=== PATIENT | female | born 1940 | race Caucasian/White ===

== ENCOUNTER → 2017-01-03 | Outpatient (CLI) | payer OTHER, MEDICARE | LOC: BHFA 14:45 | PROVIDERS: ATTEND Internal Medicine Cardiovascular Disease | DX: I10 Essential (primary) hypertension (principal); R60.9 Edema, unspecified; R06.02 Shortness of breath; I42.9 Cardiomyopathy, unspecified ==

== ENCOUNTER → 2017-01-20 | Outpatient (CLI) | payer OTHER, MEDICARE | LOC: BHFA 13:30 | PROVIDERS: ATTEND Internal Medicine Cardiovascular Disease | DX: I42.9 Cardiomyopathy, unspecified (principal); R06.02 Shortness of breath; I10 Essential (primary) hypertension; G47.33 Obstructive sleep apnea (adult) (pediatric); E78.5 Hyperlipidemia, unspecified ==

== ENCOUNTER → 2017-02-02 | Outpatient (CLI) | payer OTHER, MEDICARE | LOC: FIMAGING 14:02 | PROVIDERS: ATTEND Internal Medicine | DX: K80.20 Calculus of gallbladder without cholecystitis without obstruction (principal); K76.0 Fatty (change of) liver, not elsewhere classified; R16.0 Hepatomegaly, not elsewhere classified ==

== ENCOUNTER 2017-05-14 07:14 | Observation (INO) | payer OTHER, MEDICARE ==
[2017-05-14] MEDS ORDERED: ONDANSETRON 4 MG/2 ML VIAL IVP ONE (07:22)
[2017-05-14] MEDS ORDERED: HYDROmorphONE/DILAUDID 1 MG/ML INJ IVP ONE (07:22)
[2017-05-14] MEDS ORDERED: NS 500 ML IV ONE (07:23)
--- NOTE | 2017-05-14 07:25 | EDPHY ---
H & P Time Seen by Provider: 05/14/17 07:15 HPI/ROS: CHIEF COMPLAINT: Left-sided abdominal pain HISTORY OF PRESENT ILLNESS: Patient is a 76-year-old female with a history of CHF and Graves disease and obesity who comes to the emergency department complaining of left lower quadrant pain for the last 4 days now radiating up to her left upper quadrant. She still has self-diagnosed with diverticulitis is in the past and states that he usually resolves with a soft diet. She has been on the soft and then liquid diet since Tuesday without resolution. No fevers. Intermittent diarrhea that is been nonbloody. No vomiting. She does suffer from heartburn as well. It has not been worse lately. No urinary symptoms. No abdominal surgeries other than tubal ligation. REVIEW OF SYSTEMS: Constitutional: denies: chills, fever, recent illness, recent injury EENTM: denies: blurred vision, double vision, nose congestion Respiratory: denies: cough, shortness of breath Cardiac: denies: chest pain, irregular heart rate, lightheadedness, palpitations Gastrointestinal/Abdominal: See HPI Genitourinary: denies: dysuria, frequency, hematuria, pain Musculoskeletal: denies: joint pain, muscle pain Skin: denies: lesions, rash, jaundice, bruising Neurological: denies: headache, numbness, paresthesia, tingling, dizziness, weakness Hematologic/Lymphatic: denies: blood clots, easy bleeding, easy bruising Immunologic/allergic: denies: HIV/AIDS, transplant EXAM: GENERAL: Well-appearing, obese and in no acute distress. HEAD: Atraumatic, normocephalic. EYES: Pupils equal round and reactive to light, extraocular movements intact, sclera anicteric, conjunctiva are normal. ENT: TMs normal, nares patent, oropharynx clear without exudates. Moist mucous membranes. NECK: Normal range of motion, supple without lymphadenopathy or JVD. LUNGS: Breath sounds clear to auscultation bilaterally and equal. No wheezes rales or rhonchi. HEART: Regular rate and rhythm without murmurs, rubs or gallops. ABDOMEN: Soft, nontender, normoactive bowel sounds. No guarding, no rebound. No masses appreciated. BACK: No CVA tenderness, no spinal tenderness, step-offs or deformities EXTREMITIES: Normal range of motion, no pitting or edema. No clubbing or cyanosis. NEUROLOGICAL: Cranial nerves II through XII grossly intact. Normal speech, normal gait. 5/5 strength, normal movement in all extremities, normal sensation PSYCH: Normal mood, normal affect. SKIN: Warm, dry, normal turgor, no visible rashes or lesions. Source: Patient Exam Limitations: No limitations - Medical/Surgical History Hx Asthma: No Hx Chronic Respiratory Disease: No Hx Diabetes: No Hx Cardiac Disease: Yes Other PMH: CHF with ejection fraction 30%, home oxygen, Graves disease, obesity - Family History Significant Family History: No pertinent family hx - Social History Alcohol Use: Sober Drug Use: None Constitutional: Initial Vital Signs Temperature (C) 36.9 C 05/14/17 07:18 Heart Rate 86 05/14/17 07:18 Respiratory Rate 18 05/14/17 07:18 Blood Pressure 146/70 H 05/14/17 07:18 O2 Sat (%) 93 05/14/17 07:18 O2 Delivery Mode Room Air Allergies/Adverse Reactions: miconazole [From Neosporin AF] Allergy (Unknown, Verified 05/14/17 11:41) Unknown Home Medications: Medication Instructions Recorded Furosemide [Lasix 40 MG (*)] 40 mg PO BIDDIUR 03/27/10 Gabapentin [Neurontin] 600 mg PO TID 03/27/10 Levothyroxine [Synthroid 137 mcg 137 mcg PO DAILY06 03/27/10 (*)] Aspirin EC [Aspirin EC 325 mg (*)] 325 mg PO DAILY 05/14/17 Bupropion HCl [Wellbutrin Xl] 300 mg PO DAILY 05/14/17 Calcium Carbonate/Vitamin D3 1 tab PO DAILY 05/14/17 [Oyster Shell Calcium-Vit D Tab] Carvedilol [Coreg (*)] 25 mg PO BIDMEAL 05/14/17 Herbals/Supplements -Info Only 1 ea PO DAILY 05/14/17 Multivitamins [Multivitamin (*)] 1 each PO DAILY 05/14/17 Pramipexole Di-HCl [Mirapex 1 mg 1 - 2 mg PO HS PRN 05/14/17 (*)] Sacubitril/Valsartan 24/26Mg 1 tab PO BID 05/14/17 [Entresto 24 mg/26 mg (RX)] Spironolactone [Aldactone 25 MG 25 mg PO DAILY 05/14/17 (*)] Ciprofloxacin [Cipro] 500 mg PO BID #14 tab 05/15/17 metroNIDAZOLE [Flagyl 500 mg (*)] 500 mg PO BID #39 tab 05/15/17 Medical Decision Making - Diagnostics EKG Interpretation: An EKG obtained and was read and documented in trace view. Please see trace view for full reading and report. Left bundle branch block, no acute ischemic changes . ED Course/Re-evaluation: 10:00 a.m. we discussed the CT results. I recommended admission and antibiotics. The patient agrees. I discussed the case with Dr. Mathieu Kong who will admit to the medical service. Patient is currently not having any cardiac issues. Differential Diagnosis: Partial list of the Differential diagnosis considered include but were not limited to; diverticulitis, perforation, kidney stone, urinary tract infection and although unlikely based on the history and physical exam, I also considered obstruction, ischemia, chest pain. - Data Points Laboratory Results: Laboratory Results 05/14/17 08:50 05/14/17 08:50 Medications Given: Discontinued Medications Acetaminophen (Tylenol) 650 mg PO Q6H PRN PRN Reason: Pain, Mild/Fever, Can Take PO Stop: 11/10/17 18:00 Last Admin: 05/15/17 07:56 Dose: 650 mg Aspirin Buffered (Aspirin Ec) 325 mg PO DAILY [facility] Stop: 11/11/17 08:59 Last Admin: 05/15/17 07:57 Dose: 325 mg Bupropion HCl (Wellbutrin Xl) 300 mg PO DAILY VANDA Stop: 11/11/17 08:59 Last Admin: 05/15/17 12:14 Dose: 300 mg Calcium/Vitamin D (Calcium Carb W/Vit D) 500 mg PO DAILY [facility] Stop: 11/11/17 08:59 Last Admin: 05/15/17 08:00 Dose: Not Given Carvedilol (Coreg) 25 mg PO BIDMEAL [facility] Stop: 11/10/17 17:59 Last Admin: 05/15/17 07:58 Dose: 25 mg Enoxaparin Sodium (Lovenox) 40 mg SC DAILY [facility] Stop: 11/11/17 08:59 Last Admin: 05/15/17 07:54 Dose: 40 mg Furosemide (Lasix) 40 mg PO BIDDIUR [facility] Stop: 11/10/17 14:59 Last Admin: 05/15/17 07:58 Dose: 40 mg Gabapentin (Neurontin) 600 mg PO TID VANDA Stop: 11/10/17 15:59 Last Admin: 05/15/17 07:57 Dose: 600 mg Hydromorphone HCl (Dilaudid) 0.5 mg IVP EDNOW ONE Stop: 05/14/17 07:23 Last Admin: 05/14/17 10:50 Dose: Not Given Hyoscyamine Sulfate (Levsin, Hyomax-Sl) 0.125 mg PO Q6HRS PRN PRN Reason: abd pain Stop: 11/10/17 12:36 Last Admin: 05/14/17 14:23 Dose: 0.125 mg Sodium Chloride (Ns) 500 mls @ 0 mls/hr IV EDNOW ONE; Wide Open PRN Reason: Protocol Stop: 05/14/17 07:24 Last Admin: 05/14/17 09:13 Dose: 500 mls Levofloxacin/Dextrose (Levaquin 750 Mg (Premix)) 150 mls @ 100 mls/hr IV EDNOW ONE PRN Reason: Protocol Stop: 05/14/17 11:27 Last Admin: 05/14/17 11:54 Dose: 150 mls Metronidazole/Sodium Chloride (Flagyl 500 Mg (Premix)) 100 mls @ 100 mls/hr IV EDNOW ONE PRN Reason: Protocol Stop: 05/14/17 10:59 Last Admin: 05/14/17 10:31 Dose: 100 mls Levofloxacin/Dextrose (Levaquin 750 Mg (Premix)) 150 mls @ 100 mls/hr IV DAILY VANDA PRN Reason: Protocol Stop: 06/14/17 08:59 Last Admin: 05/15/17 07:54 Dose: 150 mls Metronidazole/Sodium Chloride (Flagyl 500 Mg (Premix)) 100 mls @ 100 mls/hr IV Q8H VANDA PRN Reason: Protocol Stop: 06/13/17 17:59 Last Admin: 05/15/17 10:24 Dose: 100 mls Levothyroxine Sodium (Synthroid) 137 mcg PO DAILY06 VANDA Stop: 11/11/17 05:59 Last Admin: 05/15/17 05:23 Dose: 137 mcg Multivitamins (Tab-A-Sharon) 1 each PO DAILY VANDA Stop: 11/11/17 08:59 Last Admin: 05/15/17 08:00 Dose: 1 each Ondansetron HCl (Zofran) 4 mg IVP EDNOW ONE Stop: 05/14/17 07:23 Last Admin: 05/14/17 10:50 Dose: Not Given Pramipexole Dihydrochloride (Mirapex) 1 - 2 mg PO HS PRN PRN Reason: restless leg Stop: 11/10/17 12:28 Last Admin: 05/14/17 21:22 Dose: 1 mg Sacubitril/Valsartan (Entresto 24 Mg/26 Mg) 1 ea PO BID VANDA Stop: 11/10/17 20:59 Last Admin: 05/15/17 07:59 Dose: 1 ea Spironolactone (Aldactone) 25 mg PO DAILY VANDA Stop: 11/11/17 08:59 Last Admin: 05/15/17 12:15 Dose: 25 mg Departure - Departure Disposition: [facility] Acute Clinical Impression: Diverticulitis large intestine w/o perforation or abscess w/o bleeding Condition: Fair
[2017-05-14 08:10] LABS: COLOR YELLOW; LEUKOCYTE ESTERASE,URINE NEGATIVE (NEGATIVE); NITRITE,URINE NEGATIVE (NEGATIVE)
[2017-05-14 08:14] LABS: BACTERIA TRACE /hpf (NONE SEEN); MUCUS TRACE /lpf (NONE-1+)
--- NOTE | 2017-05-14 08:22 | CPEKG ---
Heart Rate: 78 RR Interval: 769 P-R Interval: 196 QRSD Interval: 156 QT Interval: 432 QTC Interval: 493 P Cotuit: 62 QRS Cotuit: -44 T Wave Cotuit: 120 EKG Severity - ABNORMAL ECG - EKG Impression: SINUS RHYTHM EKG Impression: LEFT BUNDLE BRANCH BLOCK Electronically Signed By: Jonathan Gant 14-May-2017 08:58:38
[2017-05-14] MEDS ORDERED: IOPAMIDOL (ISOVUE-300) 100 ML BTL ONE (08:49)
[2017-05-14 09:02] LABS: % IMMATURE GRANULYOCYTES 0.6 % (0.0-1.1); ABSOLUTE IMMATURE GRANULOCYTES 0.05 10^3/uL (0.00-0.10); ADD DIFF? NO; ADD MORPH? NO; ADD SCAN? NO; ATYPICAL LYMPHOCYTE FLAG 0 (0-99); FRAGMENT RBC FLAG 0 (0-99); HEMATOCRIT 41.7 % (38.0-47.0); HEMOGLOBIN 14.5 g/dL (12.6-16.3); LEFT SHIFT FLG 0 (0-99); LIPEMIA HEMOLYSIS FLAG 90 (0-99); MEAN CELL HEMOGLOBIN 33.3 pg (27.9-34.1); MEAN CELL HEMOGLOBIN CONCENTR. 34.8 g/dL (32.4-36.7); MEAN CELL VOLUME 95.9 fL (81.5-99.8); MEAN PLATELET VOLUME 10.6 fL (8.7-11.7); PLATELET CLUMPS FLAG 0 (0-99); PLATELET COUNT 191 10^3/uL (150-400); RED BLOOD CELL COUNT 4.35 10^6/uL (4.18-5.33); RED CELL DISTRIBUTION WIDTH 13.8 % (11.5-15.2)
[2017-05-14 09:13] LABS: ALANINE AMINOTRANSFERASE 45 IU/L (9-52); ALBUMIN 3.8 g/dL (3.5-5.0); ALKALINE PHOSPHATASE 146 IU/L (38-126); ANION GAP 10 mEq/L (8-16); ASPARTATE AMINOTRANSFERASE 25 IU/L (14-46); BILIRUBIN,TOTAL 0.6 mg/dL (0.1-1.4); BILIRUBIN-CONJUGATED 0.1 mg/dL (0.0-0.5); BILIRUBIN-UNCONJUGATED 0.5 mg/dL (0.0-1.1); CALCIUM 9.1 mg/dL (8.5-10.4); CARBON DIOXIDE 30 mEq/l (22-31); CHLORIDE 100 mEq/L (97-110); CREATININE 0.9 mg/dL (0.6-1.0); GLOMERULAR FILTRATION RATE > 60; GLUCOSE 126 mg/dL (70-100); SODIUM 140 mEq/L (134-144); TOTAL PROTEIN 6.6 g/dL (6.3-8.2)
[2017-05-14] MEDS ORDERED: PRAMIPEXOLE 1 MG TAB PO PRN (12:29)
[2017-05-14] MEDS ORDERED: HYOSCYAMINE SULFATE 0.125 MG TAB PO PRN (12:37)
--- NOTE | 2017-05-14 13:13 | GHP ---
[f rep st] HISTORY AND PHYSICAL DATE OF ADMISSION: 05/14/2017 CHIEF COMPLAINT: Abdominal pain. HISTORY OF PRESENT ILLNESS: This is a 76-year-old female with history of cardiomyopathy, with ejecti on fraction in the mid 30s, as well as diverticulitis, presented to the emergency department today wi th abdominal pain. The patient states that she has had bouts of this type of pain for years. The la st time she was formally diagnosed with diverticulitis was about 7 years ago, when she was treated wi antibiotics. She did have a colonoscopy about 10 years ago, which she tells me was unremarkable. The patient developed some crampy left lower quadrant abdominal pain Tuesday night. She then start ed a clear liquid diet. Either Tuesday or night she noticed low-grade fever. She has bee n on a clear liquid diet since her symptoms on Tuesday, but today, developed which she described as a sharp left-sided pain, rated 7/10, that subsequently brought her in the emergency department for further evaluation. She d enies any nausea or vomiting. Her last bowel movement was on , and was described as diarrhea . PAST MEDICAL HISTORY: 1. Systolic congestive heart failure/cardiomyopathy with ejection fraction in the mid 30s. Followed by Dr. Okeefe in Cardiology. 2. Graves disease, status post radioactive iodine ablation. Now on replacement. 3. Breast cancer, status post mastectomy. 4. Obstructive sleep apnea. 5. Chronic hypoxemic respiratory failure due to congestive heart failure. HOME MEDICATIONS: Reviewed, refer to [facility] [employer] for details. ALLERGIES: Miconazole. SOCIAL HISTORY: She denies any tobacco or illicit drug use. She is a former smoker. She drinks vanda roximately an ounce of bourbon per night. FAMILY HISTORY: Reviewed and noncontributory. REVIEW OF SYSTEMS: Comprehensive 10-point review of systems was done and is negative, except for as mentioned in HPI and below. CARDIOVASCULAR: The patient denies any chest pain. She is chronically short of breath and is on home oxygen. PHYSICAL EXAM: VITAL SIGNS: Blood pressure 129/86, pulse 75, respiratory rate 18, O2 saturation 94% on room air. Temperature afebrile. GENERAL: In no acute distress. HEART: S1, S2. LUNGS: Clear . No wheezes, rales, or rhonchi. ABDOMEN: Soft, with mild distention. There is some tenderness to deep palpation in the left lower quadrant. There is no guarding or rebound tenderness. Bowel sound s are normoactive. EXTREMITIES: No clubbing or cyanosis. NEURO: Cranial nerves 2-12 grossly intac t. No focal motor or sensory deficits. SKIN: Clear, no rashes. DIAGNOSTICS: CT of the abdomen was reviewed, showing acute diverticulitis at the junction of the misa cending and sigmoid colon without abscess or perforation. There is also a small right adrenal gland nodule, it is mildly increased 2011, and most likely compatible with adenoma. WBC is 8.6, hemoglobin 14.5, hematocrit 41.7, platelets 191. Sodium 140, potassium 4, chloride 100, CO2 30, BUN 12, creatinine 0.9, glucose 126. LFTs unremarkable, with the exception of alk phosphatas e of 146. EKG, which I visualized and personally interpreted, shows sinus rhythm, rate 78 beats per minute, wit h left bundle branch block. ASSESSMENT AND PLAN: This is a 76-year-old female with history of cardiomyopathy, ejection fraction in the mid 30s, presenting with: 1. Abdominal pain, most likely due to diverticulitis. Plan: The patient will be placed on observat ion, where we will continue IV levofloxacin and Flagyl. We will start a soft diet. If she continues to be able to tolerate diet with adequate pain control, she may be eligible for discharge in the [facility]. However, if her pain persists, and she is unable to tolerate p.o., she may require inpatient h ospitalization. 2. History of cardiomyopathy with chronic respiratory failure, that appears to be compensated. Plan : We will monitor for signs and symptoms of congestive heart failure. 3. Adrenal nodule seen on CT. Most likely representing adenoma per Dr. Huitron in radiology. Plan: The patient should discuss this with her primary care provider, and monitor as indicated. /[id number]/MODL
[2017-05-14] MEDS: FUROSEMIDE 40 MG TAB PO SCH (14:20)
[2017-05-14] MEDS ORDERED: NON-FORMULARY NEW DRUG (Gabapentin [Neurontin] 600 MG) PO SCH (16:00)
[2017-05-14] MEDS: GABAPENTIN 300 MG CAP PO SCH ×2 (16:49→20:46)
[2017-05-14] MEDS: CARVEDILOL 25 MG TAB PO SCH (16:50)
[2017-05-14] MEDS ORDERED: ACETAMINOPHEN 325 MG TAB PO PRN (18:01)
[2017-05-14] MEDS: SACUBITRIL/VALSARTAN 24/26MG 1 EA TAB PO SCH (20:46)
[2017-05-14 23:19] VITALS: RESP 18
[2017-05-15] MEDS ORDERED: LEVOTHYROXINE 137 MCG TAB PO SCH (06:00)
[2017-05-15] MEDS: GABAPENTIN 300 MG CAP PO SCH (07:57)
[2017-05-15] MEDS: FUROSEMIDE 40 MG TAB PO SCH (07:58)
[2017-05-15] MEDS: CARVEDILOL 25 MG TAB PO SCH (07:58)
[2017-05-15] MEDS: SPIRONOLACTONE 25 MG TAB PO SCH ×2 (07:58→12:15)
[2017-05-15] MEDS: buPROPion XL 150 MG TAB PO SCH ×3 (07:59→12:14)
[2017-05-15] MEDS: SACUBITRIL/VALSARTAN 24/26MG 1 EA TAB PO SCH (07:59)
[2017-05-15] MEDS ORDERED: CALCIUM CARB W/VIT D 500 MG TAB PO SCH ×2 (09:00)
[2017-05-15] MEDS ORDERED: ASPIRIN EC 325 MG TAB PO SCH (09:00)
[2017-05-15] MEDS ORDERED: Herbals/Supplements -Info Only PO SCH (09:00)
[2017-05-15] MEDS ORDERED: ENOXAPARIN 40 MG/0.4 ML SYR SC SCH (09:00)
[2017-05-15] MEDS ORDERED: NON-FORMULARY NEW DRUG (Bupropion Hcl [Wellbutrin Xl] 300 MG) PO SCH (09:00)
[2017-05-15] MEDS ORDERED: MULTIVITAMINS 1 EACH TAB PO SCH (09:00)
[2017-05-15 11:15] VITALS: BP 129/61; PULSE 80; TEMP 97.5; O2SAT 94
--- NOTE | 2017-05-15 12:18 | PDIAF ---
- Diagnosis Diagnosis: diverticulitis Code Status: Full Code - Medication Management Discharge Medications: Medications to Continue on Transfer Furosemide [Lasix 40 MG (*)] 40 mg PO BIDDIUR 03/27/10 [Last Taken 05/13/17 15: 00] Gabapentin [Neurontin] 600 mg PO TID 03/27/10 [Last Taken 05/14/17 06:00] Levothyroxine [Synthroid 137 mcg (*)] 137 mcg PO DAILY06 03/27/10 [Last Taken ] Aspirin EC [Aspirin EC 325 mg (*)] 325 mg PO DAILY 05/14/17 [Last Taken 05/13/17 ] Bupropion HCl [Wellbutrin Xl] 300 mg PO DAILY 05/14/17 [Last Taken 05/13/17] Calcium Carbonate/Vitamin D3 [Oyster Shell Calcium-Vit D Tab] 1 tab PO DAILY 05/20 [Last Taken 05/13/17] Carvedilol [Coreg (*)] 25 mg PO BIDMEAL 05/14/17 [Last Taken 05/13/17 18:00] Herbals/Supplements -Info Only 1 ea PO DAILY 05/14/17 [Last Taken Unknown] Multivitamins [Multivitamin (*)] 1 each PO DAILY 05/14/17 [Last Taken 05/13/17] Pramipexole Di-HCl [Mirapex 1 mg (*)] 1 - 2 mg PO HS PRN 05/14/17 [Last Taken ] Sacubitril/Valsartan 24/26Mg [Entresto 24 mg/26 mg (RX)] 1 tab PO BID 05/14/17 [ Last Taken Unknown] Spironolactone [Aldactone 25 MG (*)] 25 mg PO DAILY 05/14/17 [Last Taken ] Ciprofloxacin [Cipro] 500 mg PO BID #14 tab 05/15/17 [Last Taken Unknown] metroNIDAZOLE [Flagyl 500 mg (*)] 500 mg PO BID #39 tab 05/15/17 [Last Taken Unknown] Discharge Medications: Refer to the Discharge Home Medication list for PRN reason. - Orders Services needed: Home Care, Physical Therapy Home Care Face to Face: I certify that this patient was under my care and that I had the required [id number] encounter meeting the encounter requirements on the discharge day. My findings support the fact that the patient is homebound as defined in Home Care Face to Face Continued: CMS Chapter 7 Medicare Benefits Manual 30.1.1 , The condition of the patient is such that there exists a normal inability to leave home and consequently, leaving home would require a considerable and taxing effort. - Follow Up Care Current Providers and Referrals: Carolina Pineda MD [Primary Care Provider] - As per Instructions
--- NOTE | 2017-05-15 12:37 | GDS ---
[f rep st] DISCHARGE SUMMARY DISCHARGE DIAGNOSES: 1. Acute diverticulitis. 2. History of cardiomyopathy with chronic respiratory failure and compensated congestive heart failu re. 3. Adrenal nodule, most likely due to adenoma per radiology report. HOSPITAL COURSE: Acute diverticulitis: The patient presented to the hospital with abdominal pain. She was started on IV Levaquin and Flagyl. On hospital day #1, her abdominal pain is improving. She has been afebrile. She is tolerating a regular diet. On day of discharge, she states she is feelin g better and is agreeable to leave the hospital. PHYSICAL EXAM: VITAL SIGNS: On day of discharge, blood pressure 129/61, pulse of 80, respiratory ra te 18, O2 saturation 94% on 2 L. Temperature afebrile. GENERAL: No acute distress. HEART: S1, S2 . LUNGS: Clear. No wheezes, rales or rhonchi. ABDOMEN: Soft, nontender, nondistended. No guardi ng or rebound tenderness. Normoactive bowel sounds. DIAGNOSTICS DONE THIS HOSPITAL STAY: A CT of the abdomen done 05/14/2017, refer to report. DISCHARGE MEDICATIONS: Please refer to discharge medication reconciliation in [facility] for full deta ils. Below is a preliminary list. New medications on hospital discharge: Cipro 500 mg p.o. b.i.d. to complete 2-week course. Flagyl 5 00 mg p.o. t.i.d. to complete a 2-week course. DISCHARGE INSTRUCTIONS: The patient will be discharged from the hospital, where she should follow up with her primary care provider as scheduled. She was urged to seek medical attention if her pain wo rsens, she becomes febrile, or has any worsening of her symptoms. /[id number]/MODL
--- NOTE | 2017-05-15 17:18 | ASDISCHSUM ---
Discharge Information Plan Status:Home with Home Health Medically Cleared to Leave: Discharge Date:05/15/2017 12:59 PM D/C Disposition:Home Health Service ADT D/C Disposition:Home, Routine, Self-Care Projected Discharge Date:05/15/2017 12:59 PM Transportation at D/C: Discharge Delay Reason: Follow-Up Date:05/15/2017 12:59 PM Discharge Slot: Final Diagnosis: Placement Information Patient Contact Information Contact Name:ALINA Relationship:Daughter Address:[address] City:[place] Alternate Phone: State/Zip Code:[place] [address] Email: Financial Information Financial Class: Primary Plan Desc:MEDICARE OUTPATIENT Primary Plan Number:[id number] Secondary Plan Desc:[employer]/MDR SUPPLEMENT Secondary Plan Number:[id number] Assessment Information BC CM Progress Note CM Note CM Note Notes: PT recommending HHC and use of walker which is new to pt. List given to daughter for med supply/loan closets. CM met w/pt and daughter and discussed HHC; pt agreeable to home PT, would like to use [facility]. Referral sent to [facility] and spoke w/[facility] who said they could accept. Orders/info sent, conf rec'd. Notified pt at home that [facility] could accept and that they would call her tomorrow. Date Signed: 05/15/2017 05:17 PM Electronically Signed By:Michelle Colmenares RN Intervention Information
== END 2017-05-15 12:59 | disposition home or self-care (01) ==
LOC: EDUNIT# → F3E 10:55
PROVIDERS: ADMIT Family Medicine; ATTEND Family Medicine
DX: K57.92 Diverticulitis of intestine, part unspecified, without perforation or abscess without bleeding (principal); I50.9 Heart failure, unspecified; J96.10 Chronic respiratory failure, unspecified whether with hypoxia or hypercapnia; E27.9 Disorder of adrenal gland, unspecified; E05.00 Thyrotoxicosis with diffuse goiter without thyrotoxic crisis or storm; E66.9 Obesity, unspecified; Z86.79 Personal history of other diseases of the circulatory system
CPT/HCPCS: 74177; 93005; 97162; 97165; G0378; G8978; G8979; G8987; G8988; G8989; J1650; J1956; Q9967; 96365

== ENCOUNTER → 2017-08-26 | Outpatient (CLI) | payer OTHER, MEDICARE | LOC: CIMAGING 14:42 | PROVIDERS: ATTEND Podiatrist | DX: M85.872 Other specified disorders of bone density and structure, left ankle and foot (principal); L97.521 Non-pressure chronic ulcer of other part of left foot limited to breakdown of skin | CPT/HCPCS: 73630-PO ==

== ENCOUNTER → 2017-11-21 | Outpatient (CLI) | payer OTHER, MEDICARE | LOC: BHFA 10:30 | PROVIDERS: ATTEND Internal Medicine Cardiovascular Disease | DX: Z01.810 Encounter for preprocedural cardiovascular examination (principal); I50.23 Acute on chronic systolic (congestive) heart failure; I11.0 Hypertensive heart disease with heart failure; I44.7 Left bundle-branch block, unspecified ==

== ENCOUNTER 2018-06-05 16:00 | Inpatient (IN) | payer OTHER, MEDICARE ==
--- NOTE | 2018-06-05 16:24 | EDPHY ---
H & P Time Seen by Provider: 06/05/18 16:11 HPI/ROS: CHIEF COMPLAINT: Shortness of breath, leg edema HISTORY OF PRESENT ILLNESS: The patient is a 69-year-old female with a history of systolic congestive heart failure and cardiomyopathy who presents emergency department with increasing shortness of breath and pedal edema. She was seen by [facility]. She had increased weight of 25 lb from 1 year ago. The she is noted to have an EF of 33%. She was sent to the emergency department for admission and further evaluation. REVIEW OF SYSTEMS: 10 systems were reveiwed and are negative with the exception of the elements mentioned in the history of present illness. Past Medical/Surgical History: Includes CHF, Graves disease, obesity hypertension, obstructive sleep apnea Smoking Status: Former smoker Physical Exam: 36.4, 152/90, 81, 20, 90% on room air GENERAL: No acute distress, alert. Obese HEENT: Eyes normal to inspection, normal pharynx, no signs of dehydration. NECK: Normal, supple. RESPIRATORY: Clear to auscultation bilaterally, no rales, rhonchi or wheezing. CVS: Regular rate and rhythm, no rubs, murmurs, or gallops. ABDOMEN: Soft, nontender, nondistended, no organomegaly. BACK: Normal to inspection, no CVA tenderness. SKIN: Normal color, no rash, warm, dry. No pallor. EXTREMITIES: No pedal edema, no calf tenderness, no Homans sign or cords, no joint swelling. NEURO/PSYCH: Alert and oriented, normal mood and affect, normal motor sensory exam. Constitutional: Initial Vital Signs Temperature (C) 36.4 C 06/05/18 16:05 Heart Rate 81 06/05/18 16:05 Respiratory Rate 20 06/05/18 16:05 Blood Pressure 152/90 H 06/05/18 16:05 O2 Sat (%) 90 L 06/05/18 16:05 O2 Delivery Mode Nasal Cannula O2 (L/minute) 3 Allergies/Adverse Reactions: miconazole [From Neosporin AF] Allergy (Unknown, Verified 05/14/17 11:41) Unknown amoxicillin [From Augmentin] Allergy (Verified 06/05/18 16:10) clavulanic acid [From Augmentin] Allergy (Verified 06/05/18 16:10) Home Medications: Medication Instructions Recorded Furosemide [Lasix 40 MG (*)] 40 mg PO BIDDIUR 03/27/10 Gabapentin [Neurontin] 600 mg PO TID 03/27/10 Levothyroxine [Synthroid 137 mcg 137 mcg PO DAILY06 03/27/10 (*)] Aspirin EC [Aspirin EC 325 mg (*)] 325 mg PO DAILY 05/14/17 Bupropion HCl [Wellbutrin Xl] 300 mg PO DAILY 05/14/17 Calcium Carbonate/Vitamin D3 1 tab PO DAILY 05/14/17 [Oyster Shell Calcium-Vit D Tab] Carvedilol [Coreg (*)] 25 mg PO BIDMEAL 05/14/17 Herbals/Supplements -Info Only 1 ea PO DAILY 05/14/17 Multivitamins [Multivitamin (*)] 1 each PO DAILY 05/14/17 Pramipexole Di-HCl [Mirapex 1 mg 1 - 2 mg PO HS PRN 05/14/17 (*)] Sacubitril/Valsartan 24/26Mg 1 tab PO BID 05/14/17 [Entresto 24 mg/26 mg (RX)] Spironolactone [Aldactone 25 MG 25 mg PO DAILY 05/14/17 (*)] Ciprofloxacin [Cipro] 500 mg PO BID #14 tab 05/15/17 metroNIDAZOLE [Flagyl 500 mg (*)] 500 mg PO BID #39 tab 05/15/17 Medical Decision Making - Diagnostics Imaging Results: Imaging Impressions Chest X-Ray 06/05/18 16:25 Impression: Moderate cardiac enlargement with pulmonary vascular congestion in the lower lungs bilaterally suggestive of congestive failure.. ED Course/Re-evaluation: In the emergency department I discussed possible etiologies with the patient. I answered all her questions. IV was placed. Laboratory studies, chest x-ray and EKG were obtained. EKG: Left bundle branch block at 75. Troponin is 0.02 White count is 10.82. Hematocrit is normal. Chemistry panel is pending. BNP is 402. Chemistry panel is unremarkable. I discussed the case with Dr. Wyatt. The patient was given Lasix 40 mg IV. Differential Diagnosis: My differential includes but is not limited to ACS, acute AR, CHF, PE, pneumonia , bronchitis, respiratory failure - Data Points Laboratory Results: Laboratory Results 06/05/18 16:32 06/05/18 16:32 06/05/18 06/05/18 06/05/18 16:40 16:32 16:32 WBC RBC Hgb Hct MCV MCH MCHC RDW Plt Count MPV Neut % (Auto) Lymph % (Auto) [place] % (Auto) Eos % (Auto) Baso % (Auto) Nucleat RBC Rel Count Absolute Neuts (auto) Absolute Lymphs (auto) Absolute Monos (auto) Absolute Eos (auto) Absolute Basos (auto) Absolute Nucleated RBC Immature Gran % Immature Gran # PT 12.7 SEC SEC (12.0-15.0) INR 0.93 (0.83-1.16) APTT 24.5 SEC SEC (23.0-38.0) Sodium 136 mEq/L mEq/L (135-145) Potassium 4.3 mEq/L mEq/L (3.3-5.0) Chloride 97 mEq/L mEq/L (97-110) Carbon Dioxide 32 mEq/l H mEq/l (22-31) Anion Gap 7 mEq/L mEq/L (6-14) BUN 21 mg/dL mg/dL (7-23) Creatinine 0.8 mg/dL mg/dL (0.6-1.0) Estimated GFR > 60 Glucose 141 mg/dL H mg/dL (70-100) Calcium 9.1 mg/dL mg/dL (8.5-10.4) POC Troponin I 0.02 ng/mL ng/mL (0.00-0.08) NT-Pro-B Natriuret Pep 402 pg/mL pg/mL (0-450) 06/05/18 16:32 WBC 10.82 10^3/uL H 10^3/uL (3.80-9.50) RBC 4.42 10^6/uL 10^6/uL (4.18-5.33) Hgb 14.3 g/dL g/dL (12.6-16.3) Hct 43.6 % % (38.0-47.0) MCV 98.6 fL fL (81.5-99.8) MCH 32.4 pg pg (27.9-34.1) MCHC 32.8 g/dL g/dL (32.4-36.7) RDW 15.0 % % (11.5-15.2) Plt Count 211 10^3/uL 10^3/uL (150-400) MPV 10.3 fL fL (8.7-11.7) Neut % (Auto) 79.3 % H % (39.3-74.2) Lymph % (Auto) 7.7 % L % (15.0-45.0) [place] % (Auto) 6.7 % % (4.5-13.0) Eos % (Auto) 5.0 % % (0.6-7.6) Baso % (Auto) 0.6 % % (0.3-1.7) Nucleat RBC Rel Count 0.0 % % (0.0-0.2) Absolute Neuts (auto) 8.58 10^3/uL H 10^3/uL (1.70-6.50) Absolute Lymphs (auto) 0.83 10^3/uL L 10^3/uL (1.00-3.00) Absolute Monos (auto) 0.72 10^3/uL 10^3/uL (0.30-0.80) Absolute Eos (auto) 0.54 10^3/uL H 10^3/uL (0.03-0.40) Absolute Basos (auto) 0.07 10^3/uL 10^3/uL (0.02-0.10) Absolute Nucleated RBC 0.00 10^3/uL 10^3/uL (0-0.01) Immature Gran % 0.7 % % (0.0-1.1) Immature Gran # 0.08 10^3/uL 10^3/uL (0.00-0.10) PT INR APTT Sodium Potassium Chloride Carbon Dioxide Anion Gap BUN Creatinine Estimated GFR Glucose Calcium POC Troponin I NT-Pro-B Natriuret Pep Point of Care Test Results: Chemistry 06/05/18 16:40 POC Troponin I 0.02 ng/mL ng/mL (0.00-0.08) Departure - Departure Disposition: [facility] Acute Clinical Impression: Shortness of breath CHF (congestive heart failure) Qualifiers: Heart failure type: systolic Heart failure chronicity: acute Qualified Code(s) : I50.21 - Acute systolic (congestive) heart failure Condition: Good Referrals: Carolina Pineda MD [Primary Care Provider] - As per Instructions
[2018-06-05 16:47] LABS: PLATELET COUNT 211 10^3/uL (150-400)
[2018-06-05 16:55] LABS: INR 0.93 (0.83-1.16); PROTIME(PATIENT) 12.7 SEC (12.0-15.0)
--- NOTE | 2018-06-05 17:40 | GCON ---
CONGESTIVE HEART FAILURE CONSULT DATE OF CONSULTATION: 06/05/2018 CHIEF COMPLAINT: 20-pounds weight gain with weeping lower extremity edema and dyspnea on exertion at 60-70 feet. HISTORY OF PRESENT ILLNESS: The patient is a 77-year-old woman with a past medical history of conges tive heart failure with an LVEF of 33%. She says she had a heart catheterization in the , which showed no coronary artery disease. Her last known echo in January of 2017, demonstrated an LVEF of 33% with mild mitral and tricuspid insufficiency with an estimated PA systolic pressure of 47 mmHg. She is about 14 months overdue to see us. She has been seen in a wound clinic for chronic leg ulcers. She has gained about 20 pounds over the last 6 months and has weeping edema up to her groin and bilat eral legs. She is mostly wheelchair dependent but can walk about 60-70 feet before becoming markedly short of breath. She denies chest pain or syncope or PND. She admits she does not take her Lasix o n a regular basis and has run out of her Entresto for 2-3 weeks at a time. PAST MEDICAL HISTORY: Congestive heart failure with an LVEF of 33%, chronic left bundle branch block on EKG, sleep apnea, previous breast cancer in 1998 treated with bilateral mastectomy but no chemoth erapy or radiation to the chest, moderate obesity, hypothyroidism, diabetes mellitus, and noncomplian ce. PAST SURGICAL HISTORY: Bilateral mastectomies. CURRENT MEDICATIONS: Aldactone 25 mg per day, BuSpar 300 mg per day, carvedilol 25 mg per day, aspir in 325 mg per day, Entresto 24/26 mg b.i.d., Neurontin 600 mg t.i.d., Lasix 40 mg b.i.d., Synthroid 1 37 mcg per day. ALLERGIES: Adhesive tape, Augmentin, and neomycin. SOCIAL HISTORY: The patient denies tobacco or excessive alcohol intake. FAMILY HISTORY: Unremarkable for premature coronary artery disease. REVIEW OF SYSTEMS: The patient reports no TIA or CVA symptoms. She has no fevers or chills or GI bl eed symptoms such as hematemesis, melena, or bright red blood per rectum. PHYSICAL EXAM: VITAL SIGNS: Weight 268 pounds. Pulse 68, blood pressure 130/70, respirations 22. GENERAL: A morbidly obese woman, sitting in a wheelchair without chest pain or using accessory respi ratory muscles. EYES: Pupils equal and reactive to light. ENT: Oral mucosa with no cyanosis. NEC K: Jugular venous pressure to 9-10 cm. Carotid pulses 2+ bilaterally with no obvious bruits. No nu chal rigidity. LUNGS: Clear to auscultation bilaterally without rales, rhonchi, or wheezing. HEART: Enlarged PMI. Regular rate and rhythm with 2/6 holosystolic murmur and positive S3 gallop. ABDOME N: Soft and nontender. No guarding or rebound. EXTREMITIES: 3 to 4+ weeping edema to her groin bi laterally. MUSCULOSKELETAL: No scoliosis. NEURO: Normal affect and mood. SKIN: No bleeding or c yanosis. LABORATORY DATA: Last known labs November of 2017: White count 8.1, hematocrit 43, platelets 2000, MCV 9 6. Sodium 139, potassium 4.6, chloride 100, bicarb 28, BUN 21, creatinine 0.9, glucose 101. LFTs wi thin normal limits. IMPRESSION/RECOMMENDATIONS: A 77-year-old woman with acute on chronic systolic heart failure with la st measured left ventricular ejection fraction of 33% and marked volume overload. I think some of th is is from medical noncompliance, but she could have worsening left ventricular dysfunction. She is at the point now where she needs to be hospitalized with intravenous Lasix and a urinary Henson. PLAN: 1. Will transfer to the ER for admission via the hospitalist staff. 2. Would start her on Lasix drip. 3. Would continue rest of medications as per home dosing. 4. Would probably place a urinary Henson for the next 5-7 days. I think there is going to be a lot o f diuresis. 5. Once she is more euvolemic in 4-5 days, would do an echocardiogram to reassess LV function. 6. Eventually could be transitioned from IV Lasix to p.o. Demadex. 7. Cardiology service will follow with you during the hospitalization. /[id number]/MODL
[2018-06-05] MEDS ORDERED: ONDANSETRON DISINTEGRATING 4 MG TAB PO PRN (18:21)
[2018-06-05] MEDS ORDERED: PROMETHAZINE HCL 25 MG/ML INJ IVP PRN (18:21)
[2018-06-05] MEDS ORDERED: HYDROmorphONE/DILAUDID 1 MG/ML INJ IVP PRN (18:21)
[2018-06-05] MEDS ORDERED: ONDANSETRON 4 MG/2 ML VIAL IVP PRN (18:21)
[2018-06-05] MEDS ORDERED: HYDROCODONE/APAP 5/325 TAB PO PRN (18:21)
[2018-06-05] MEDS ORDERED: FUROSEMIDE 40 MG/4 ML VIAL IVP ONE (18:24)
--- NOTE | 2018-06-05 19:55 | CPEKG ---
Test Reason : OPEN Blood Pressure : / mmHG Vent. Rate : 075 BPM Atrial Rate : 075 BPM P-R Int : 172 ms QRS Dur : 153 ms QT Int : 442 ms P-R-T Axes : 047 -48 068 degrees QTc Int : 494 ms Sinus rhythm Left bundle branch block Confirmed by Harriet Sun ([id number]) on 06/05/2018 7:54:48 PM Referred By: Confirmed By:Harriet Sun
--- NOTE | 2018-06-05 21:08 | PDGENHP ---
History and Physical - Chief Complaint weeping edema - History of Present Illness 77 yo F with PMH that includes chronic systolic heart failure with prior EF of 30% as well as obesity and JENNA presenting from cardiology clinic with concerns of increased lower extremity swelling with now weeping edema to the groin bilaterally. She notes she has had some issues with increased shortness of breath as well, but that seemed to be intermittent and present only with exertion. She has gained around 25 pound in the last month or so but notes that swelling in the legs only got very severe in the last 2 weeks. She notes she has failed to follow up with cardiology as she was scheduled to and given that her PCP was on vacation did not follow up with her PCP either. She denies chest pain, she denies fevers or chills, she has never had such significant swelling in the past. She has not had any change in her bowel habits but notes she has chronic diarrhea. She lives independently with her son who notes he was concerned about her legs but the swelling seemed to more or less come and go and so he did not realize how bad it had gotten. History Information - Allergies/Home Medication List Allergies/Adverse Reactions: miconazole [From Neosporin AF] Allergy (Unknown, Verified 05/14/17 11:41) Unknown amoxicillin [From Augmentin] Allergy (Verified 06/05/18 16:10) clavulanic acid [From Augmentin] Allergy (Verified 06/05/18 16:10) Home Medications: Furosemide [Lasix 40 MG (*)] 40 mg PO BIDDIUR 03/27/10 [Last Taken 06/05/18 08: 00] Gabapentin [Neurontin] 600 mg PO TID 03/27/10 [Last Taken 06/05/18 08:00] Levothyroxine [Synthroid 137 mcg (*)] 137 mcg PO DAILY06 03/27/10 [Last Taken ] Aspirin EC [Aspirin EC 325 mg (*)] 325 mg PO DAILY 05/14/17 [Last Taken 06/05/18 ] Bupropion HCl [Wellbutrin Xl] 300 mg PO DAILY 05/14/17 [Last Taken 06/05/18] Calcium Carbonate/Vitamin D3 [Oyster Shell Calcium-Vit D Tab] 1 tab PO DAILY 05/20 [Last Taken 05/13/17] Carvedilol [Coreg (*)] 25 mg PO BIDMEAL 05/14/17 [Last Taken 06/05/18 08:00] Herbals/Supplements -Info Only 1 ea PO DAILY 05/14/17 [Last Taken Unknown] Multivitamins [Multivitamin (*)] 1 each PO DAILY 05/14/17 [Last Taken 05/13/17] Pramipexole Di-HCl [Mirapex 1 mg (*)] 1 mg PO HS PRN 05/14/17 [Last Taken ] Sacubitril/Valsartan 24/26Mg [Entresto 24 mg/26 mg (RX)] 1 tab PO BID 05/14/17 [ Last Taken 06/05/18 08:00] Spironolactone [Aldactone 25 MG (*)] 25 mg PO DAILY 05/14/17 [Last Taken ] I have personally reviewed and updated: family history, medical history, social history, surgical history - Past Medical History cancer (breast cancer), CHF (systolic with EF of 30%), hypertension Additional medical history: diverticulitis. Graves disease and now hypothyroid. chronic venous stasis with chronic lower extremity wounds. obesity - Surgical History Reports: cancer surgery (bilateral mastectomy) - Family History Positive for: non-pertinent - Social History Smoking Status: Former smoker Alcohol Use: Occasionally Drug Use: None Additional social history: has 2 children, lives with her son Review of Systems Review of Systems: ROS: 10pt was reviewed & negative except for what was stated in HPI & below Physical Exam Physical Exam: Temp Pulse Resp BP Pulse Ox 36.6 C 86 14 142/78 H 97 06/05/18 20:09 06/05/18 20:09 06/05/18 20:09 06/05/18 20:09 06/05/18 20:09 O2 (L/minute) 3 Constitutional: not in pain, chronically ill appearing, obese Eyes: PERRL, anicteric sclera Ears, Nose, Mouth, Throat: moist mucous membranes, poor dentition Cardiovascular: regular rate and rhythym, systolic murmur, edema (weeping edema to mid thighs) Respiratory: reduced air movement, inspiratory crackles Gastrointestinal: normoactive bowel sounds, soft, non-tender abdomen Genitourinary: no bladder tenderness Skin: warm, other (bilateral lower extremities with erythema/edema weeping to thighs with associated skin breakdown) Musculoskeletal: no muscle tenderness Neurologic: AAOx3 Psychiatric: interacting appropriately, not anxious, not encephalopathic Lab Data & Imaging Review 06/05/18 16:32 06/05/18 16:32 WBC 10.82 10^3/uL (3.80-9.50) H 06/05/18 16:32 RBC 4.42 10^6/uL (4.18-5.33) 06/05/18 16:32 Hgb 14.3 g/dL (12.6-16.3) 06/05/18 16:32 Hct 43.6 % (38.0-47.0) 06/05/18 16:32 MCV 98.6 fL (81.5-99.8) 06/05/18 16:32 MCH 32.4 pg (27.9-34.1) 06/05/18 16:32 MCHC 32.8 g/dL (32.4-36.7) 06/05/18 16:32 RDW 15.0 % (11.5-15.2) 06/05/18 16:32 Plt Count 211 10^3/uL (150-400) 06/05/18 16:32 MPV 10.3 fL (8.7-11.7) 06/05/18 16:32 Neut % (Auto) 79.3 % (39.3-74.2) H 06/05/18 16:32 Lymph % (Auto) 7.7 % (15.0-45.0) L 06/05/18 16:32 [place] % (Auto) 6.7 % (4.5-13.0) 06/05/18 16:32 Eos % (Auto) 5.0 % (0.6-7.6) 06/05/18 16:32 Baso % (Auto) 0.6 % (0.3-1.7) 06/05/18 16:32 Nucleat RBC Rel Count 0.0 % (0.0-0.2) 06/05/18 16:32 Absolute Neuts (auto) 8.58 10^3/uL (1.70-6.50) H 06/05/18 16:32 Absolute Lymphs (auto) 0.83 10^3/uL (1.00-3.00) L 06/05/18 16:32 Absolute Monos (auto) 0.72 10^3/uL (0.30-0.80) 06/05/18 16:32 Absolute Eos (auto) 0.54 10^3/uL (0.03-0.40) H 06/05/18 16:32 Absolute Basos (auto) 0.07 10^3/uL (0.02-0.10) 06/05/18 16:32 Absolute Nucleated RBC 0.00 10^3/uL (0-0.01) 06/05/18 16:32 Immature Gran % 0.7 % (0.0-1.1) 06/05/18 16:32 Immature Gran # 0.08 10^3/uL (0.00-0.10) 06/05/18 16:32 PT 12.7 SEC (12.0-15.0) 06/05/18 16:32 INR 0.93 (0.83-1.16) 06/05/18 16:32 APTT 24.5 SEC (23.0-38.0) 06/05/18 16:32 Sodium 136 mEq/L (135-145) 06/05/18 16:32 Potassium 4.3 mEq/L (3.3-5.0) 06/05/18 16:32 Chloride 97 mEq/L (97-110) 06/05/18 16:32 Carbon Dioxide 32 mEq/l (22-31) H 06/05/18 16:32 Anion Gap 7 mEq/L (6-14) 06/05/18 16:32 BUN 21 mg/dL (7-23) 06/05/18 16:32 Creatinine 0.8 mg/dL (0.6-1.0) 06/05/18 16:32 Estimated GFR > 60 06/05/18 16:32 Glucose 141 mg/dL (70-100) H 06/05/18 16:32 Calcium 9.1 mg/dL (8.5-10.4) 06/05/18 16:32 POC Troponin I 0.02 ng/mL (0.00-0.08) 06/05/18 16:40 NT-Pro-B Natriuret Pep 402 pg/mL (0-450) 06/05/18 16:32 Visualized and Interpreted Chest x-ray results: Yes Chest X-Ray results: other (mild cardiomegaly and pulm vasc congestoin) Visualized and Interpreted EKG results: Yes EKG Interpretation: Positive for: left bundle branch block Assessment & Plan Assessment: CHF (congestive heart failure) (Acute) Shortness of breath (Acute) 77 yo F with hx of chronic systolic heart failure, jenna and med non compliance presenting with increased lower extremity edema c/w acute chf exacerbation # acute on chronic chf exacerbation: with most recent EF of 30% and presenting with severe bilateral lower extremity weeping edema and 25 pound weight gain as well as pulm vasc congestion. Cardiology has been consulted and recommends lasix gtt which will be initiated. Will place hair. Will wait several days and get echocardiogram at that time. Will trend trops and ecg overnight and get tsh. # weeping edema: in setting of above, does have erythema and open wounds, will ask wound care to consult # jenna/ohs: likely a contribution of worsening right heart failure contributing to above, echo, cpap at night # chronic hypoxic respiratory failure: appears to be at baseline currently, o2 requirement of 3L # hypothyroid: with prior hx of Graves and hypothyroid now s/p treatment, will get tsh, continue lt4 # IP status, will require > 48 hours stay for eval/mgmt of above FC--reviewed with patient and her son, daughter Aida would be MDPOA Patient new to my care. Old records reviewed and summarized as above. Care plan reviewed with ER doctor including plans for cardiology consult. Further hx obtained from patients son present at bedside.
[2018-06-05] MEDS: FUROSEMIDE 100 MG in D5W 100 ML IV SCH (21:38)
[2018-06-05] MEDS: PRAMIPEXOLE 1 MG TAB PO PRN (21:56)
[2018-06-05] MEDS: GABAPENTIN 300 MG CAP PO SCH (21:57)
[2018-06-05] MEDS: SACUBITRIL/VALSARTAN 24/26MG 1 EA TAB PO SCH (21:58)
[2018-06-05] MEDS: CARVEDILOL 25 MG TAB PO SCH (21:58)
[2018-06-06] MEDS: oxyCODONE IR 5 MG TAB PO PRN ×3 (00:45→23:45)
[2018-06-06 04:34] LABS: PLATELET COUNT 210 10^3/uL (150-400)
[2018-06-06] MEDS: LEVOTHYROXINE 137 MCG TAB PO SCH (07:08)
[2018-06-06] MEDS ORDERED: ALTEPLASE 2 MG VIAL IVP PRN (08:58)
[2018-06-06] MEDS ORDERED: FUROSEMIDE 40 MG/4 ML VIAL IVP SCH (09:00)
--- NOTE | 2018-06-06 09:51 | PDMN ---
Medical Necessity Medical necessity: MCG M190 Heart Failure, A-2 days: 77 yo presents w/ acute on chronic CHF exacerbation, recent EF 30%, severe BLE weeping korey, 25 lb weight gain, and pulm vasc congestion. IV Lasix started. Cont tele monitoring. Wound and cardiology consults ordered pending.IP status, will require > 48 hours stay for eval/mgmt of above. Hx breast ca, CHF, JENNA, HTN, diverticulitis, graves disease, obesity, chronic venous stasis w/ chronic LE wounds.
[2018-06-06] MEDS: GABAPENTIN 300 MG CAP PO SCH ×3 (10:13→20:18)
[2018-06-06] MEDS: SPIRONOLACTONE 25 MG TAB PO SCH (10:13)
[2018-06-06] MEDS: MULTIVITAMINS 1 EACH TAB PO SCH (10:14)
[2018-06-06] MEDS: CALCIUM CARB W/VIT D 500 MG TAB PO SCH (10:15)
[2018-06-06] MEDS: CARVEDILOL 25 MG TAB PO SCH ×2 (10:20→18:28)
[2018-06-06] MEDS: SACUBITRIL/VALSARTAN 24/26MG 1 EA TAB PO SCH ×2 (10:20→20:18)
[2018-06-06] MEDS: ENOXAPARIN 60 MG/0.6 ML SYR SC SCH ×2 (10:20→20:19)
[2018-06-06] MEDS: FUROSEMIDE 100 MG in D5W 100 ML IV SCH ×2 (11:58→23:01)
--- NOTE | 2018-06-06 12:11 | CPEKG ---
Test Reason : OPEN Blood Pressure : / mmHG Vent. Rate : 075 BPM Atrial Rate : 075 BPM P-R Int : 165 ms QRS Dur : 143 ms QT Int : 415 ms P-R-T Axes : 047 -35 105 degrees QTc Int : 464 ms Sinus rhythm Left bundle branch block Confirmed by Maulik Keen ([id number]) on 06/06/2018 12:11:09 PM Referred By: Confirmed By:Maulik Keen
--- NOTE | 2018-06-06 13:06 | PDCARPN ---
Cardiology Progress Note Chief Complaint: Swelling Assessment/Plan: Assessment: Christel is a 77 y/o F with a history of obesity, DM, and CMP with EF of 33% by echo in 01/2017 who presented to our office with REESE, edema, and greater then 20 pound weight gain. She also has weeping wounds on her lower extremities. She admits to being off of Entresto for 5 days and frequently missing her evening dose of Lasix. She was admitted yesterday and started on a Lasix drip. She is down 2KG in 12 hours. She has noted a small improvement in her SOB and edema in her hands. She is having asymptomatic NSVT on tele. This likely occurred in the setting of a PICC line. Plan: 1. acute on chronic systolic CHF- Continue Lasix drip, entresto, and Spironolactone. She is down 2 KG in 12 hours. She still has at least 20 pounds to go. 2. CMP- with EF of 33%- Cath 20 years ago was negative for CAD per patient. She has not had any recent ischemic work-up. She does not want a angiogram but I think this could be revisited in the future. Repeat echo in 3-4 days when she is closer to being euvolemic. 3. nonhealing ulcers- wound care consult 4. hyperkalemia- Monitor closely 5. LBBB- old. 6. NSVT- likely related to PICC placement. She did have some additional NSVT. Continue BB. d/c QTc prolonging agents. BMP with mag and echo ordered. 06/06/18 14:41 Subjective: SOB and edema in her hands has improved. She denies any CP or palpitations. Objective: Vital Signs (8 Hrs) Temp Pulse Resp BP Pulse Ox 06/06/18 12:00 37.3 C 78 22 H 104/75 97 06/06/18 07:35 37.0 C 82 22 H 131/65 H 96 Intake/Output (24 Hrs) 06/05/18 06/06/18 06/07/18 05:59 05:59 05:59 Intake Total 684 350 Output Total 1700 175 Balance -1016 175 Intake: Oral (ml) 600 350 IV Infused (ml) 84 Furosemide 100 mg In D5w 84 100 ml @ As Directed IV CONT VANDA Rx#:[id number] Output: Urine (ml) 1700 175 Bedside Commode 500 175 Incontinence 400 Toilet 800 Other: Weight 121.4 kg 119.2 kg Output Comment Incontinence female catheter Number of Voids Incontinence 1 1 Result Diagrams: 06/06/18 04:00 06/06/18 04:00 Cardiac Labs: Cardiac Lab Results (72 Hrs) 06/06/18 06/05/18 04:00 21:56 Troponin I 0.017 0.017 Telemetry: NSVT - Physical Exam Constitutional: obese Cardiovascular: regular rate and rhythm, no murmurs, no rubs Respiratory: other (decreased BS at the bases) Skin: other (severe edema bilaterally) Neurologic: AAOx3 ICD10 Worksheet Patient Problems: Problems Problem Status Onset CHF (congestive heart failure) Acute Shortness of breath Acute Diverticulitis large intestine w/o perforation or abscess w/o bleeding Acute
--- NOTE | 2018-06-06 14:29 | ASMTCMCOM ---
CM Note CM Note Notes: Spoke with pt and daughter in the room. Also discussed in rounds. Pt lives with son, and is planning to move in with daughter later in the month. Pt admitted for SOB, CHF exacerbation, edema and weepy legs. PT recommending HHC or SNF. Pt has used [facility] in the past and would like to work with them again. Pt informed that if she later decides to go to SNF to contact CM. Pt comfortable with HHC. Referral sent to [facility]. CM to follow. D/C Plan: [facility] Home PT/OT/RN Date Signed: 06/06/2018 02:28 PM Electronically Signed By:Rae Choudhary
[2018-06-06] MEDS ORDERED: PERFLUTREN LIPID MICROSPHERES 1.1 MG/ML VIAL IV ONE (15:15)
[2018-06-06] MEDS: ASPIRIN EC 325 MG TAB PO SCH (15:49)
[2018-06-06] MEDS: buPROPion XL 150 MG TAB PO SCH (15:49)
--- NOTE | 2018-06-06 16:26 | ASMTCMCOM ---
CM Note CM Note Notes: ADDENDUM: [facility] unable to accept pt as their WC RN will be out of town. [facility] has accepted. Pt informed. D/C Plan: Home with [facility] WC RN and PT Date Signed: 06/06/2018 04:26 PM Electronically Signed By:Rae Choudhary
--- NOTE | 2018-06-06 16:47 | ECHO ---
[email or web address] [address] [address] Main: [phone] Fax: Transthoracic Echocardiogram Name: KI ARIZA MR#: [id number] Study Date: 06/06/2018 Study Time: 02:30 PM Date of : 1940 Age: 77 year(s) Height: 154.9 cm (61 in.) Weight: 118.84 kg (262 lb.) BSA: 2.12 m2 Gender: Female Examination: Echo with Definity Indication: VT/CMP/CHF Image Quality: Technically Difficult Contrast: 0.250 mg I.V. dose of Definity was administered to improve endocardial border definition. Requested by: Ness Aponte BP: 107 mmHg/45 mmHg Heart Rate: Rhythm: Indication: VT/CMP/CHF Procedure Staff Cleaning Specialist: Sherine Tucker [facility] Reading Physician: Ronnie Hoyt MD Requesting Provider: Conclusions: Moderately dilated left ventricle. No LV hypertrophy. Moderately to severely reduced systolic function. EF is 33 %. Global hypokinesis with septal and apical dyskinesis Unable to assess diastolic dysfunction. No thrombus in left ventricle. Normal size right ventricle. Normal RV function. The left atrium is normal in size. The right atrium is normal in size. There is mild thickening of the mitral valve leaflets. No mitral stenosis is present. Moderate mitral valve regurgitation is present. Aortic valve is not well visualized. There is no aortic valve regurgitation. No aortic valve stenosis is present. The tricuspid valve is normal in appearance and function. Mild to moderate tricuspid valve regurgitation. The pulmonary artery pressure is mild to moderately increased. Pulmonary valve not well visualized. Normal size aortic root measuring 2.6 cm. The IVC is not well visualized. No pericardial effusion. Compared to a prior study dated 01/03/2017 there is no significant change. Measurements: Patient: KI ARIZA Study Date: 06/06/2018 Page 1 of 2 02:30 PM Chambers Valvular Assessment AV/MV Valvular Assessment TV/PV Normal Normal Normal Name Value Range Name Value Range Name Value Range Ao Mary Jane (MM): 2.6 cm (2.2 cm-3.7 AV Vmax: 1.81 m/s (1 m/s-1.7 TR Vmax: 3.12 mm/s ( - ) cm) m/s) TR PGmax: 39 mmHg ( - ) IVSd (2D): 0.7 cm (0.6 cm-1.1 AV maxP mmHg ( - ) syst. PAP: 44 mmHg ( - ) cm) LVOT Vmax: 1.08 m/s (0.7 m/s-1.1 PV Vmax: 1.68 m/s (0.6 m/s-0.9 LVDd (2D): 5.9 cm (3.9 cm-5.3 m/s) m/s) cm) [place] (Vmax): 1.7 cm2 ( - ) PV PGmax: 11 mmHg ( - ) LVDs (2D): 5.3 cm (2.1 cm-4 MV E Vmax: 0.91 m/s ( - ) cm) MV A Vmax: 1.18 m/s ( - ) LVPWd (2D): 1.0 cm ( - ) MV E/A: 0.77 ( - ) LVOTd 1.9 cm 1.9 cm mm LVEF (BP): 33 % (>=55 %) RVDd(2D): 3.0 cm (1.9 cm-3.8 cmmm) Continued Measurements: Chambers Valvular Assessment AV/MV Valvular Assessment TV/PV Name Value Name Value Name Value LADs Lon.4 cm MV DecTime: 148 m/s CVP (est.): 5 mmHg LA Area: 20.8 cm2 Findings: Left Ventricle: Moderately dilated left ventricle. No LV hypertrophy. Moderately to severely reduced systolic function. EF is 33 %. Global hypokinesis with septal and apical dyskinesis Unable to assess diastolic dysfunction. No thrombus in left ventricle. Right Ventricle: Normal size right ventricle. Normal RV function. Left Atrium: The left atrium is normal in size. Right Atrium: The right atrium is normal in size. Mitral Valve: There is mild thickening of the mitral valve leaflets. No mitral stenosis is present. Moderate mitral valve regurgitation is present. Aortic Valve: Aortic valve is not well visualized. There is no aortic valve regurgitation. No aortic valve stenosis is present. Tricuspid Valve: The tricuspid valve is normal in appearance and function. Mild to moderate tricuspid valve regurgitation. Right ventricular systolic pressure measures 44mmHg. The pulmonary artery pressure is mild to moderately increased. Pulmonic Valve: Pulmonary valve not well visualized. Aorta: Normal size aortic root measuring 2.6 cm. IVC: The IVC is not well visualized. Pericardium: No pericardial effusion. (No Signature Object) Patient: KI ARIZA Study Date: 06/06/2018 Page 2 of 2 02:30 PM [id number]
--- NOTE | 2018-06-06 18:02 | HOSPPROG ---
Hospitalist Progress Note Assessment/Plan: 77yo F with hx of chronic systolic heart failure, jenna and med non compliance presenting with increased lower extremity edema c/w acute chf exacerbation. This is my first encounter with the patient, chart reviewed. 1. Acute on chronic systolic CHF: Still largely volume overloaded - Continue lasix gtt, goal net neg 1-2L/day, monitor I/Os and weight - Continue coreg, entresto, dorothy - Hold on hair placement. If unable to get accurate I/Os tomorrow, will place - TTE done today, pending read - Cardiology following, case discussed w/Ness Aponte 2. KANDACE: Cr up a touch this PM - Likely r/t meds (entresto, dorothy) as she had been out of these and were restarted - If worse in AM, will hold above and renally dose meds (gabapentin) 3. BLE weeping wounds: C/w massive fluid overload, low concern for cellulitis - Wound care, diuresis 4. JENNA/OHS: Compliant with CPAP 5. Chronic hypoxemic resp insufficiency: Requires 2L 6. Hypothyroidism: TSH ok, continue home LT4 VTE ppx: LMWH Code: full Dispo: Remain inpatient for IV diuresis Subjective: Legs continue to weep fluid. No change in breathing. Overall feels ok. Per RN, IV fell out this AM. Unable to place peripheral so PICC placed. Had some NSVT during placement that resolved. Objective: Vital Signs Temp Pulse Resp BP Pulse Ox 36.8 C 81 14 124/67 H 96 06/06/18 16:00 06/06/18 16:00 06/06/18 16:00 06/06/18 16:00 06/06/18 16:00 Laboratory Results 06/06/18 04:00 06/06/18 14:30 06/05/18 06/06/18 06/07/18 05:59 05:59 05:59 Intake Total 684 700 Output Total 1700 1125 Balance -1016 -425 PT 12.7 SEC (12.0-15.0) 06/05/18 16:32 INR 0.93 (0.83-1.16) 06/05/18 16:32 - Physical Exam Constitutional: no apparent distress, obese Eyes: PERRL, anicteric sclera, EOMI Ears, Nose, Mouth, Throat: moist mucous membranes, hearing normal, ears appear normal, no oral mucosal ulcers Cardiovascular: regular rate and rhythym, systolic murmur, edema Respiratory: no respiratory distress, reduced air movement Gastrointestinal: normoactive bowel sounds, soft, non-tender abdomen, no palpable masses Genitourinary: no bladder fullness, no bladder tenderness, no renal bruits Skin: other (chronic venous stasis changes in BLE with evidence of acutely worsened edema and weeping wounds) Musculoskeletal: full muscle strength, no muscle tenderness, normal joint ROM Neurologic: AAOx3, sensation intact bilaterally Psychiatric: interacting appropriately ICD10 Worksheet Patient Problems: Problems Problem Status Onset CHF (congestive heart failure) Acute Shortness of breath Acute Diverticulitis large intestine w/o perforation or abscess w/o bleeding Acute
[2018-06-06] MEDS: PRAMIPEXOLE 1 MG TAB PO PRN (20:25)
[2018-06-07] MEDS: LEVOTHYROXINE 137 MCG TAB PO SCH (05:20)
[2018-06-07] MEDS: CARVEDILOL 25 MG TAB PO SCH ×2 (09:42→19:12)
[2018-06-07] MEDS: GABAPENTIN 300 MG CAP PO SCH ×3 (09:46→22:04)
[2018-06-07] MEDS: CALCIUM CARB W/VIT D 500 MG TAB PO SCH (09:47)
[2018-06-07] MEDS: buPROPion XL 150 MG TAB PO SCH (09:47)
[2018-06-07] MEDS: ASPIRIN EC 325 MG TAB PO SCH (09:48)
[2018-06-07] MEDS: MULTIVITAMINS 1 EACH TAB PO SCH (09:48)
[2018-06-07] MEDS: ENOXAPARIN 40 MG/0.4 ML SYR SC SCH ×2 (09:52→22:04)
[2018-06-07] MEDS: acetaZOLAMIDE 250 MG TAB PO SCH ×2 (10:39→22:05)
--- NOTE | 2018-06-07 11:01 | SOAPPROG ---
SOAP Progress Note Assessment/Plan: Assessment: 77 y/o woman with acute on chronic systolic CHF with LVEF 33%, chronic LBBB, moderate MR and DM. She is slowly diuresis. Clinically with some more volume to take off. Had asymptomatic NSVT on tele. PLAN: 1)add Diamox 500mg PO BID 2)rest of meds without changes. 3)daily BMP to follow renal function closely 4)L/R cardiac cath preferably thru upper extremity either Tuesday or Tuesday 5)EP-Nancy consult to consider placement of BIVAICD this hospitalization. 06/07/18 10:58 Subjective: feels less bloated and short of breath. Denies CP, palpitations, cough or near syncope or PND. Objective: Vital Signs Temp Pulse Resp BP Pulse Ox 36.9 C 81 15 120/59 L 93 06/07/18 07:26 06/07/18 09:42 06/07/18 07:26 06/07/18 09:42 06/07/18 07:26 Laboratory Results 06/07/18 03:13 06/07/18 03:13 06/06/18 06/07/18 06/08/18 05:59 05:59 05:59 Intake Total 684 1100 130 Output Total 1700 2025 Balance -1016 -925 130 PT 12.7 SEC (12.0-15.0) 06/05/18 16:32 INR 0.93 (0.83-1.16) 06/05/18 16:32 Physical Exam - Physical Exam General Appearance: alert, obese EENT: PERRL/EOMI Neck: non-tender Respiratory: lungs clear Cardiac/Chest: regular rate, rhythm, edema (2/6 LUCERO heard), JVD, systolic murmur , No gallop Peripheral Pulses: 1+: femoral (R), femoral (L), dorsalis-pedis (R), dorsalis- pedis (L), 2+: carotid (R), carotid (L) Abdomen: non-tender, soft, No guarding, No ascites Skin: warm/dry Extremities: pedal edema Neuro/Psych: alert ICD10 Worksheet Patient Problems: Problems Problem Status Onset CHF (congestive heart failure) Acute Shortness of breath Acute Diverticulitis large intestine w/o perforation or abscess w/o bleeding Acute
[2018-06-07] MEDS: FUROSEMIDE 100 MG in D5W 100 ML IV SCH ×2 (12:58→23:21)
--- NOTE | 2018-06-07 13:05 | PDCARPN ---
Cardiology Progress Note Chief Complaint: Acute on chronic CHF Chronic LBBB NSVT Assessment/Plan: Assessment: 1. Acute on chronic systolic heart failure: LVEF 33% with moderate MR and mild to moderate TR (stable compared to prior echo in 2017). She has been diuresing well, followed by Dr. Okeefe 2. NSVT: several brief episodes of NSVT noted on telemetry, differing morphologies between episodes, longest roughly 17 beats. These have been asymptomatic. No history of syncope, pre-syncope, or palpitations 3. BLE skin breakdown: Progressive x10 days. Seen by wound care this morning. Plan: 1. Encouraged patient and daughter to consider coronary angiography to be performed this hospitalization. 2. Infectious disease consult to evaluate BLE skin breakdown and risk for infection with pending BiV PPM/AICD implant 3. Alternatives for management of NSVT discussed in detail with patient and her daughter, including watchful waiting, and risks/benefits of biventricular pacing +/- AICD. They will discuss these options as a family and will likely decide to proceed with implant of BiV AICD. Tentative date planned for next Thursday 06/[address] Cruz, but timing will be dependent upon patient preference and ID consult 06/07/18 12:54 Subjective: Ms. Walker is feeling much better compared to Tuesday, when she was admitted. Reviewed/Discussed With: multidisciplinary team Time Spent with Patient: greater than 25 minutes Time Spent with Patient: Greater than 25 minutes spent on this patients care, greater than 50% of time spent counseling, educating, and coordinating care regarding the above mentioned plan. Objective: Vital Signs (8 Hrs) Temp Pulse Resp BP Pulse Ox 06/07/18 09:42 81 120/59 L 06/07/18 07:26 36.9 C 76 15 94/49 L 93 Intake/Output (24 Hrs) 06/06/18 06/07/18 06/08/18 05:59 05:59 05:59 Intake Total 684 1100 130 Output Total 1699 2024 Balance -1016 -925 130 Intake: Oral (ml) 600 1100 IV Infused (ml) 84 130 Furosemide 100 mg In D5w 84 130 100 ml @ As Directed IV CONT VANDA Rx#:[id number] Output: Urine (ml) 1699 2024 Bedside Commode 500 325 Catheter 1550 Incontinence 400 Toilet 800 150 Other: Weight 121.4 kg 118.9 kg Output Comment Incontinence female catheter Number of Voids Incontinence 1 1 Result Diagrams: 06/07/18 03:13 06/07/18 03:13 Cardiac Labs: Cardiac Lab Results (72 Hrs) 06/06/18 06/05/18 04:00 21:56 Troponin I 0.017 0.017 - Physical Exam Constitutional: no apparent distress, obese Ears, Nose, Mouth, Throat: moist mucous membranes, no oral ulcers, no thrush Cardiovascular: regular rate and rhythm, systolic murmur, other (edema) Respiratory: clear to auscultate bilat, no crackles, no wheezes Gastrointestinal: normoactive bowel sounds, no tenderness, no masses Genitourinary: no suprapubic tenderness, no CVAT Neurologic: AAOx3, CN II-XII grossly intact Psychiatric: cooperative, interactive, following commands, not anxious ICD10 Worksheet Patient Problems: Problems Problem Status Onset CHF (congestive heart failure) Acute Shortness of breath Acute Diverticulitis large intestine w/o perforation or abscess w/o bleeding Acute
--- NOTE | 2018-06-07 15:08 | WOCRNPDOC ---
WOCRN Advanced Assessment Note - Skin Integrity Problem, Advanced Assess Right Lower Leg Unknown Dressing Type: Adaptic Touch, Kerlix Dressing Description: Shadowed Exudate Amount: Excessive Exudate Color: Yellow Exudate Characteristic(s): Serous Integumentary Issue Intervention: Dressing Changed Devorah Wound Tissue: Erythema, Swollen, Weeping, Painful/Tender Devorah Wound Swelling: Moderate Wound Bed Color: Amberley, Red Wound Bed Constitution: Red/Amberley - Non Granular Tissue Skin Integrity Problem Comment: Discussed patient plan of care with RN Dickson. Patient has open weeping wounds to bilateral lower extremities. Wound bed cleaned with normal saline. Patient's daughter in room for care. Patient reports neuropathic pain, especially to right leg. Wound care will round again next week. Left Lower Leg Unknown Dressing Type: Adaptic Touch, Kerlix Dressing Description: Shadowed Exudate Amount: Excessive Exudate Color: Yellow Exudate Characteristic(s): Serous Integumentary Issue Intervention: Dressing Changed Devorah Wound Tissue: Erythema, Swollen, Weeping, Painful/Tender Devorah Wound Swelling: Moderate Wound Bed Color: Amberley, Red Wound Bed Constitution: Red/Amberley - Non Granular Tissue Site Measurement - Head-to-Toe Length X Width X Depth (cm): Overall area approximately 15x9, with several small openings Skin Integrity Problem Comment: Wound beds cleaned with normal saline and gauze. Discussed patient plan of care with patient and daughter. Wound care will round again next week.
--- NOTE | 2018-06-07 15:35 | HOSPPROG ---
Hospitalist Progress Note Assessment/Plan: 77yo F with hx of chronic systolic heart failure, sera and med non compliance presenting with increased lower extremity edema c/w acute chf exacerbation. 1. Acute on chronic systolic CHF: Still largely volume overloaded - Continue lasix gtt, goal net neg 1-2L/day, monitor I/Os and weight - Continue coreg, entresto, dorothy - Cardiology adding acetazolamide today - TTE with stable LV function from prior, repeat once more euvolemic - Cardiology following, case discussed w/Dr Okeefe - Plan for RHC/LHC once more euvolemic and able to lie flat - Candidate for BiV pacing (see below) - Consider palliative consultation this admission 2. KANDACE: Cr rising, likely hemodynamic from diuresis - Check urine studies - Decrease gabapentin from TID to BID 3. NSVT: 17 beat run on tele overnight, asymptomatic - EP (Dr Cruz) consulted, recommending BiV pacer/AICD placement 4. BLE weeping wounds: C/w massive fluid overload. Still low concern for cellulitis - Wound care, diuresis, hold on antibiotics - EP recommending ID consultation, order placed 5. SERA/OHS: Compliant with CPAP 6. Chronic hypoxemic resp insufficiency: Requires 2L 7. Hypothyroidism: TSH ok, continue home LT4 VTE ppx: LMWH Code: full Dispo: Remain inpatient for IV diuresis Subjective: Feeling a bit better. Noticed slight improvement in leg edema. No fevers. Legs still weeping quite a bit. No chest pain. Not able to lie flat. Objective: Vital Signs Temp Pulse Resp BP Pulse Ox 36.6 C 80 16 101/61 97 06/07/18 13:03 06/07/18 13:03 06/07/18 13:03 06/07/18 13:03 06/07/18 13:03 Laboratory Results 06/07/18 03:13 06/07/18 03:13 06/06/18 06/07/18 06/08/18 05:59 05:59 05:59 Intake Total 684 1100 130 Output Total 1700 2024 Balance -1016 -925 130 PT 12.7 SEC (12.0-15.0) 06/05/18 16:32 INR 0.93 (0.83-1.16) 06/05/18 16:32 - Physical Exam Constitutional: no apparent distress, appears nourished, not in pain, obese Eyes: PERRL, anicteric sclera, EOMI Ears, Nose, Mouth, Throat: moist mucous membranes, hearing normal, ears appear normal, no oral mucosal ulcers Cardiovascular: regular rate and rhythym, no murmur, rub, or gallop, edema (3+ BLE with weeping edema) Respiratory: no respiratory distress, reduced air movement (bilateral bases) Gastrointestinal: normoactive bowel sounds, soft, non-tender abdomen, no palpable masses Genitourinary: no bladder fullness, no bladder tenderness, no renal bruits Skin: other (stable appearance of legs, chronic venous stasis wiht some increased redness due to skin breakdown and weeping but no warmth or spreading or redness) Musculoskeletal: full muscle strength, no muscle tenderness, normal joint ROM Neurologic: AAOx3, sensation intact bilaterally Psychiatric: interacting appropriately, not anxious, not encephalopathic, thought process linear ICD10 Worksheet Patient Problems: Problems Problem Status Onset CHF (congestive heart failure) Acute Shortness of breath Acute Diverticulitis large intestine w/o perforation or abscess w/o bleeding Acute
[2018-06-07] MEDS: SACUBITRIL/VALSARTAN 24/26MG 1 EA TAB PO SCH (22:04)
[2018-06-08] MEDS: LEVOTHYROXINE 137 MCG TAB PO SCH (04:51)
[2018-06-08] MEDS: buPROPion XL 150 MG TAB PO SCH (08:28)
[2018-06-08] MEDS: MULTIVITAMINS 1 EACH TAB PO SCH (08:29)
[2018-06-08] MEDS: ASPIRIN EC 325 MG TAB PO SCH (08:30)
[2018-06-08] MEDS: acetaZOLAMIDE 250 MG TAB PO SCH ×2 (08:30→22:49)
[2018-06-08] MEDS: CALCIUM CARB W/VIT D 500 MG TAB PO SCH (08:31)
[2018-06-08] MEDS: SACUBITRIL/VALSARTAN 24/26MG 1 EA TAB PO SCH ×2 (08:32→22:49)
[2018-06-08] MEDS: SPIRONOLACTONE 25 MG TAB PO SCH (08:38)
[2018-06-08] MEDS: CARVEDILOL 25 MG TAB PO SCH ×2 (08:38→17:17)
[2018-06-08] MEDS: GABAPENTIN 300 MG CAP PO SCH ×2 (08:39→22:49)
[2018-06-08] MEDS: ENOXAPARIN 40 MG/0.4 ML SYR SC SCH ×2 (08:42→22:49)
--- NOTE | 2018-06-08 11:41 | SOAPPROG ---
SOAP Progress Note Assessment/Plan: Assessment: 77 y/o woman with acute on chronic systolic CHF with LVEF 33%, chronic LBBB, moderate MR and DM. She has diuresed 12lbs from admission and appears near euvolemic. PLAN: 1)stop Lasix gtt tonight 2)hold Lovenox Tuesday AM 3)L/R cardiac cath tomorrow with possible PCI. R/B/A discussed with patient and she agrees. 4)probable BIVAICD next week. 06/08/18 11:38 Subjective: feels less bloated and edematous. Denies CP, palpitations or near syncope. She is tired. REESE at 50ft. Objective: Vital Signs Temp Pulse Resp BP Pulse Ox 36.7 C 74 19 105/60 94 06/08/18 07:26 06/08/18 07:26 06/08/18 07:26 06/08/18 07:26 06/08/18 07:26 Laboratory Results 06/07/18 03:13 06/08/18 04:51 06/07/18 06/08/18 06/09/18 05:59 05:59 05:59 Intake Total 1100 1798 318 Output Total 2024 4110 175 Balance -925 -2312 143 PT 12.7 SEC (12.0-15.0) 06/05/18 16:32 INR 0.93 (0.83-1.16) 06/05/18 16:32 Physical Exam - Physical Exam General Appearance: alert, obese EENT: normal ENT inspection Neck: non-tender Respiratory: lungs clear Cardiac/Chest: regular rate, rhythm, systolic murmur, No gallop, No JVD Peripheral Pulses: 1+: femoral (R), femoral (L), dorsalis-pedis (R), dorsalis- pedis (L), 2+: carotid (R), carotid (L) Abdomen: non-tender, No guarding, No rebound, No ascites Rectal: No deferred Extremities: pedal edema (1+ bilateral edema to knees.) ICD10 Worksheet Patient Problems: Problems Problem Status Onset CHF (congestive heart failure) Acute Shortness of breath Acute Diverticulitis large intestine w/o perforation or abscess w/o bleeding Acute
[2018-06-08] MEDS ORDERED: TEMAZEPAM 15 MG CAP PO PRN (11:42)
[2018-06-08] MEDS ORDERED: ACETAMINOPHEN 325 MG TAB PO PRN (11:42)
[2018-06-08] MEDS ORDERED: NITROGLYCERIN 0.4 MG BTL SL PRN (11:42)
[2018-06-08] MEDS: FUROSEMIDE 100 MG in D5W 100 ML IV SCH (12:00)
--- NOTE | 2018-06-08 12:17 | ASMTCMCOM ---
CM Note CM Note Notes: 06/08/2018 Case Management Note Discussed pt during rounds this morning. Pt to have heart cath on Tuesday with probable BIVAICD placement next week or Tuesday. Anticipating d/c towards later part of next week. Case Management d/c poc: [facility] RN PT Case Management to follow. Date Signed: 06/08/2018 12:16 PM Electronically Signed By:Gosia Xiong RN
--- NOTE | 2018-06-08 14:02 | HOSPPROG ---
Hospitalist Progress Note Assessment/Plan: 77yo F with hx of chronic systolic heart failure, sera and med non compliance presenting with increased lower extremity edema c/w acute chf exacerbation. 1. Acute on chronic systolic CHF: Volume status improving - Weight down 5kg in 2 days - Continue lasix gtt with plan to stop this evening, continue diamox - Continue coreg, entresto, dorothy - TTE with stable LV function from prior, repeat once more euvolemic - Plan for RHC/LHC tomorrow - Candidate for BiV pacing (see below) - Consider palliative consultation this admission 2. KANDACE: Cr stable, likely hemodynamic from diuresis - Monitor daily - Decrease gabapentin from TID to BID 3. NSVT: 17 beat run on tele 06/07, asymptomatic - EP (Dr Cruz) consulted, recommending BiV pacer/AICD placement. Possibly mid next week 4. BLE weeping edema: C/w massive fluid overload. Still low concern for cellulitis - Wound care, diuresis, hold on antibiotics - EP recommending ID consultation, order placed 5. SERA/OHS: Compliant with CPAP 6. Chronic hypoxemic resp insufficiency: Requires 2L 7. Hypothyroidism: TSH ok, continue home LT4 VTE ppx: LMWH, hold in AM in anticipation of cath Code: full Dispo: Remain inpatient for IV diuresis, procedures. Anticipated date of discharge unclear at this time Subjective: In good spirits. Slept ok. Able to lie flat last night. No chest pain. Thinks leg swelling is getting better. Peeing a lot. Case discussed with cardiology Objective: Vital Signs Temp Pulse Resp BP Pulse Ox 36.8 C 72 18 85/48 L 93 06/08/18 12:00 06/08/18 12:00 06/08/18 12:00 06/08/18 12:00 06/08/18 12:00 Laboratory Results 06/07/18 03:13 06/08/18 04:51 06/07/18 06/08/18 06/09/18 05:59 05:59 05:59 Intake Total 1100 1798 318 Output Total 2024 4110 175 Balance -925 -2312 143 PT 12.7 SEC (12.0-15.0) 06/05/18 16:32 INR 0.93 (0.83-1.16) 06/05/18 16:32 - Physical Exam Constitutional: no apparent distress, appears nourished, not in pain, obese Eyes: PERRL, anicteric sclera, EOMI Ears, Nose, Mouth, Throat: moist mucous membranes, hearing normal, ears appear normal, no oral mucosal ulcers Cardiovascular: regular rate and rhythym, no murmur, rub, or gallop, edema (3+ but improving) Respiratory: no respiratory distress, reduced air movement, No expiratory wheeze Gastrointestinal: normoactive bowel sounds, soft, non-tender abdomen, no palpable masses Genitourinary: no bladder fullness, no bladder tenderness, no renal bruits Skin: other (chronic venous stasis changes in BLE with weeping edema) Musculoskeletal: full muscle strength, no muscle tenderness, normal joint ROM Neurologic: AAOx3, sensation intact bilaterally Psychiatric: interacting appropriately, not anxious, not encephalopathic, thought process linear ICD10 Worksheet Patient Problems: Problems Problem Status Onset CHF (congestive heart failure) Acute Shortness of breath Acute Diverticulitis large intestine w/o perforation or abscess w/o bleeding Acute
[2018-06-08] MEDS: PRAMIPEXOLE 1 MG TAB PO PRN (17:13)
[2018-06-09] MEDS: oxyCODONE IR 5 MG TAB PO PRN (00:48)
[2018-06-09] MEDS: NYSTATIN POWDER 15 GM BTL TP SCH ×3 (00:48→23:32)
[2018-06-09] MEDS ORDERED: FAMOTIDINE 20 MG TAB PO ONE (06:00)
[2018-06-09] MEDS ORDERED: NS 1,000 ML IV ONE ×2 (06:00→10:43)
[2018-06-09] MEDS ORDERED: diphenhydrAMINE 25 MG CAP PO ONE (06:00)
[2018-06-09] MEDS ORDERED: ASPIRIN EC 325 MG TAB PO ONE (06:00)
[2018-06-09] MEDS ORDERED: DIAZEPAM 5 MG TAB PO ONE (06:00)
--- NOTE | 2018-06-09 06:14 | GCON ---
INFECTIOUS DISEASES CONSULTATION DATE OF CONSULTATION: 06/08/2018 REFERRING PHYSICIAN: Marco A Wright NP REASON FOR CONSULTATION: Bilateral lower extremity skin breakdown with need for pacemaker placement. HISTORY OF PRESENT ILLNESS: The patient is a 77-year-old obese female with a past medical history of lower extremity edema, who I am asked to see in consultation for bilateral lower extremity erythema and skin breakdown with need for pacemaker placement. The patient describes developing increasing sw elling over both lower extremities over the last 2 weeks. This was associated with an approximate 30 pound weight gain over the last month. She notes that her leg subsequently developed redness and be cari weeping clear fluid. She has not had similar symptoms in the past, although did have recommendat ions for compression socks in the past. The patient does not note any fever or shaking chills. The patient has needs for pacemaker placement based on presence of asymptomatic episodes of nonsustained ventricular tachycardia. Given the presence of lower extremity erythema with skin breakdown, concern s were raised about infectious risk posed by her legs at the time of pacemaker implantation. The pat ient also notes that she has had erythema and tenderness underneath her inguinal folds underneath her abdominal pannus. She also notes a small area of similar irritation in the right axillary region. The patient has not had fever during her hospital stay. She has had mild leukocytosis with a white c ount in the 10,000 range. She notes that she does elevate her lower extremities intermittently. 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 No history of MRSA that she is a stover of. Given the above findings, I am now asked to assist in her ongoing management. PAST MEDICAL HISTORY: Hypothyroidism, post Graves disease, breast cancer, congestive heart failure, hypertension, chronic venous insufficiency, obesity, obstructive sleep apnea. PAST SURGICAL HISTORY: Bilateral mastectomy. CURRENT MEDICATIONS: Diamox 500 mg p.o. b.i.d., aspirin 325 mg p.o. daily, Wellbutrin 300 mg p.o. da rudy, calcium with vitamin D 500 mg p.o. daily, Coreg 25 mg p.o. b.i.d., Lovenox 40 mg subcutaneous b. i.d., Pepcid 20 mg p.o. x1, Neurontin 600 mg p.o. b.i.d., Synthroid 137 mcg p.o. daily, multivitamin p.o. daily, Entresto 1 orally twice daily, Aldactone 25 mg p.o. daily (Lasix drip discontinued earlie r today). ALLERGIES: No known drug allergies. The patient notes diarrhea with clavulanic acid which is an int olerance. SOCIAL HISTORY: Patient is a former smoker. Uses alcohol occasionally. No drug use. FAMILY HISTORY: Coronary artery disease. REVIEW OF SYSTEMS: Outside that noted in the HPI, remainder of 10-system review is unremarkable. PHYSICAL EXAMINATION: VITAL SIGNS: Temperature 36.4, heart rate 77, respiratory rate 18, blood pres sure 100/63, oxygen saturation 97% on 2 L. GENERAL: Patient is morbidly obese, in no acute distress . She appears nontoxic. HEENT: There is no scleral icterus, conjunctival injection, or conjunctiva l petechiae. Oropharynx shows moist mucous membranes. No sinus tenderness. No nasal discharge. NE CK: Supple without palpable lymphadenopathy or thyromegaly. CHEST: Clear to auscultation bilateral ly without adventitious sounds. Respiratory effort is normal. CARDIOVASCULAR: Regular rate and rhy thm without murmurs, gallops, or rubs. ABDOMEN: Obese, nontender, nondistended. Organomegaly is di fficult to assess for, based on body habitus. MUSCULOSKELETAL: There is 2+ lower extremity edema bi laterally. There is bilateral circumferential erythema over the arenas, below the knee to above the fo ot with the findings being more prominent on the right than the left. Superficial ulcerations are sc attered through the area of erythema without significant drainage. Some lichenification is present o rosy the left anterior arenas. There is no active cellulitis. Edema is also present in the thigh regio n. SKIN: See musculoskeletal exam. There is intertrigo present in both inguinal folds underneath h er abdominal pannus. There is minimal intertrigo in the right axillary region. NEUROLOGIC: Patient is alert and interacts appropriately with the examiner. Cranial nerves 2-12 are grossly intact. Se nsation is grossly intact. Muscle tone and bulk are normal. LYMPHATICS: No cervical or supraclavic ular nodes. LABORATORY DATA: White blood cell count 10.5, hematocrit 39.2, platelets 222. Creatinine 1.3. IMPRESSION: 1. Bilateral lower extremity erythema: Clinical findings are consistent with venous stasis dermatit is and insufficiency. There are numerous small ulcerations which have been draining serous fluid. T here are no clinical findings of active cellulitis present currently. This finding should not signif icantly increase her risk of perioperative infection around pacemaker placement. She has described t o me that the plans are for her to have radial artery access rather than inguinal access at time of p acemaker placement, which would be more problematic given presence of intertrigo. 2. Intertrigo: Clinical findings in the inguinal regions consistent with intertrigo. We will begin nystatin powder and use of InterDry sheets. RECOMMENDATIONS: 1. Agree with continued observation off antibiotics. 2. Elevate bilateral lower extremities. 3. Nystatin powder and InterDry sheets to inguinal region. 4. No infectious disease opposition to proceeding with pacemaker based on clinical appearance of leg s being consistent with venous insufficiency and stasis dermatitis rather than active cellulitis. Thank you for this consultation. We will continue to follow the patient with you. /[id number]/MODL
[2018-06-09 06:16] LABS: PLATELET COUNT 186 10^3/uL (150-400)
[2018-06-09 06:31] LABS: INR 1.07 (0.83-1.16); PROTIME(PATIENT) 14.1 SEC (12.0-15.0)
[2018-06-09] MEDS: buPROPion XL 150 MG TAB PO SCH (08:33)
[2018-06-09] MEDS: SACUBITRIL/VALSARTAN 24/26MG 1 EA TAB PO SCH ×2 (08:33→23:31)
[2018-06-09] MEDS: acetaZOLAMIDE 250 MG TAB PO SCH ×2 (08:34→23:31)
[2018-06-09] MEDS: CALCIUM CARB W/VIT D 500 MG TAB PO SCH (08:35)
[2018-06-09] MEDS: GABAPENTIN 300 MG CAP PO SCH ×2 (08:35→23:31)
[2018-06-09] MEDS: SPIRONOLACTONE 25 MG TAB PO SCH (08:36)
[2018-06-09] MEDS: ASPIRIN EC 325 MG TAB PO SCH (08:36)
[2018-06-09] MEDS: MULTIVITAMINS 1 EACH TAB PO SCH (08:36)
[2018-06-09] MEDS: CARVEDILOL 25 MG TAB PO SCH ×2 (08:37→23:30)
[2018-06-09] MEDS: LEVOTHYROXINE 137 MCG TAB PO SCH (08:41)
--- NOTE | 2018-06-09 09:06 | HOSPPROG ---
Hospitalist Progress Note Assessment/Plan: 77yo F with hx of chronic systolic heart failure, jenna and med non compliance presenting with increased lower extremity edema c/w acute chf exacerbation. 1. Acute on chronic systolic CHF: Volume status improving, weight significantly down from admit (121->116kg) - Lasix on hold since last night - Will re-evaluate diuretic plan after RHC - Continue coreg, entresto, dorothy - TTE with stable LV function from prior - Candidate for BiV pacing (see below) - Consider palliative consultation this admission 2. KANDACE: Cr stable but up from baseline, likely hemodynamic from diuresis - Monitor daily - Decreased gabapentin from TID to BID 3. NSVT: 17 beat run on tele 06/07, continues to have some PVCs/couplets, asymptomatic - LHC today to eval for ischemic trigger - EP (Dr Cruz) consulted, recommending BiV pacer/AICD placement. Per cards this could potentially happen today after LHC/RHC 4. BLE weeping edema: C/w massive fluid overload. - ID evaluated, low concern for infection, no antibiotics - Wound care, diuresis 5. JENNA/OHS: Compliant with CPAP 6. Chronic hypoxemic resp insufficiency: Requires 2L 7. Hypothyroidism: TSH ok, continue home LT4 8. Intertriginous onofre: Nystatin powder VTE ppx: Holding for procedure Code: NPO until cath Dispo: Remain inpatient for above procedure(s). Discharge pending clinical course. Subjective: Anxious for cath today. No chest pain or shortness of breath. Pain in legs better. No fevers. Objective: Vital Signs Temp Pulse Resp BP Pulse Ox 36.6 C 77 20 104/51 L 91 L 06/08/18 23:21 06/09/18 08:37 06/09/18 08:15 06/09/18 08:37 06/09/18 08:15 Laboratory Results 06/09/18 06:05 06/09/18 06:05 06/08/18 06/09/18 06/10/18 05:59 05:59 05:59 Intake Total 1798 1638 Output Total 4110 1125 Balance -2312 513 PT 14.1 SEC (12.0-15.0) 06/09/18 06:05 INR 1.07 (0.83-1.16) 06/09/18 06:05 - Physical Exam Constitutional: no apparent distress, appears nourished, not in pain, obese Eyes: PERRL, anicteric sclera, EOMI Ears, Nose, Mouth, Throat: moist mucous membranes, hearing normal, ears appear normal, no oral mucosal ulcers Cardiovascular: regular rate and rhythym, no murmur, rub, or gallop, edema (3+ pitting edema in BLE), No JVD Respiratory: no respiratory distress, no rales or rhonchi, No expiratory wheeze Gastrointestinal: normoactive bowel sounds, soft, non-tender abdomen, no palpable masses Genitourinary: no bladder fullness, no bladder tenderness, no renal bruits Skin: other (erythema under pannus, chronic venous stasis changes in BLE) Musculoskeletal: full muscle strength, no muscle tenderness, normal joint ROM Neurologic: AAOx3, sensation intact bilaterally Psychiatric: interacting appropriately, not anxious, not encephalopathic, thought process linear ICD10 Worksheet Patient Problems: Problems Problem Status Onset CHF (congestive heart failure) Acute Shortness of breath Acute Diverticulitis large intestine w/o perforation or abscess w/o bleeding Acute
--- NOTE | 2018-06-09 09:53 | SOAPPROG ---
CLAUDIO Progress Note Assessment/Plan: Assessment: 77 y/o woman with acute on chronic systolic CHF with LVEF 33%, chronic LBBB, moderate MR and DM. She has diuresed 12lbs from admission and appears near euvolemic. PLAN: 1)L/R cardiac cath today followed by COOKING INSTRUCTOR-D if no PCI needed. 2)probably start on Demadex 60mg PO BID this evening or tomorrow 3)maybe home this weekend (off Diamox) with f/u [facility] or tuesday of next week. 06/09/18 09:50 Subjective: a little lightheaded this AM. Denies CP, rest shortness of breath or syncope. Still some leg edema. Denies fevers or chills. Objective: Vital Signs Temp Pulse Resp BP Pulse Ox 36.6 C 77 20 104/51 L 91 L 06/08/18 23:21 06/09/18 08:37 06/09/18 08:15 06/09/18 08:37 06/09/18 08:15 Laboratory Results 06/09/18 06:05 06/09/18 06:05 06/08/18 06/09/18 06/10/18 05:59 05:59 05:59 Intake Total 1798 1638 Output Total 4110 1125 Balance -2312 513 PT 14.1 SEC (12.0-15.0) 06/09/18 06:05 INR 1.07 (0.83-1.16) 06/09/18 06:05 Physical Exam - Physical Exam General Appearance: alert, obese EENT: normal ENT inspection Neck: non-tender Respiratory: lungs clear Cardiac/Chest: regular rate, rhythm, edema, systolic murmur, No gallop, No JVD Peripheral Pulses: 1+: femoral (R), femoral (L), dorsalis-pedis (R), dorsalis- pedis (L), 2+: carotid (R), carotid (L) Abdomen: non-tender, No guarding, No ascites Skin: warm/dry Extremities: pedal edema Neuro/Psych: alert ICD10 Worksheet Patient Problems: Problems Problem Status Onset CHF (congestive heart failure) Acute Shortness of breath Acute Diverticulitis large intestine w/o perforation or abscess w/o bleeding Acute
--- NOTE | 2018-06-09 10:28 | CPEKG ---
Test Reason : OPEN Blood Pressure : / mmHG Vent. Rate : 067 BPM Atrial Rate : 068 BPM P-R Int : 180 ms QRS Dur : 163 ms QT Int : 449 ms P-R-T Axes : 053 -40 092 degrees QTc Int : 474 ms Sinus rhythm Left bundle branch block Confirmed by Maulik Keen ([id number]) on 06/09/2018 10:27:59 AM Referred By: Confirmed By:Maulik Keen
--- NOTE | 2018-06-09 10:40 | PDPROPOC ---
Sedation Plan of Care Sedation Plan of Care: vital signs stable, mental status noted, patient educated of risks, benefits, alternatives, patient can tolerate sedation ASA Classification: ASA 3 Planned drugs: fentanyl, midazolam Mallampati Score: Class 2 Mallampati Reference Image: Patient passed 3-3-2 rule?: No (high risk)
--- NOTE | 2018-06-09 10:41 | PDHPUP ---
History & Physical Update H&P update statement: This history and physical update is based on an assessment of the patient which was completed after admission or registration (within 24 hours), but prior to the surgery/procedure. H&P update: H&P reviewed & patient examined, no change in patient's condition since H&P completed
[2018-06-09] MEDS ORDERED: ceFAZolin 2 GM/DEXTROSE 100 ML IV ONE (10:43)
[2018-06-09] MEDS ORDERED: BACITRACIN IRRIGATION/NS 50,000 UNITS/1,000 ML BTL IRR ONE (10:43)
--- NOTE | 2018-06-09 13:00 | PDANEPAE ---
ANE History of Present Illness cardiac cath, possible ICD placement ANE Past Medical History - Cardiovascular History Hx Hypertension: No Hx Arrhythmias: Yes Hx Chest Pain: No Hx CHF / Valvular Disease: Yes Hx Palpitations: No Cardiovascular History Comment: moderate MR, mild to mod TR, global hypokinesis with EF 33%, severe LE edema - Pulmonary History Hx COPD: No Hx Asthma/Reactive Airway Disease: No Hx Recent Upper Respiratory Infection: No Hx Oxygen in Use at Home: Yes O2 in Use at Home (L/minute): 3 Hx Sleep Apnea: Yes Sleep Apnea Screening Result - Last Documented: Positive Pulmonary History Comment: JENNA, has used CPAP for 5 years. - Endocrine History Hx Diabetes: No Hypothyroid: Yes Endocrine History Comment: Graves' disease over 20 years ago - Renal History Hx Renal Disorders: No - Liver History Hx Hepatic Disorders: No - Neurological & Psychiatric Hx Hx Neurological and Psychiatric Disorders: No - Cancer History Hx Cancer: Yes Cancer History Comment: Breast cancer, skin cancer s/p removal - Congenital Disorder History Hx Congenital Disorders: No - GI History GERD: mild - Surgical History Prior Surgeries: S/p mastectomy, tonsillectomy ANE Review of Systems Review of Systems: ANE Patient History - Allergies Allergies/Adverse Reactions: miconazole [From Neosporin AF] Allergy (Unknown, Verified 05/14/17 11:41) Unknown amoxicillin [From Augmentin] Allergy (Verified 06/05/18 16:10) clavulanic acid [From Augmentin] Allergy (Verified 06/05/18 16:10) - Home Medications Home Medications: Furosemide [Lasix 40 MG (*)] 40 mg PO BIDDIUR 03/27/10 [Last Taken 06/05/18 08: 00] Gabapentin [Neurontin] 600 mg PO TID 03/27/10 [Last Taken 06/05/18 08:00] Levothyroxine [Synthroid 137 mcg (*)] 137 mcg PO DAILY06 03/27/10 [Last Taken ] Aspirin EC [Aspirin EC 325 mg (*)] 325 mg PO DAILY 05/14/17 [Last Taken 06/05/18 ] Bupropion HCl [Wellbutrin Xl] 300 mg PO DAILY 05/14/17 [Last Taken 06/05/18] Calcium Carbonate/Vitamin D3 [Oyster Shell Calcium-Vit D Tab] 1 tab PO DAILY 05/20 [Last Taken 05/13/17] Carvedilol [Coreg (*)] 25 mg PO BIDMEAL 05/14/17 [Last Taken 06/05/18 08:00] Herbals/Supplements -Info Only 1 ea PO DAILY 05/14/17 [Last Taken Unknown] Multivitamins [Multivitamin (*)] 1 each PO DAILY 05/14/17 [Last Taken 05/13/17] Pramipexole Di-HCl [Mirapex 1 mg (*)] 1 mg PO HS PRN 05/14/17 [Last Taken ] Sacubitril/Valsartan 24/26Mg [Entresto 24 mg/26 mg (RX)] 1 tab PO BID 05/14/17 [ Last Taken 06/05/18 08:00] Spironolactone [Aldactone 25 MG (*)] 25 mg PO DAILY 05/14/17 [Last Taken ] - NPO status NPO Since - Liquids (Date): 06/08/18 NPO Since - Liquids (Time): 23:59 NPO Since - Solids (Date): 06/08/18 NPO Since - Solids (Time): 23:59 - Anes Hx Anes Hx: no prior problems - Smoking Hx Smoking Status: Former smoker (stopped smoking in 21 years ago, smoked 1 ppd for about 40 years) Marijuana use: No - Alcohol Use Alcohol Use: Occasionally - Family Anes Hx Family Anes Hx: none ANE Labs/Vital Signs - Labs Result Diagrams: 06/09/18 06:05 06/09/18 06:05 - Vital Signs Blood Pressure: 104/51 Heart Rate: 77 Respiratory Rate: 20 O2 Sat (%): 91 Height: 154.94 cm Weight: 116.8 kg ANE Physical Exam - Airway Neck exam: FROM Mallampati Score: Class 3 Mouth exam: normal dental/mouth exam - ASA Status ASA Status: III ANE Anesthesia Plan Anesthesia Plan: GA with mask
[2018-06-09] MEDS ORDERED: LIDOCAINE 1% 300 MG/30 ML SDV ONE ×2 (13:41→15:39)
[2018-06-09] MEDS ORDERED: IOPAMIDOL (ISOVUE-370) 150 ML BTL IV ONE (13:41)
[2018-06-09] MEDS ORDERED: fentaNYL 100 MCG/2 ML INJ ONE (13:41)
[2018-06-09] MEDS ORDERED: MIDAZOLAM 2 MG/2 ML VIAL ONE (13:41)
[2018-06-09] MEDS ORDERED: PROPOFOL/EMULSION 500 MG/50 ML BOTTLE IV ONE (13:58)
[2018-06-09] MEDS ORDERED: HEPARIN 10,000 UNIT/10 ML MDV (1,000 UNIT/ML) ONE (14:20)
[2018-06-09] MEDS ORDERED: VERAPAMIL 5 MG/2 ML VIAL ONE (14:20)
--- NOTE | 2018-06-09 14:26 | PDDXCAT ---
Diagnostic Cath Note - . 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 There is no evidence of flow-limiting disease. There is HESHAM III flow. LAD: The left anterior descending is 3mm in size and gives rise to a 2mm diagonal branch. There are left to right collaterals to the distal right coronary artery via septal branches of the left anterior descending. LCX: The circumflex gives rise to an obtuse marginal branch. There is no evidence of flow-limiting obstruction. There is HESHAM III flow. RCA: The right coronary artery is 3mm in size and dominant. There is a 70% stenosis proximal to the acute marginal branch after which the right coronary artery is completely occluded. Ramus: The ramus is 2mm in size. There is an 80% stenosis near the takeoff of the left main vessel. EDP: 32mmHg - Findings-Right Heart Catheterization RA: RV: 59/14/ PA: 56/23/37 PAOP: AO: 103/51/71 Complications: NONE Estimated blood loss: <50ml Closure method: Angioseal Assessment: The patient has flow-limiting coronary disease.There is a 70% stenosis of the right coronary artery proximal to the acute marginal branch. The RCA is completely occluded distal to the acute marginal branch. The ramus has an ostial 80% obstruction near the take of the left main coronary vessel. The patient has left to right collaterals to the distal right coronary via the septal perforators as well as a distal apical collateral to distal PDA. Plan: The patient has flow limiting coronary disease that should be treated medically to achieve a non-HDL Cholesterol of less than 100 mg/dL. The patient has mainly a non ischemic cardiomyopathy with reduced EF and LBBB and needs a bi V defibrillator. Intervention: NONE Patient Problems: Problems Problem Status Onset Diverticulitis large intestine w/o perforation or abscess w/o bleeding Acute CHF (congestive heart failure) Acute Shortness of breath Acute
[2018-06-09] MEDS ORDERED: IOPAMIDOL (ISOVUE-300) 50 ML VIAL ONE ×2 (15:31→16:44)
[2018-06-09] MEDS ORDERED: LIDO/EPI 1% **for epidural** 30 ML SDV ONE (15:39)
[2018-06-09] MEDS ORDERED: BUPIVACAINE 0.5% 30 ML SDV ONE (15:40)
[2018-06-09] MEDS ORDERED: PROPOFOL 200 MG/20 ML VIAL ONE ×3 (16:05→18:01)
[2018-06-09] MEDS ORDERED: NALOXONE HCL 0.4 MG/ML INJ IVP PRN (18:38)
[2018-06-09] MEDS ORDERED: fentaNYL 100 MCG/2 ML INJ IVP PRN (18:38)
--- NOTE | 2018-06-09 18:42 | EPPROC ---
Electrophysiology Procedure Note: PROCEDURE: Bi-ventricular implantable cardioverter-defibrillator implantation DATE OF PROCEDURE: 06/09/2018 IMPLANTED DEVICE: Ilivia 7 HF-T QP DF4 IS4 ProMRI Model# [id number] Serial# [id number] IMPLANTED LEADS: Right Atrial: Biotronik Solia S 45 Model# [id number] Serial# [id number] Right Ventricle: Biotronik Plexa ProMRI S 65 Model# [id number] Serial# [id number] Left Ventricle: Sentus ProMRI OTW QP S-85/49 Model# [id number] Serial# [id number] COMPLICATIONS: None. PEST CONTROL APPLICATOR: Ronnie Hoyt MD INDICATION AND APPROPRIATE USE CRITERIA: The device is being implanted for non- sustained ventricular tachycardia. PROCEDURE IN DETAIL: After informed consent was obtained and n.p.o. status was confirmed, the region of the left subclavicular fossa was cleaned, prepped and draped in a sterile fashion. Approximately 30 mL of 1% lidocaine was utilized for local anesthesia. The skin was sharply incised with a #10 blade. Electrocautery and local pressure were used for hemostasis. Sharp and blunt dissection was used to access the pacemaker pocket overlying the pectoralis major fascia. The pocket was thoroughly flushed and checked for bleeding. Hemostasis was established and the old device was removed from the pocket. The atrial and ventricular lead and defibrillator coil set screws were loosened. The chronic right atrial lead was capped and sutured with O silk. An 18-gauge Cook needle was used to gain access to the left subclavian vein. A straight 0.038 [place] wire was advanced into the IVC and exchanged for a J wire in the inferior vena cava. A 7-F peel-away sheath was advanced over the J wire. The J wire and dilator were removed as well as the peel away sheath. The Atrial lead was manipulated with care into the RA appendage under direct fluoroscopic guidance and screwed into place in the right atrial appendage. The lead was sutured into place with O Ethibond. The atrial lead serial number was checked and placed in the upper pole lead housing of the new pulse generator/AICD and set screw firmly applied. The procedure was repeated for the RV lead and defibrillator coils with the appropriate set screws. Ventricular lead threshold was tested and found to be 0.3V at 0.4ms width. R-wave amplitude was measured at 24.20 mV. Lead impedance was 694 Ohms. The atrial lead threshold was tested at 0.3V at 0.4ms width. P- wave amplitude was 7.2mV, lead impedance was 781 Ohms. The left ventricle lead threshold was tested at 1.4V at 0.4ms width. R-wave amplitude was 24mV, lead impedance is 1721 Ohms. Defibrillator shock coil impedance is 82 Ohms. The device was placed in the pocket and sutured in place with #0 Ethibond. The skin was closed with a 3-layered 3-0 Vicryl, 2-0 Vicryl and 4-0 Monocryl repair with excellent wound edge opposition and hemostasis documented. The V fib zone is set at 214 BPM with ATP x 1 only if the rhythm meets stability criteria (12 cycles) otherwise the device will deliver a 40 Joule shocks x 8 cycles. The device was set with a VT1 monitoring zone of greater than 176BPM with ATP x 3 bursts followed by 40 Joules x 8 cycles. The patient returned to the post cath recovery unit in good and stable condition where a stat postoperative chest x-ray and EKG were obtained. There was no evidence of pneumothorax and the wires appeared to be in stable position. FINAL IMPRESSION: Successful elective Bi-Ventricular implantable cardioverter- defibrillator implantation. Patient Problems: Problems Problem Status Onset Diverticulitis large intestine w/o perforation or abscess w/o bleeding Acute CHF (congestive heart failure) Acute Shortness of breath Acute
[2018-06-09] MEDS ORDERED: HYDROCODONE/APAP 5/325 TAB PO PRN (19:01)
[2018-06-09] MEDS ORDERED: ATROPINE SULFATE 1 MG/10 ML SYR IVP PRN (19:01)
[2018-06-09] MEDS ORDERED: ONDANSETRON 4 MG/2 ML VIAL IVP PRN (19:01)
[2018-06-09] MEDS ORDERED: KETOROLAC 30 MG/1 ML SDV IVP ONE (20:00)
[2018-06-09] MEDS ORDERED: KETOROLAC 30 MG/1 ML SDV ONE (20:34)
[2018-06-10] MEDS: LEVOTHYROXINE 137 MCG TAB PO SCH (04:35)
[2018-06-10] MEDS: GABAPENTIN 300 MG CAP PO SCH ×2 (10:20→21:32)
[2018-06-10] MEDS: acetaZOLAMIDE 250 MG TAB PO SCH ×2 (10:20→21:32)
[2018-06-10] MEDS: buPROPion XL 150 MG TAB PO SCH (10:20)
[2018-06-10] MEDS: SACUBITRIL/VALSARTAN 24/26MG 1 EA TAB PO SCH (10:20)
[2018-06-10] MEDS: MULTIVITAMINS 1 EACH TAB PO SCH (10:20)
[2018-06-10] MEDS: CARVEDILOL 25 MG TAB PO SCH ×2 (10:20→17:34)
[2018-06-10] MEDS: ENOXAPARIN 40 MG/0.4 ML SYR SC SCH ×2 (10:21→21:31)
[2018-06-10] MEDS: ASPIRIN EC 325 MG TAB PO SCH (10:21)
[2018-06-10] MEDS: NYSTATIN POWDER 15 GM BTL TP SCH ×2 (10:21→21:31)
[2018-06-10] MEDS: CALCIUM CARB W/VIT D 500 MG TAB PO SCH (10:21)
[2018-06-10] MEDS: SPIRONOLACTONE 25 MG TAB PO SCH (10:23)
--- NOTE | 2018-06-10 11:26 | ECHO ---
[email or web address] [address] [address] Main: [phone] Fax: Transthoracic Echocardiogram Name: KI ARIZA MR#: [id number] Study Date: 06/10/2018 Study Time: 09:20 AM Date of : 1940 Age: 77 year(s) Height: ( ) Weight: ( ) BSA: Gender: Female Examination: Limited Echo Indication: LTD echo to assess for pericardial effusion S/P pacemaker Image Quality: Technically Difficult Contrast: Requested by: Shonda Wyatt BP: / Heart Rate: Rhythm: Indication: LTD echo to assess for pericardial effusion S/P pacemaker Procedure Staff Conveyor Maintenance Mechanic: Sherien Tucker [facility] Reading Physician: Jens Torres MD Requesting Provider: Conclusions: There is a pacemaker lead noted in the right ventricle. Trivial pericardial effusion. No echocardiographic evidence of hemodynamic compromise. Measurements: Chambers Valvular Assessment AV/MV Valvular Assessment TV/PV Normal Normal Normal Name Value Range Name Value Range Name Value Range Continued Measurements: Findings: Right Ventricle: There is a pacemaker lead noted in the right ventricle. Pericardium: Trivial pericardial effusion. No echocardiographic evidence of hemodynamic compromise. There is pericardial fat. (No Signature Object) Patient: KI ARIZA Study Date: 06/10/2018 Page 1 of 1 09:20 AM [id number]
--- NOTE | 2018-06-10 12:18 | PDCARPN ---
Cardiology Progress Note Chief Complaint: post bi V defib complicated by pericardial staining Assessment/Plan: Assessment: Non ischemic and ischemic cardiomyopathy s/p BiV AICD complicated by pericardial staining the differential of which is related to catheter trauma to the coronary sinus, RV lead screw perforation in the apex or inadvertent placement of the rv lead in the middle cardiac vein. The patient feels better this morning and the echo does not show an increasing effusion. The LV function has improved. The daughter who is a CVC nurse is in favor of repeating the echo once again tomorrow morning. I think that will be reasonable. Plan: As above. 06/10/18 12:12 Subjective: I am feeling better and less short of breath. Reviewed/Discussed With: family, multidisciplinary team Time Spent with Patient: greater than 25 minutes Time Spent with Patient: Greater than 25 minutes spent on this patients care, greater than 50% of time spent counseling, educating, and coordinating care regarding the above mentioned plan. Objective: Vital Signs (8 Hrs) Temp Pulse Resp BP Pulse Ox 06/10/18 10:20 77 108/61 06/10/18 09:47 77 24 H 95 06/10/18 07:30 36.6 C 66 20 108/61 95 Intake/Output (24 Hrs) 06/09/18 06/10/18 06/11/18 05:59 05:59 05:59 Intake Total 1638 300 360 Output Total 1125 500 Balance 513 -200 360 Intake: Oral (ml) 1518 300 360 IV Intake (ml) 120 Output: Urine (ml) 1125 500 Bedside Commode 500 Catheter 625 500 Other: Weight 116.4 kg 116.8 kg 117.6 kg Intake Quantity Yes Yes Sufficient Output Comment Catheter external cath Number of Voids Catheter 1 Result Diagrams: 06/10/18 04:30 06/10/18 04:30 Cardiac Labs: I feel better an less short of breath... EKG: I feel better and less short of breath with walking. Telemetry: atrial sensed BiV paced rhythm with occasional PVc's - Physical Exam Constitutional: no apparent distress, obese Eyes: PERRL, anicteric sclera, No pale conjunctiva Ears, Nose, Mouth, Throat: moist mucous membranes Cardiovascular: regular rate and rhythm, systolic murmur Respiratory: clear to auscultate bilat, no crackles Gastrointestinal: normoactive bowel sounds Psychiatric: cooperative, interactive, following commands, not anxious ICD10 Worksheet Patient Problems: Problems Problem Status Onset Diverticulitis large intestine w/o perforation or abscess w/o bleeding Acute CHF (congestive heart failure) Acute Shortness of breath Acute
--- NOTE | 2018-06-10 13:00 | CPEKG ---
Test Reason : OPEN Blood Pressure : / mmHG Vent. Rate : 060 BPM Atrial Rate : 060 BPM P-R Int : 194 ms QRS Dur : 146 ms QT Int : 470 ms P-R-T Axes : -10 178 -09 degrees QTc Int : 470 ms Atrial-ventricular dual-paced rhythm Confirmed by Maulik Keen ([id number]) on 06/10/2018 12:59:16 PM Referred By: Confirmed By:Maulik Keen
--- NOTE | 2018-06-10 13:50 | HOSPPROG ---
Hospitalist Progress Note Assessment/Plan: # acute on chronic sCHF exacerbation, mainly non-ischemic but she does have non- flow limiting disease - 6kg diuresis - cont coreg, entresto, aldactone, diamox # CAD - asa, LDL 61 # possible RV perforation d/t AICD lead - HD stable, no tamponade - repeat echo tomorrow # mild KANDACE - slightly above baseline - no nephrotoxins (received toradol, contrast) # morbid obesity # NSVT - now with AICD # BLE weeping edema - d/t fluid overload # JENNA - CPAP # hypothyroid - synthroid # intertriginous candidiasis - nystatin powder # dispo - recommending snf Subjective: s/p cath and bi-V ECG; no CP today; we discussed SNF placement Objective: Vital Signs Temp Pulse Resp BP Pulse Ox 36.5 C 61 20 85/54 L 97 06/10/18 12:00 06/10/18 12:00 06/10/18 12:00 06/10/18 12:00 06/10/18 12:00 Laboratory Results 06/10/18 04:30 06/10/18 04:30 06/09/18 06/10/18 06/11/18 05:59 05:59 05:59 Intake Total 1638 300 980 Output Total 1125 500 25 Balance 513 -200 955 PT 14.1 SEC (12.0-15.0) 06/09/18 06:05 INR 1.07 (0.83-1.16) 06/09/18 06:05 chart reviewed discussed with Dr Hoyt echo reviewed - Physical Exam Constitutional: obese Ears, Nose, Mouth, Throat: hearing normal Cardiovascular: regular rate and rhythym, no murmur, rub, or gallop, other (L sided PPM) Respiratory: no respiratory distress, no rales or rhonchi, clear to auscultation Gastrointestinal: normoactive bowel sounds, soft, non-tender abdomen, no palpable masses ICD10 Worksheet Patient Problems: Problems Problem Status Onset Diverticulitis large intestine w/o perforation or abscess w/o bleeding Acute CHF (congestive heart failure) Acute Shortness of breath Acute
[2018-06-10] MEDS: ACETAMINOPHEN 325 MG TAB PO PRN (17:34)
[2018-06-10] MEDS: PRAMIPEXOLE 1 MG TAB PO PRN (21:47)
[2018-06-11] MEDS: SACUBITRIL/VALSARTAN 24/26MG 1 EA TAB PO SCH (00:11)
[2018-06-11] MEDS: LEVOTHYROXINE 137 MCG TAB PO SCH (05:14)
[2018-06-11 05:33] LABS: PLATELET COUNT 197 10^3/uL (150-400)
[2018-06-11] MEDS ORDERED: NS 1,000 ML IV SCH ×2 (06:45→11:00)
[2018-06-11] MEDS: ENOXAPARIN 40 MG/0.4 ML SYR SC SCH (08:21)
[2018-06-11] MEDS: CARVEDILOL 25 MG TAB PO SCH (08:42)
--- NOTE | 2018-06-11 08:51 | HOSPPROG ---
Hospitalist Progress Note Assessment/Plan: # acute on chronic sCHF exacerbation, (EF 30%) mainly non-ischemic but she does have non-flow limiting disease - 6kg diuresis - biV AICD placed 06/09 - cont hold all diuretics today given KANDACE # possible RV perforation d/t AICD lead - HD stable, no tamponade on last echo - repeat echo today # CAD - asa, LDL 61 # KANDACE - worse today, little UOP per RN - suspect d/t SHEREEN, NSAID, mild hypotension - receiving 300cc this am, recheck BMP after; renal consult if function worsening # morbid obesity # NSVT - now with AICD # BLE weeping edema - d/t fluid overload # JENNA - CPAP # hypothyroid - synthroid # intertriginous candidiasis - nystatin powder # dispo - recommending snf Subjective: cc - s/p biV pacer; more somnolent this morning; says she has been a wake for some time but sleeping when i see her; little uop per RN; Objective: Vital Signs Temp Pulse Resp BP Pulse Ox 37.1 C 67 20 121/58 H 92 06/11/18 04:00 06/11/18 04:00 06/11/18 04:00 06/11/18 04:00 06/11/18 04:00 Laboratory Results 06/11/18 05:15 06/11/18 05:15 06/10/18 06/11/18 06/12/18 05:59 05:59 05:59 Intake Total 300 1880 Output Total 500 225 Balance -200 1655 PT 14.1 SEC (12.0-15.0) 06/09/18 06:05 INR 1.07 (0.83-1.16) 06/09/18 06:05 high risk with KANDACE - Physical Exam Constitutional: obese Cardiovascular: regular rate and rhythym (very distant), no murmur, rub, or gallop Respiratory: no respiratory distress, no rales or rhonchi, clear to auscultation Gastrointestinal: normoactive bowel sounds, soft, non-tender abdomen, no palpable masses ICD10 Worksheet Patient Problems: Problems Problem Status Onset Diverticulitis large intestine w/o perforation or abscess w/o bleeding Acute CHF (congestive heart failure) Acute Shortness of breath Acute
[2018-06-11] MEDS: buPROPion XL 150 MG TAB PO SCH (10:31)
[2018-06-11] MEDS: ASPIRIN EC 325 MG TAB PO SCH (10:31)
[2018-06-11] MEDS: MULTIVITAMINS 1 EACH TAB PO SCH (10:31)
[2018-06-11] MEDS: GABAPENTIN 300 MG CAP PO SCH ×2 (10:31→20:13)
[2018-06-11] MEDS: NYSTATIN POWDER 15 GM BTL TP SCH ×2 (10:45→20:14)
[2018-06-11] MEDS: CALCIUM CARB W/VIT D 500 MG TAB PO SCH (13:53)
[2018-06-11] MEDS: ACETAMINOPHEN 325 MG TAB PO PRN (15:36)
[2018-06-11] MEDS ORDERED: LOPERAMIDE HCL 2 MG CAP PO PRN (20:37)
[2018-06-11] MEDS: oxyCODONE IR 5 MG TAB PO PRN (21:37)
[2018-06-11] MEDS: CARVEDILOL 3.125 MG TAB PO SCH (21:39)
--- NOTE | 2018-06-12 04:01 | ECHO ---
[email or web address] [address] [address] Main: [phone] Fax: Transthoracic Echocardiogram Name: KI ARIZA MR#: [id number] Study Date: 06/11/2018 Study Time: 09:27 AM Date of : 1940 Age: 77 year(s) Height: ( ) Weight: ( ) BSA: Gender: Female Examination: Limited Echo Indication: LTD echo to assess for pericardial effusion S/P pacemaker Image Quality: Adequate Contrast: Requested by: Ronnie Hoyt BP: 117 mmHg/59 mmHg Heart Rate: Rhythm: Indication: LTD echo to assess for pericardial effusion S/P pacemaker Procedure Staff Network Firewall Engineer: Sherine Tucker [facility] Reading Physician: Haile Christensen MD Requesting Provider: Conclusions: There is a pacemaker lead noted in the right ventricle. Trivial pericardial effusion. No significant change compared to 06/10/2018. Measurements: Chambers Valvular Assessment AV/MV Valvular Assessment TV/PV Normal Normal Normal Name Value Range Name Value Range Name Value Range Continued Measurements: Findings: Right Ventricle: There is a pacemaker lead noted in the right ventricle. Pericardium: Trivial pericardial effusion. No echocardiographic evidence of hemodynamic compromise. There is pericardial fat. (No Signature Object) Patient: KI ARIZA Study Date: 06/11/2018 Page 1 of 1 09:27 AM [id number]
[2018-06-12] MEDS: LEVOTHYROXINE 137 MCG TAB PO SCH (05:30)
[2018-06-12 05:44] LABS: PLATELET COUNT 197 10^3/uL (150-400)
[2018-06-12] MEDS: buPROPion XL 150 MG TAB PO SCH (08:33)
[2018-06-12] MEDS: CARVEDILOL 3.125 MG TAB PO SCH ×2 (08:33→18:28)
[2018-06-12] MEDS: MULTIVITAMINS 1 EACH TAB PO SCH (08:33)
[2018-06-12] MEDS: GABAPENTIN 300 MG CAP PO SCH ×2 (08:33→21:37)
[2018-06-12] MEDS: CALCIUM CARB W/VIT D 500 MG TAB PO SCH (08:34)
[2018-06-12] MEDS: ASPIRIN EC 325 MG TAB PO SCH (08:34)
[2018-06-12] MEDS: NYSTATIN POWDER 15 GM BTL TP SCH ×2 (08:34→21:38)
--- NOTE | 2018-06-12 09:57 | PDCARPN ---
Cardiology Progress Note Assessment/Plan: Assessment: 1. Chronic Systolic CHF with LVEF 33% 2. NICM s/p BiV ICD 3. Acute Renal insufficiency 4. Hyponatremia 5. Pericardial Stain: stable on echo Jun 10 and Plan: -Restart Spironolactone 25 mg daily -Restart Entresto -Continue Coreg 12.5 mg bid -Plan to restart Lasix tomorrow after assesing electrolytes and renal function -Labs in AM: BMP, BNP, Mg -Encourage ambulation today and oob in chair 06/12/18 09:53 Subjective: Christel is doing well this AM. No complaints. Alert and appropriate. Confusion yesterday most likely multifactorial, primarily due to increase in BUN. Cr 1.5 today and BUN 47. ICD site without hematoma or ecchymosis. Reviewed/Discussed With: family, hospitalist, multidisciplinary team Objective: Vital Signs (8 Hrs) Temp Pulse Resp BP Pulse Ox 06/12/18 07:25 36.9 C 76 18 127/56 H 95 06/12/18 04:00 36.5 C 77 20 98/45 L 96 Intake/Output (24 Hrs) 06/11/18 06/12/18 06/13/18 05:59 05:59 05:59 Intake Total 1880 1950 Output Total 225 1350 Balance 1655 600 Intake: Oral (ml) 1880 1050 IV Intake (ml) 600 IV Infused (ml) 300 Ns 1,000 ml @ 100 mls/hr 300 IV CONT VANDA Rx#: [id number] Output: Urine (ml) 225 1350 Bedside Commode 300 Catheter 100 950 Toilet 125 100 Other: Weight 117.6 kg 119.6 kg Output Comment Catheter from slot shift supervisor Number of Voids Bedside Commode 2 Catheter 1 Number of Stools Bedside Commode 2 Incontinence 1 Toilet 1 Result Diagrams: 06/12/18 05:30 06/12/18 05:30 - Physical Exam Constitutional: obese Ears, Nose, Mouth, Throat: moist mucous membranes Cardiovascular: regular rate and rhythm, no murmurs, no rubs, other (2+ pitting edema to knee bilat ) Respiratory: clear to auscultate bilat Neurologic: AAOx3, CN II-XII grossly intact Psychiatric: cooperative, interactive, following commands ICD10 Worksheet Patient Problems: Problems Problem Status Onset CHF (congestive heart failure) Acute Shortness of breath Acute Diverticulitis large intestine w/o perforation or abscess w/o bleeding Acute
--- NOTE | 2018-06-12 10:43 | HOSPPROG ---
Hospitalist Progress Note Assessment/Plan: # acute on chronic sCHF exacerbation, (EF 30%) mainly non-ischemic but she does have non-flow limiting disease - weight slightly up today - biV AICD placed 06/09 - restart entresto, aldactone - cont coreg at low dose 3.125 bid # possible RV perforation d/t AICD lead - HD stable, no tamponade on multiple echos # CAD - asa, LDL 61 # KANDACE - better today - suspect d/t SHEREEN, NSAID, mild hypotension - recheck tomorrow # morbid obesity # NSVT - now with AICD # BLE weeping edema - d/t fluid overload # JENNA - CPAP # hypothyroid - synthroid # intertriginous candidiasis - nystatin powder # dispo - recommending snf Subjective: feels much better today; still mild tremors Objective: Vital Signs Temp Pulse Resp BP Pulse Ox 36.9 C 76 18 127/56 H 95 06/12/18 07:25 06/12/18 07:25 06/12/18 07:25 06/12/18 07:25 06/12/18 07:25 Laboratory Results 06/12/18 05:30 06/12/18 05:30 06/11/18 06/12/18 06/13/18 05:59 05:59 05:59 Intake Total 1880 1950 Output Total 225 1350 Balance 1655 600 PT 14.1 SEC (12.0-15.0) 06/09/18 06:05 INR 1.07 (0.83-1.16) 06/09/18 06:05 chart reviewed discussed with Dr Walter davis personally reviewed - Physical Exam Constitutional: chronically ill appearing, obese Cardiovascular: regular rate and rhythym, no murmur, rub, or gallop Respiratory: no respiratory distress, no rales or rhonchi, clear to auscultation Gastrointestinal: normoactive bowel sounds, soft, non-tender abdomen, no palpable masses ICD10 Worksheet Patient Problems: Problems Problem Status Onset Diverticulitis large intestine w/o perforation or abscess w/o bleeding Acute CHF (congestive heart failure) Acute Shortness of breath Acute
[2018-06-12] MEDS: SPIRONOLACTONE 25 MG TAB PO SCH (11:50)
[2018-06-12] MEDS: ACETAMINOPHEN 325 MG TAB PO PRN (11:55)
--- NOTE | 2018-06-12 12:49 | WOCRNPDOC ---
WOCRN Advanced Assessment Note - Skin Integrity Problem, Advanced Assess Right Lower Leg Unknown Dressing Type: ABD Pad, Kerlix Dressing Description: Shadowed Closure Description: Not Approximated Exudate Characteristic(s): Serosanguinous, Serous Integumentary Issue Intervention: Dressing Removed Devorah Wound Tissue: Erythema, Swollen, Weeping, Xerotic, Crusted, Painful/Tender Devorah Wound Swelling: Moderate Wound Bed Color: Pima, Red, Yellow Wound Bed Constitution: Red/Pima - Non Granular Tissue, Dried Exudate Wound Edges: Irregular Site Measurement - Head-to-Toe Length X Width X Depth (cm): open area to right lateral leg 3.2x2.2x0.2 Skin Integrity Problem Comment: Patient has weeping edema to bilateral lower extremities. Patient reports more pain to right leg than left. Patient has open area to lateral aspect that is particularly painful. Proximal portion of wound scabbed over, and small distal portions of leg actively draining serous exudate. Remaining lower leg skin very dry with 50% crusted over with dried exudate. Dressing was missing contact layer, and was difficult and painful to remove. Patient was going to shower. Discussed patient care with ANGEL Antoine who was in room for care. Wound care will continue to follow. Left Lower Leg Unknown Dressing Type: ABD Pad, Kerlix, Mepilex Transfer Dressing Description: Clean/Dry, Intact Closure Description: Not Approximated Exudate Amount: Minimal Exudate Color: Yellow Exudate Characteristic(s): Serous Integumentary Issue Intervention: Dressing Removed Devorah Wound Tissue: Erythema, Swollen, Weeping, Crusted, Painful/Tender Devorah Wound Swelling: Moderate Wound Bed Color: Pima, Red, Yellow Wound Bed Constitution: Red/Pima - Non Granular Tissue, Dried Exudate Skin Integrity Problem Comment: Patient has weeping edema to bilateral lower extremities. Left leg has actively draining weeping edema, surrounded by areas of dry skin with 65% crusted over with exudate. Devorah wound skin very dry. Wound care will continue to follow. Education provided to ANGEL Antoine re: use of contact layer and attractain lotion to dry skin. Wound care will follow.
[2018-06-12] MEDS: SACUBITRIL PO SCH ×2 (14:57→21:37)
[2018-06-12] MEDS: VALSARTAN PO SCH ×2 (14:57→21:37)
[2018-06-12] MEDS: PRAMIPEXOLE 1 MG TAB PO PRN (21:36)
[2018-06-12] MEDS: ENOXAPARIN 40 MG/0.4 ML SYR SC SCH (21:37)
[2018-06-12] MEDS: OXYCODONE/APAP 5/325 TAB PO PRN (21:58)
[2018-06-13] MEDS: LEVOTHYROXINE 137 MCG TAB PO SCH (04:53)
[2018-06-13 05:19] LABS: PLATELET COUNT 205 10^3/uL (150-400)
[2018-06-13] MEDS: NYSTATIN POWDER 15 GM BTL TP SCH ×2 (07:55→22:21)
[2018-06-13] MEDS: ENOXAPARIN 40 MG/0.4 ML SYR SC SCH ×2 (08:56→22:20)
[2018-06-13] MEDS: SPIRONOLACTONE 25 MG TAB PO SCH (08:56)
[2018-06-13] MEDS: ASPIRIN EC 325 MG TAB PO SCH (08:56)
[2018-06-13] MEDS: MULTIVITAMINS 1 EACH TAB PO SCH (08:57)
[2018-06-13] MEDS: GABAPENTIN 300 MG CAP PO SCH ×2 (08:57→22:20)
[2018-06-13] MEDS: CARVEDILOL 3.125 MG TAB PO SCH (08:57)
[2018-06-13] MEDS: CALCIUM CARB W/VIT D 500 MG TAB PO SCH (08:58)
[2018-06-13] MEDS: buPROPion XL 150 MG TAB PO SCH (08:58)
[2018-06-13] MEDS: SACUBITRIL PO SCH (09:00)
[2018-06-13] MEDS: VALSARTAN PO SCH (09:00)
--- NOTE | 2018-06-13 09:27 | HOSPPROG ---
Hospitalist Progress Note Assessment/Plan: 77-year-old with a history of chronic systolic heart failure with LVEF of 33% and obstructive sleep apnea on CPAP is admitted with increasing lower extremity edema and weeping from Cardiology Clinic. She had been on a Lasix drip from June 05 through and had a bump in creatinine and has been off of Lasix since then. Her creatinine has improved today to 1.2 # acute on chronic systolic congestive heart failure with the EF of 30%. Mild non flow limiting coronary artery disease likely nonischemic. * Currently on spironolactone, Entresto and Coreg * Weight down 1 kg * Creatinine improving * Will discuss with Cardiology regarding discharge planning and resumption of Lasix # status post pacemaker # acute renal failure, improving likely multifactorial due to diuresis as well as angiogram, improving daily * Continue to monitor creatinine # possible RV perforation due to AICD line, trivial pericardial effusion noted on echocardiogram with no change # CAD, nonobstructive currently on aspirin and LDL at goal # morbid obesity # chronic edema with venous stasis wounds bilaterally. * Will need ongoing wound care post hospitalization * Likely exacerbated by congestive heart failure # obstructive sleep apnea on CPAP # hypothyroid, on Synthroid # Intertriginous candidiasis on nystatin powder. Disposition: Add on Lasix today, recheck renal function and electrolytes tomorrow morning if everything is stable she can likely be discharged to [facility] rehab Subjective: Patient new to me and chart reviewed. Feels her edema is better but ongoing wounds in her lower extremity seem worse. Denies shortness of breath or chest pain. Will be going to [facility] post hospitalization Objective: Vital Signs Temp Pulse Resp BP Pulse Ox 36.4 C 76 18 118/53 L 90 L 06/13/18 07:52 06/13/18 07:52 06/13/18 07:52 06/13/18 07:52 06/13/18 07:52 Laboratory Results 06/13/18 04:55 06/13/18 04:55 06/12/18 06/13/18 06/14/18 05:59 05:59 05:59 Intake Total 1950 400 Output Total 1350 550 Balance 600 -150 PT 14.1 SEC (12.0-15.0) 06/09/18 06:05 INR 1.07 (0.83-1.16) 06/09/18 06:05 - Physical Exam Constitutional: no apparent distress, obese Eyes: PERRL, EOMI Ears, Nose, Mouth, Throat: moist mucous membranes Cardiovascular: regular rate and rhythym, edema Respiratory: no respiratory distress, clear to auscultation, reduced air movement Gastrointestinal: soft, non-tender abdomen Genitourinary: no bladder fullness Skin: other (Bilateral bandages on her lower extremities) Musculoskeletal: generalized weakness Neurologic: No facial droop Psychiatric: interacting appropriately ICD10 Worksheet Patient Problems: Problems Problem Status Onset Chronic Disease Mgmt/Transitional Care Acute Diverticulitis large intestine w/o perforation or abscess w/o bleeding Acute CHF (congestive heart failure) Acute Shortness of breath Acute
[2018-06-13] MEDS: FUROSEMIDE 40 MG TAB PO SCH (14:27)
--- NOTE | 2018-06-13 17:11 | PDCARPN ---
Cardiology Progress Note Assessment/Plan: Assessment: 1. Chronic Systolic CHF with LVEF 33% 2. NICM s/p BiV ICD 3. Acute Renal insufficiency 4. Hyponatremia 5. Pericardial Stain: stable on echo Jun 10 and Plan: -Increase Coreg to 6.25 mg bid -Agree with Lasix 20 mg daily -Continue Spironolactone 25 mg daily -Continue Entresto -Labs in AM: BMP, BNP, Mg -Encourage ambulation today and oob in chair 06/12/18 09:53 06/13/18 17:11 Subjective: Christel continues to make gradual progress. Her weight is down 1 kg from yesterday. Cr continues to improve and is down to 1.2. No new issues regarding confusion or tremor. ICD site is without hematoma or ecchymosis. No complaints of increased sob or ross. Reviewed/Discussed With: hospitalist, multidisciplinary team Time Spent with Patient: greater than 25 minutes Time Spent with Patient: Greater than 25 minutes spent on this patients care, greater than 50% of time spent counseling, educating, and coordinating care regarding the above mentioned plan. Objective: Vital Signs (8 Hrs) Temp Pulse Resp BP Pulse Ox 06/13/18 15:49 36.8 C 74 18 158/72 H 90 L 06/13/18 11:47 77 18 117/73 88 L Intake/Output (24 Hrs) 06/12/18 06/13/18 06/14/18 05:59 05:59 05:59 Intake Total 1950 400 Output Total 1350 550 950 Balance 600 -150 -950 Intake: Oral (ml) 1050 400 IV Intake (ml) 600 0 IV Infused (ml) 300 Ns 1,000 ml @ 100 mls/hr 300 IV CONT VANDA Rx#: [id number] Output: Urine (ml) 1350 550 950 Bedside Commode 300 Catheter 950 300 700 Incontinence 250 Toilet 100 250 Other: Weight 119.6 kg 118.9 kg 117.4 kg Output Comment [facility] from [facility] Number of Voids Bedside Commode 2 1 Incontinence 1 Toilet 2 Number of Stools Bedside Commode 2 Incontinence 1 Toilet 1 Result Diagrams: 06/13/18 04:55 06/13/18 04:55 - Physical Exam Constitutional: obese Cardiovascular: regular rate and rhythm, no murmurs, no rubs, no gallops, other (3+ dense edema to knee bilat with weeping drainage from Right leg ) Respiratory: clear to auscultate bilat Neurologic: AAOx3, CN II-XII grossly intact Psychiatric: cooperative, interactive, following commands ICD10 Worksheet Patient Problems: Problems Problem Status Onset CHF (congestive heart failure) Acute Chronic Disease Mgmt/Transitional Care Acute Shortness of breath Acute Diverticulitis large intestine w/o perforation or abscess w/o bleeding Acute
[2018-06-13] MEDS: CARVEDILOL 6.25 MG TAB PO SCH (18:32)
--- NOTE | 2018-06-13 21:27 | ASMTCMCOM ---
CM Note CM Note Notes: Spoke with patient's daughter about d/c planning. She requested a referral to [facility]. Patient has been resistant to the idea of SNF but she lives alone, and her children agree that she is not safe to return home. Referral sent. Case Management will follow. Date Signed: 06/13/2018 10:22 AM Electronically Signed By:Dawna Linares RN
--- NOTE | 2018-06-13 21:31 | ASMTCMCOM ---
CM Note CM Note Notes: 06/13/2018 Case Management Note Discussed pt during rounds this morning. Anticipating d/c tomorrow. Transitional Care met w/pt today for education and will follow after d/c. Met w/pt to discuss discharge plans. Pt in agreement that [facility] is appropriate. Updated [facility]. Case [facility] Case Management to follow. Date Signed: 06/13/2018 01:39 PM Electronically Signed By:Gosia Xiong RN
[2018-06-13] MEDS: OXYCODONE/APAP 5/325 TAB PO PRN (22:20)
[2018-06-13] MEDS: SACUBITRIL/VALSARTAN 24/26MG 1 EA TAB PO SCH (22:21)
[2018-06-14] MEDS: LEVOTHYROXINE 137 MCG TAB PO SCH (06:10)
[2018-06-14] MEDS: CALCIUM CARB W/VIT D 500 MG TAB PO SCH (08:20)
[2018-06-14] MEDS: CARVEDILOL 6.25 MG TAB PO SCH (08:21)
[2018-06-14] MEDS: SPIRONOLACTONE 25 MG TAB PO SCH (08:22)
[2018-06-14] MEDS: MULTIVITAMINS 1 EACH TAB PO SCH (08:22)
[2018-06-14] MEDS: FUROSEMIDE 40 MG TAB PO SCH (08:23)
[2018-06-14] MEDS: buPROPion XL 150 MG TAB PO SCH (08:25)
[2018-06-14] MEDS: ASPIRIN EC 325 MG TAB PO SCH (08:25)
[2018-06-14] MEDS: GABAPENTIN 300 MG CAP PO SCH (08:25)
[2018-06-14] MEDS: SACUBITRIL/VALSARTAN 24/26MG 1 EA TAB PO SCH (08:26)
[2018-06-14] MEDS: ENOXAPARIN 40 MG/0.4 ML SYR SC SCH (08:27)
--- NOTE | 2018-06-14 11:22 | PDCARPN ---
Cardiology Progress Note Assessment/Plan: Assessment: 1. Chronic Systolic CHF with LVEF 33% 2. NICM s/p BiV ICD 3. Acute Renal insufficiency 4. Hyponatremia 5. Pericardial Stain: stable on echo Jun 10 and Plan: -Increase Coreg to 25 mg bid -Continue Lasix 20 mg daily -Continue Spironolactone 25 mg daily -Continue Entresto -Stable for transfer to SNF -Follow up appointments scheduled: 1. Dr. Okeefe. Tuesday June 19, 2018 at 2:15pm at [facility] 2. Wound and ICD check: June 22, 2018 at 2:30 pm at [facility] 3[address] Dr. Okeefe. Tuesday June 26, 2018 at 11:30 Am at the [facility] 06/14/18 11:22 Subjective: Mrs. Walker is doing well this AM. She has no complaints. She is out of bed and in a chair. BUN and Cr have normalized. BP is stable and I think she can return to admission dose of coreg at 25 mg bid. ICD site without hematoma or ecchymosis. Lower extremity edema is improving, less weeping from RLE. I think she is stable for transfer to SNF today. She has follow up scheduled with Dr Okeefe and Wound/ICD check. Reviewed/Discussed With: family, hospitalist Time Spent with Patient: greater than 25 minutes Time Spent with Patient: Greater than 25 minutes spent on this patients care, greater than 50% of time spent counseling, educating, and coordinating care regarding the above mentioned plan. Objective: Vital Signs (8 Hrs) Temp Pulse Resp BP Pulse Ox 06/14/18 07:37 36.6 C 72 16 130/59 H 98 06/14/18 04:00 36.8 C 75 17 131/62 H 94 Intake/Output (24 Hrs) 06/13/18 06/14/18 06/15/18 05:59 05:59 05:59 Intake Total 400 1450 Output Total 800 2075 100 Balance -400 -625 -100 Intake: Oral (ml) 400 1450 IV Intake (ml) 0 Output: Urine (ml) 800 2075 100 Catheter 550 1100 Incontinence 250 425 Toilet 550 100 Other: Weight 118.9 kg 117.4 kg 117.4 kg Intake Quantity Yes Sufficient Number of Voids Bedside Commode 1 1 Incontinence 1 Toilet 2 Number of Stools Bedside Commode 1 Toilet 1 1 Result Diagrams: 06/13/18 04:55 06/14/18 06:35 - Physical Exam Constitutional: obese Ears, Nose, Mouth, Throat: moist mucous membranes Cardiovascular: no murmurs, no rubs, no gallops, other (2+ pitting edema to knee bilaterally. ICD site without hematoma or ecchymosis. ) Respiratory: clear to auscultate bilat Neurologic: AAOx3, CN II-XII grossly intact Psychiatric: cooperative, interactive, following commands ICD10 Worksheet Patient Problems: Problems Problem Status Onset CHF (congestive heart failure) Acute Chronic Disease Mgmt/Transitional Care Acute Shortness of breath Acute Diverticulitis large intestine w/o perforation or abscess w/o bleeding Acute
--- NOTE | 2018-06-14 12:15 | PDDCSUM ---
Discharge Summary Discharge Summary: 77-year-old with a history of chronic systolic heart failure with LVEF of 33% and obstructive sleep apnea on CPAP is admitted with increasing lower extremity edema and weeping from Cardiology Clinic. She had been on a Lasix drip from June 05 through and had a bump in creatinine and has been off of Lasix since then. Her creatinine is back to baseline. BP is stable. Edema is better. Med Mgt: -Increase Coreg to 25 mg bid -Continue Lasix 20 mg daily -Continue Spironolactone 25 mg daily -Continue Entresto -Follow up appointments scheduled: 1. Dr. Okeefe. Tuesday June 19, 2018 at 2:15pm at the [facility] 2. Wound and ICD check: June 22, 2018 at 2:30 pm at [facility] 3. Dr. Okeefe. Tuesday June 26, 2018 at 11:30 Am at the [facility] Discharge Diagnosis: #Chronic Systolic CHF with LVEF 33% #NICM s/p BiV ICD #Acute Renal insufficiency, back to baseline # Hyponatremia, resolved # Pericardial Stain: stable on echo Jun 10 and #Obesity # chronic edema with venous stasis wounds bilaterally. * Will need ongoing wound care post hospitalization * Likely exacerbated by congestive heart failure # obstructive sleep apnea on CPAP # hypothyroid, on Synthroid # Intertriginous candidiasis on nystatin powder. EXAM: NAD AAOX3 RRR DECREASED LUNG SOUNDS MEDS: SEE MED REC F/U: WITH PCP AND CARDIOLOGY PER APPTS ABOVE TOTAL TIME SPEN ON D/C IS 35 MINS
--- NOTE | 2018-06-14 14:49 | ASMTLACE ---
LACE Length of stay for Answers: 7-13 days current admission Acuity / Level of Answers: Yes Care: Did the patient have an inpatient admission? Comorbidities - select Answers: Congestive heart failure all that apply Other Notes: Graves disease; HTN # of Emergency department Answers: 1-2 visits in the last 6 months Score: 12 Date Signed: 06/14/2018 02:48 PM Electronically Signed By:Rae Choudhary
--- NOTE | 2018-06-14 14:54 | ASDISCHSUM ---
Discharge Information Plan Status:SNF Medically Cleared to Leave:06/13/2018 Discharge Date:06/13/2018 CM D/C Disposition:[facility] Facility ADT D/C Disposition:Home, Routine, Self-Care Projected Discharge Date:06/14/2018 01:00 PM Transportation at D/C:Wheelchair Van Discharge Delay Reason: Follow-Up Date:06/14/2018 01:00 PM Discharge Slot: Final Diagnosis:CHF, EDEMA, SOB Placement Information Referral Type:*Home Health Care Services Referral ID:[id number] Provider Name: Address 1: Phone Number: Address 2: Fax Number: City: Selection Factors: State: Referral Type:*Senior Care/SNF Referral ID:[id number] Provider Name:[facility] Address 1:[address] Address 2: City:[place] Selection Factors: State:[place] Patient Contact Information Contact Name:ALINA Relationship:Daughter Address:[address] City:[place] Alternate Phone: State/Zip Code:[place] [address] Email: Financial Information Financial Class:Medicare Primary Plan Desc:MEDICARE INPATIENT Primary Plan Number:[id number] Secondary Plan Desc:NUNU/BRIAN SUPPLEMENT Secondary Plan Number:[id number] Assessment Information LACE LACE Length of stay for Answers: 7-13 days current admission Acuity / Level of Answers: Yes Care: Did the patient have an inpatient admission? Comorbidities - select Answers: Congestive heart failure all that apply Other Notes: Graves disease; HTN # of Emergency department Answers: 1-2 visits in the last 6 months Score: 12 Date Signed: 06/14/2018 02:48 PM Electronically Signed By:Rae Choudhary [facility] CM Progress Note CM Note CM Note Notes: Spoke with pt and daughter in the room. Also discussed in rounds. Pt lives with son, and is planning to move in with daughter later in the month. Pt admitted for SOB, CHF exacerbation, edema and weepy legs. PT recommending HHC or SNF. Pt has used [facility] in the past and would like to work with them again. Pt informed that if she later decides to go to SNF to contact CM. Pt comfortable with HHC. Referral sent to [facility]. CM to follow. D/C Plan: [facility] PT/OT/RN Date Signed: 06/06/2018 02:28 PM Electronically Signed By:Rae Choudhary [facility] CM Progress Note CM Note CM Note Notes: ADDENDUM: [facility] unable to accept pt as their WC RN will be out of town. [facility] accepted. Pt informed. D/C Plan: Home with [facility] RN and PT Date Signed: 06/06/2018 04:26 PM Electronically Signed By:Rae Choudhary [facility] CM Progress Note CM Note CM Note Notes: 06/08/2018 Case Management Note Discussed pt during rounds this morning. Pt to have heart cath on Tuesday with probable BIVAICD placement next week or Tuesday. Anticipating d/c towards later part of next week. Case Management d/c poc: [facility] RN PT Case Management to follow. Date Signed: 06/08/2018 12:16 PM Electronically Signed By:Gosia Xiong RN [facility] CM Progress Note CM Note CM Note Notes: Spoke with patient's daughter about d/c planning. She requested a referral to [facility]. Patient has been resistant to the idea of SNF but she lives alone, and her children agree that she is not safe to return home. Referral sent. Case Management will follow. Date Signed: 06/13/2018 10:22 AM Electronically Signed By:Dawna Linares RN [facility] CM Progress Note CM Note CM Note Notes: 06/13/2018 Case Management Note Discussed pt during rounds this morning. Anticipating d/c tomorrow. Transitional Care met w/pt today for education and will follow after d/c. Met w/pt to discuss discharge plans. Pt in agreement that [facility] is appropriate. Updated [facility]. Case Management d/c poc: [facility]hab Case Management to follow. Date Signed: 06/13/2018 01:39 PM Electronically Signed By:Gosia Xiong RN Case Management Discharge Plan Note Case Management Discharge Discharge Order Complete? Answers: Yes Patient to Obtain Answers: Other Notes: SNF Medications Transportation Arranged Answers: Other Notes: [facility] Transport will Pick (Date 06/14/2018 04:30 PM & Time) Faxed Final Orders Answers: Yes Agency/Facility Transfer Answers: Yes Report Printed & Faxed to Receiving Agency Family Notified Answers: Yes Notes: pt stated she would umer l her dtr Discharge Comments Notes: Pt to discharge to [facility]. RN given number to call report. No further CM needs noted at this time. CM available should needs change. Date Signed: 06/14/2018 02:52 PM Electronically Signed By:Rae Choudhary Intervention Information Intervention Type:*Incorrect Registration Date of Service:06/06/2018 08:39 AM Patient Type:Observation Staff Member:Angelina Waite Hours: Discipline: Severity: Comment: Intervention Type:*IM-Signed Date of Service:06/14/2018 01:55 PM Patient Type:Inpatient Staff Member:Judi Omer Hours: Discipline: Severity: Comment:
--- NOTE | 2018-06-14 15:08 | PDIAF ---
- Diagnosis Diagnosis: chf Code Status: Full Code - Medication Management Discharge Medications: electronically signed and located in the Home Medication List. - Orders Services needed: Physical Therapy, Occupational Therapy Diet Recommendation: cardiac -low fat low salt Diet Texture: Regular Texture Diet Additional Instructions: Please follow up within 3- 4 weeks of discharge with [facility] if you continue to have issues with your wounds: You may reach them at [phone] for an appointment and continued management of your wounds. Please call them jackson to schedule your appointment as they fill up quickly. If before that time you have any issues, please follow up with your PCP. Wound Care Change dressings to bilateral every 2 days and as needed. 1. Clean with normal saline and gauze, or gentle soap and water with washcloth. 2. Apply Atractain Cream or other extra moisturizing cream liberally to all areas of feet and legs except between toes that don't have mepilex transfer dressings. 3. Skin prep andrew wound 4. Wound gel to open wound beds (right leg) 5. Mepilex transfer to wound bed/open areas 6. Cover with large absorbant dressing, such as ABD pads 7. Secure lightly with kerlix and netting. Sally Muñoz RN Wound Care Team Follow up appointments for Cardiology: 06/22 at 2:30 pm for a wound check and device check for your pacemaker. 06/19 at 2:[address] Okeefe 06/26 at 11:[address] Okeefe. - Follow Up Care Current Providers and Referrals: Avila Okeefe MD [Medical Doctor] - Ronnie Hoyt MD [Medical Doctor] - Carolina Pineda MD [Primary Care Provider] - As per Instructions
[2018-06-14 15:57] VITALS: BP 133/57
== END 2018-06-14 17:10 | DRG 223 ==
LOC: OBSVTOIN 18:21 → F2W 20:19
PROVIDERS: ADMIT Internal Medicine; ATTEND Internal Medicine
DX: I11.0 Hypertensive heart disease with heart failure (principal); I50.22 Chronic systolic (congestive) heart failure; E87.1 Hypo-osmolality and hyponatremia; I42.9 Cardiomyopathy, unspecified; I44.7 Left bundle-branch block, unspecified; N28.9 Disorder of kidney and ureter, unspecified; E66.01 Morbid (severe) obesity due to excess calories; G47.33 Obstructive sleep apnea (adult) (pediatric); E03.9 Hypothyroidism, unspecified; B37.2 Candidiasis of skin and nail; Z95.0 Presence of cardiac pacemaker; Z85.3 Personal history of malignant neoplasm of breast; Z90.13 Acquired absence of bilateral breasts and nipples; Z87.891 Personal history of nicotine dependence
CPT/HCPCS: 84484-PO; 97110-GP; 97116-GP; 97161-GP; 97166-GO; 97530-GP; 97535-GO; C1751; C1769; C1777; C1882; C1887; C1898; C1900; G8978-GP-CK; G8979-GP-CI; G8987-GO-CK; G8988-GO-CJ; J0690; J1644; J1650; J1885; J1940; J2250; J2704; J2997; J3010; Q9957; Q9967

== ENCOUNTER 2018-08-02 05:29 | Inpatient (IN) | payer OTHER, MEDICARE ==
--- NOTE | 2018-08-02 05:42 | EDPHY ---
H & P Time Seen by Provider: 08/02/18 05:38 HPI/ROS: HPI CHIEF COMPLAINT: Fever, and worsening right leg wound. HISTORY OF PRESENT ILLNESS: 77-year-old female, presents emergency room from [facility] for concern of sepsis and fever. The patient apparently was at her private residence and had a fall today and 911 was called for a lift assist. She states she was too weak to get off the ground it was decided by the family that she go back to her living facility at [facility]. She went there yesterday and at some point they checked her blood pressure and got a low reading and was concerned that she had a fever was concerned that she may be septic. They made the decision to transport her earlier this morning to the emergency room. She now arrives to the emergency room and states she really does not have any complaints, however her right lower extremity is weeping edema with yellow discharge concerning for infection and erythematous. Past Medical History: Significant medical history for CHF with a low ejection fraction, obstructive sleep apnea, obesity, chronic lower extremity edema, nonischemic cardiomyopathy, hyponatremia Past Surgical History: No recent surgery. Social History: Denies drugs alcohol tobacco. Family History: Noncontributory ROS REVIEW OF SYSTEMS: 10 Systems were reviewed and negative with the exception of the elements mentioned in the history of present illness. Exam Constitutional obese, nontoxic triage nursing summary reviewed, vital signs reviewed, awake/alert. Vital signs stable and afebrile here Eyes normal conjunctivae and sclera, EOMI, PERRLA. HENT normal inspection, atraumatic, moist mucus membranes, no epistaxis, neck supple/ no meningismus, no raccoon eyes. Respiratory clear to auscultation bilaterally, normal breath sounds, no respiratory distress, no wheezing. Cardiovascular rate normal, regular rhythm, no murmur, no edema, distal pulses normal. Gastrointestinal soft, non-tender, no rebound, no guarding, normal bowel sounds, no distension, no pulsatile mass. Genitourinary no CVA tenderness. Musculoskeletal bilateral lower extremity significant edema, worse on the right leg than the left leg. Right lower extremity: Weeping edema, erythematous, warm, yellow discharge. Ulcerated lesions throughout the leg. no midline vertebral tenderness, full range of motion, no calf swelling, no tenderness of extremities, no meningismus, good pulses, neurovascularly intact. Skin pink, warm, & dry, no rash, skin atraumatic. Neurologic awake, alert and oriented x 3, AAOx3, moves all 4 extremities equally, motor intact, sensory intact, CN II-XII intact, normal cerebellar, normal vision, normal speech. Psychiatric normal mood/affect. Heme/Lymph/Immune no lymphadenopathy. Differential Diagnosis: Includes but is not limited to in a particular order sepsis, bacteremia, bloodstream infection, cellulitis, chronic leg wounds. Medical Decision Making: Plan for this patient IV establishment, hold IV fluids , check lactic acid, CBC, chemistry, chest x-ray, urinalysis, blood cultures. Plan for hospital admission. Re-evaluation: X-ray of the chest one view reviewed by myself. Shows cardiomegaly, AICD in appropriate position. No focal pneumonia visualized. Given the patient's right lower extremity redness, yellow discharge, ulcerations , weeping edema this is most likely the cause of her infection. Blood cultures have been obtained Lactic acid is less than 2. She does have an elevated white blood cell count systemically. Plan for hospital admission. I have ordered the patient cefazolin IV. I will ask the hospitalist service to admit her for worsening right lower extremity wounds right lower extremity cellulitis. The initial chemistry showed a potassium of 6.3. However this was EMS blood in this concern for hemolysis. Will send a 2nd chemistry. Patient will get a 500 cc fluid bolus. EKG will be obtained for hyperkalemia. EKG interpretation by me on record in [employer] system. Impression time of EKG 6:18 a.m., ventricularly paced. Without any signs of acute ischemia. Repeat chemistry shows improved potassium of 5.5. Patient is being gently hydrated this time. Patient be admitted to the hospitalist service Dr. Hansen has accepted. Source: Patient, EMS - Medical/Surgical History Hx Asthma: No Hx Chronic Respiratory Disease: Yes Hx Diabetes: No Hx Cardiac Disease: Yes Hx Renal Disease: No Hx Cirrhosis: No Hx Alcoholism: No Hx HIV/AIDS: No Hx Splenectomy or Spleen Trauma: No Other PMH: CHF with ejection fraction 30%, home oxygen, Graves disease, obesity , hypertension; apnea with cpap - Social History Smoking Status: Former smoker (stopped smoking in 21 years ago, smoked 1 ppd for about 40 years) Constitutional: Initial Vital Signs Temperature (C) 36.7 C 08/02/18 05:38 Heart Rate 98 08/02/18 05:38 Respiratory Rate 20 08/02/18 05:38 Blood Pressure 94/38 L 08/02/18 05:38 O2 Sat (%) 95 08/02/18 05:38 O2 Delivery Mode Nasal Cannula O2 (L/minute) 2 Allergies/Adverse Reactions: miconazole [From Neosporin AF] Allergy (Unknown, Verified 08/02/18 05:37) Unknown amoxicillin [From Augmentin] Allergy (Verified 08/02/18 05:37) clavulanic acid [From Augmentin] Allergy (Verified 08/02/18 05:37) Home Medications: Medication Instructions Recorded Gabapentin [Neurontin] 600 mg PO TID 03/27/10 Levothyroxine [Synthroid 137 mcg 137 mcg PO DAILY06 03/27/10 (*)] Aspirin EC [Aspirin EC 325 mg (*)] 325 mg PO DAILY 05/14/17 Bupropion HCl [Wellbutrin Xl] 300 mg PO DAILY 05/14/17 Carvedilol [Coreg (*)] 25 mg PO BIDMEAL 05/14/17 Multivitamins [Multivitamin (*)] 1 each PO DAILY 05/14/17 Pramipexole Di-HCl [Mirapex 1 mg 2 mg PO HS 05/14/17 (*)] Sacubitril/Valsartan 24/26Mg 1 tab PO BID 05/14/17 [Entresto 24 mg/26 mg (RX)] Spironolactone [Aldactone 25 MG 25 mg PO DAILY 05/14/17 (*)] Nitroglycerin [Nitrostat 0.4 mg 0.4 mg SL PRN PRN #30 btl 06/14/18 (*)] Acetaminophen [Tylenol ES 500 mg 1,000 mg PO TID 08/02/18 (*)] Hydrocortisone 2.5% 1 vanda TP BID 08/02/18 [Hydrocortisone 2.5% cream (*)] Loperamide HCl [Imodium 2 mg (*)] 2 mg PO Q8HRS PRN 08/02/18 Nystatin Powder [Mycostatin Powder 1 vanda TP BID 08/02/18 (RX)] Potassium Cl [Klor-Con 20 meq (*)] 20 meq PO DAILY 08/02/18 Torsemide [Demadex] 100 mg PO DAILY 08/02/18 guaiFENesin [Mucinex 600 MG (*)] 600 mg PO BID PRN 08/02/18 oxyCODONE IR [Oxycodone Ir (*)] 5 - 10 mg PO Q4HRS PRN 08/02/18 Medical Decision Making - Diagnostics Imaging Results: Imaging Impressions Chest X-Ray 08/02/18 05:37 Impression: 1. No pneumonia or effusion. 2. Chronic airways disease and mild cardiomegaly unchanged. Extremity Venous Study 08/02/18 10:17 Impression: 1. Nonspecific right groin lymph node. 2. No major deep venous thrombosis right leg. - Data Points Laboratory Results: Laboratory Results 08/02/18 05:30 08/02/18 06:25 Medications Given: Acetaminophen (Tylenol) 1,000 mg PO TID [facility] Stop: 01/29/19 15:59 Last Admin: 08/02/18 21:42 Dose: 1,000 mg Aspirin Buffered (Aspirin Ec) 325 mg PO DAILY [facility] Stop: 01/29/19 09:44 Last Admin: 08/02/18 09:54 Dose: 325 mg Bupropion HCl (Wellbutrin Xl) 300 mg PO DAILY [facility] Stop: 01/29/19 09:44 Last Admin: 08/02/18 09:53 Dose: 300 mg Carvedilol (Coreg) 6.25 mg PO BIDMEAL [facility] Stop: 01/29/19 17:59 Last Admin: 08/02/18 18:14 Dose: 6.25 mg Enoxaparin Sodium (Lovenox) 40 mg SC DAILY [facility] Stop: 01/29/19 09:29 Last Admin: 08/02/18 09:54 Dose: 40 mg Gabapentin (Neurontin) 600 mg PO TID [facility] Stop: 01/29/19 09:44 Last Admin: 08/02/18 21:41 Dose: 600 mg Cefazolin Sodium/Dextrose (Ancef) 100 mls @ 200 mls/hr IV Q8HRS VANDA PRN Reason: Protocol Stop: 09/01/18 13:59 Last Admin: 08/02/18 21:42 Dose: 100 mls Oxycodone HCl (Oxycodone Ir) 5 - 10 mg PO Q4HRS PRN PRN Reason: Pain, Breakthrough Stop: 08/12/18 09:22 Last Admin: 08/02/18 13:25 Dose: 10 mg Pramipexole Dihydrochloride (Mirapex) 2 mg PO HS VANDA Stop: 01/29/19 20:59 Last Admin: 08/02/18 21:41 Dose: 2 mg Discontinued Medications Fentanyl (Sublimaze) 50 mcg IVP EDNOW ONE Stop: 08/02/18 06:41 Last Admin: 08/02/18 06:41 Dose: 50 mcg Cefazolin Sodium/Dextrose (Ancef) 100 mls @ 200 mls/hr IV EDNOW ONE PRN Reason: Protocol Stop: 08/02/18 06:20 Last Admin: 08/02/18 06:13 Dose: 100 mls Sodium Chloride (Ns) 500 mls @ 0 mls/hr IV ONCE ONE PRN Reason: Wide Open Stop: 08/02/18 06:05 Last Admin: 08/02/18 06:07 Dose: 500 mls Departure - Departure Disposition: [facility] Acute Clinical Impression: Dehydration Cellulitis Qualifiers: Site of cellulitis: extremity Site of cellulitis of extremity: lower extremity Laterality: right Qualified Code(s): L03.115 - Cellulitis of right lower limb Condition: Fair
[2018-08-02 05:48] LABS: PLATELET COUNT 273 10^3/uL (150-400)
[2018-08-02] MEDS ORDERED: ceFAZolin 2 GM/DEXTROSE 100 ML IV ONE (05:51)
[2018-08-02 05:56] LABS: INR 1.14 (0.83-1.16); PROTIME(PATIENT) 14.8 SEC (12.0-15.0)
[2018-08-02] MEDS ORDERED: NS 500 ML IV ONE (06:04)
[2018-08-02] MEDS ORDERED: ACETAMINOPHEN 325 MG TAB PO PRN (06:31)
[2018-08-02] MEDS ORDERED: ONDANSETRON DISINTEGRATING 4 MG TAB PO PRN (06:31)
[2018-08-02] MEDS ORDERED: ONDANSETRON 4 MG/2 ML VIAL IVP PRN (06:31)
[2018-08-02] MEDS ORDERED: fentaNYL 100 MCG/2 ML INJ ONE (06:39)
[2018-08-02] MEDS ORDERED: fentaNYL 100 MCG/2 ML INJ IVP ONE (06:40)
--- NOTE | 2018-08-02 06:43 | PDGENHP ---
History and Physical - Chief Complaint Weakness - History of Present Illness 77 yo F w/ hx of NICM s/p AICD, morbid obesity, chronic venous stasis dermatitis , and CKD presents with generalized weakness and concern for infection. The patient was recently in a rehab facility. She returned home and suffered a minor fall where she could not get back up. As a result she was sent back to rehab. In rehab her BP was low/normal and she was noted to be febrile so she was sent to the [facility] ED. In our ED her BP remains borderline and her RLE is erythematous and warm. She is complaining of RLE pain and denies other infectious symptoms. Her laboratory work-up notable for leukocytosis and known CKD. She is being admitted for treatment of suspected cellulitis. Case discussed with ED physician Dr. Romero; records reviewed and summarized above. History Information - Allergies/Home Medication List Allergies/Adverse Reactions: miconazole [From Neosporin AF] Allergy (Unknown, Verified 08/02/18 05:37) Unknown amoxicillin [From Augmentin] Allergy (Verified 08/02/18 05:37) clavulanic acid [From Augmentin] Allergy (Verified 08/02/18 05:37) Home Medications: Gabapentin [Neurontin] 600 mg PO TID 03/27/10 [Last Taken 06/05/18 08:00] Levothyroxine [Synthroid 137 mcg (*)] 137 mcg PO DAILY06 03/27/10 [Last Taken ] Aspirin EC [Aspirin EC 325 mg (*)] 325 mg PO DAILY 05/14/17 [Last Taken 06/05/18 ] Bupropion HCl [Wellbutrin Xl] 300 mg PO DAILY 05/14/17 [Last Taken 06/05/18] Calcium Carbonate/Vitamin D3 [Oyster Shell Calcium-Vit D Tab] 1 tab PO DAILY 05/20 [Last Taken 05/13/17] Carvedilol [Coreg (*)] 25 mg PO BIDMEAL 05/14/17 [Last Taken 06/05/18 08:00] Herbals/Supplements -Info Only 1 ea PO DAILY 05/14/17 [Last Taken Unknown] Multivitamins [Multivitamin (*)] 1 each PO DAILY 05/14/17 [Last Taken 05/13/17] Pramipexole Di-HCl [Mirapex 1 mg (*)] 1 mg PO HS PRN 05/14/17 [Last Taken ] Sacubitril/Valsartan 24/26Mg [Entresto 24 mg/26 mg (RX)] 1 tab PO BID 05/14/17 [ Last Taken 06/05/18 08:00] Spironolactone [Aldactone 25 MG (*)] 25 mg PO DAILY 05/14/17 [Last Taken ] I have personally reviewed and updated: family history, medical history - Past Medical History cancer (breast cancer), CHF (systolic with EF of 30%), hypertension Additional medical history: diverticulitis. Graves disease and now hypothyroid. chronic venous stasis with chronic lower extremity wounds. obesity - Surgical History Reports: cancer surgery (bilateral mastectomy) - Family History Additional family history: Son has inguinal growth. Daughter has "heart problems" - Social History Smoking Status: Former smoker (stopped smoking in 21 years ago, smoked 1 ppd for about 40 years) Additional social history: has 2 children, lives with her son Review of Systems Review of Systems: ROS: 10pt was reviewed & negative except for what was stated in HPI & below Physical Exam Physical Exam: Temp Pulse Resp BP Pulse Ox 36.7 C 98 20 105/52 L 94 08/02/18 05:38 08/02/18 06:30 08/02/18 06:30 08/02/18 06:30 08/02/18 06:30 O2 (L/minute) 2 Constitutional: obese, uncomfortable Eyes: PERRL, anicteric sclera Ears, Nose, Mouth, Throat: moist mucous membranes, no oral mucosal ulcers Cardiovascular: regular rate and rhythym, systolic murmur Respiratory: no respiratory distress, clear to auscultation Gastrointestinal: normoactive bowel sounds, soft, non-tender abdomen Skin: warm, other (Erythema, fibrinous exudate from R arenas) Neurologic: AAOx3, CN II-XII Intact Psychiatric: interacting appropriately, not anxious Lab Data & Imaging Review 08/02/18 05:30 08/02/18 05:30 WBC 15.04 10^3/uL (3.80-9.50) H 08/02/18 05:30 RBC 3.59 10^6/uL (4.18-5.33) L 08/02/18 05:30 Hgb 10.7 g/dL (12.6-16.3) L 08/02/18 05:30 Hct 34.0 % (38.0-47.0) L 08/02/18 05:30 MCV 94.7 fL (81.5-99.8) 08/02/18 05:30 MCH 29.8 pg (27.9-34.1) 08/02/18 05:30 MCHC 31.5 g/dL (32.4-36.7) L 08/02/18 05:30 RDW 15.8 % (11.5-15.2) H 08/02/18 05:30 Plt Count 273 10^3/uL (150-400) 08/02/18 05:30 MPV 10.1 fL (8.7-11.7) 08/02/18 05:30 Neut % (Auto) 85.1 % (39.3-74.2) H 08/02/18 05:30 Lymph % (Auto) 3.0 % (15.0-45.0) L 08/02/18 05:30 [place] % (Auto) 5.5 % (4.5-13.0) 08/02/18 05:30 Eos % (Auto) 5.2 % (0.6-7.6) 08/02/18 05:30 Baso % (Auto) 0.5 % (0.3-1.7) 08/02/18 05:30 Nucleat RBC Rel Count 0.1 % (0.0-0.2) 08/02/18 05:30 Absolute Neuts (auto) 12.80 10^3/uL (1.70-6.50) H 08/02/18 05:30 Absolute Lymphs (auto) 0.45 10^3/uL (1.00-3.00) L 08/02/18 05:30 Absolute Monos (auto) 0.83 10^3/uL (0.30-0.80) H 08/02/18 05:30 Absolute Eos (auto) 0.78 10^3/uL (0.03-0.40) H 08/02/18 05:30 Absolute Basos (auto) 0.08 10^3/uL (0.02-0.10) 08/02/18 05:30 Absolute Nucleated RBC 0.02 10^3/uL (0-0.01) H 08/02/18 05:30 Immature Gran % 0.7 % (0.0-1.1) 08/02/18 05:30 Immature Gran # 0.11 10^3/uL (0.00-0.10) H 08/02/18 05:30 RBC/WBC/PLT Morphology TNP 08/02/18 05:30 Platelet Estimate TNP 08/02/18 05:30 PT 14.8 SEC (12.0-15.0) 08/02/18 05:30 INR 1.14 (0.83-1.16) 08/02/18 05:30 APTT 28.5 SEC (23.0-38.0) 08/02/18 05:30 VBG Lactic Acid 1.2 mmol/L (0.7-2.1) 08/02/18 05:50 Sodium 134 mEq/L (135-145) L 08/02/18 05:30 Potassium 6.3 mEq/L (3.5-5.2) H* 08/02/18 05:30 Chloride 107 mEq/L (97-110) 08/02/18 05:30 Carbon Dioxide 21 mEq/l (22-31) L 08/02/18 05:30 Anion Gap 6 mEq/L (6-14) 08/02/18 05:30 BUN 61 mg/dL (7-23) H 08/02/18 05:30 Creatinine 1.4 mg/dL (0.6-1.0) H 08/02/18 05:30 Estimated GFR 36 08/02/18 05:30 Glucose 109 mg/dL (70-100) H 08/02/18 05:30 Calcium 8.8 mg/dL (8.5-10.4) 08/02/18 05:30 NT-Pro-B Natriuret Pep 760 pg/mL (0-450) H 08/02/18 05:30 Visualized and Interpreted Chest x-ray results: Yes Chest X-Ray results: no infiltrate, other (AICD) Visualized and Interpreted EKG results: Yes EKG Interpretation: Positive for: other (V-paced) Assessment & Plan Assessment: 77 yo F w/ hx of NICM s/p AICD, morbid obesity, chronic venous stasis dermatitis , and CKD presents with generalized weakness and concern for RLE cellulitis. Plan: 1. RLE cellulitis - Presents with reported fever from SNF and WBC of 15k. Source is most likely RLE cellulitis overlying known venous stasis dermatitis. - Gentle fluid noting NICM - Cefazolin 2g IV q8h - Blood cultures pending - Wound care consult placed 2. Hypotension - SBP in the 80-90 range on arrival; improved to 100's after 500 mL NS. This may be due to overdiuresis with contribution from infection. Lactate is normal on admission, which is reassuring. - Gentle IVF PRN - Treat infection as above 3. NICM - Last EF 33%; s/p AICD. - Hold diuretics, Coreg, and Entresto initially noting hypotension, restart as indicated - Cardiac diet, monitor I/Os, daily weights 4. CKD - Stage III, serum creatinine at baseline. - Renally dose medications, avoid nephrotoxic agents 5. Hypothyroid - Continue LTX pending reconciliation 6. JENNA/OHS Diet - Cardiac Code - Full per MOST form Ppx - SQH Dispo - Admit under observation status
[2018-08-02] MEDS ORDERED: guaiFENesin 600 MG TAB.ER PO PRN (09:23)
[2018-08-02] MEDS: buPROPion XL 150 MG TAB PO SCH (09:53)
[2018-08-02] MEDS: ASPIRIN EC 325 MG TAB PO SCH (09:54)
[2018-08-02] MEDS: GABAPENTIN 300 MG CAP PO SCH ×3 (09:54→21:41)
[2018-08-02] MEDS: ENOXAPARIN 40 MG/0.4 ML SYR SC SCH (09:54)
[2018-08-02] MEDS: oxyCODONE IR 5 MG TAB PO PRN ×3 (09:56→23:25)
--- NOTE | 2018-08-02 10:30 | HOSPPROG ---
Hospitalist Progress Note Assessment/Plan: * RLE cellulitis - superimposed on known venous stasis -IV ancef -check US rule out DVT * Hyperkalemia - potassium 6.3 -now improved -hold Entresto, Spironolactone and KCl -cards consult to reconsider CHF med regimen * Rash - suspect drug rash -newest med is Demadex -hold - reconsider diuretic * Hypotension -holding meds * Chronic systolic CHF - EF 33% - s/p BiV ICD -cards to see - d/w Ness Aponte * Morbid obesity BMI 45 - with JENNA/OHS * Chronic respiratory failure due to above -baseline 2L * CKD -at baseline * Hyponatremia -fluid restrict Subjective: No new complaints. Rash has been worsening over 1-2 weeks per daughter Objective: Vital Signs Temp Pulse Resp BP Pulse Ox 36.9 C 69 18 102/69 95 08/02/18 07:25 08/02/18 07:25 08/02/18 07:25 08/02/18 07:25 08/02/18 07:25 Laboratory Results 08/02/18 06:25 08/01/18 08/02/18 08/03/18 05:59 05:59 05:59 Intake Total 500 Output Total 0 Balance 500 PT 14.8 SEC (12.0-15.0) 08/02/18 05:30 INR 1.14 (0.83-1.16) 08/02/18 05:30 CXR - negative EKG - paced - Physical Exam Constitutional: no apparent distress, appears nourished, not in pain Cardiovascular: regular rate and rhythym, no murmur, rub, or gallop Respiratory: no respiratory distress, no rales or rhonchi, clear to auscultation Gastrointestinal: normoactive bowel sounds, soft, non-tender abdomen, no palpable masses Skin: rash, other (chronic venous stasis with swelling, weeping and increased erythema to RLE) Musculoskeletal: full muscle strength, no muscle tenderness, normal joint ROM Neurologic: AAOx3, sensation intact bilaterally Psychiatric: interacting appropriately, not anxious, not encephalopathic, thought process linear ICD10 Worksheet Patient Problems: Problems Problem Status Onset Cellulitis Acute Dehydration Acute CHF (congestive heart failure) Acute Chronic Disease Mgmt/Transitional Care Acute Diverticulitis large intestine w/o perforation or abscess w/o bleeding Acute Shortness of breath Acute
--- NOTE | 2018-08-02 10:50 | ASMTCMCOM ---
CM Note CM Note Notes: Chart reviewed for discharge planning purposes. 77 year old female admitted with hypotension s/p fall at her home at [facility]. She was admitted through the ED with concerns of sepsis and leg wound. Therapy evaluations pending. CM to follow for needs. Plan: TBD Date Signed: 08/02/2018 10:49 AM Electronically Signed By:Hoa Valenzuela RN
--- NOTE | 2018-08-02 12:07 | PDMN ---
Medical Necessity Medical necessity: Pt meets IP criteria as of 08/02/2018 per and MCG M-70 ( cellulitis); est los > 2 mn for ongoing tx and management of cellulitis superimposed on known venous stasis in the setting of chronic systolic CHF with chronic O2 dependent respiratory failure and morbid obesity (BMI 45) as well as acute hyperkalemia and hyponatremia; requiring IV ABX, serial labs, medication management, cardiology consultation, wound care consultation, and PT/OT.
--- NOTE | 2018-08-02 12:53 | SOAPPROG ---
SOAP Progress Note Assessment/Plan: Assessment: CHF consultation performed and dictated. 77 y/o woman with multiple medical issues including: CAD with known [employer] EX[employer]ER of RCA, chronic ischemic systolic CHF with LVEF 33% s/p DATABASE ARCHITECT-D in 06/21, chronic morbid obesity, CRI, IDDM and chronic venous insufficiency admitted with near syncope, hypotension, fevers and concern for leg cellulitis. Clinically I wonder if her LVEF has improved with CHF meds and biventricular pacing and she is overdiuresed contributing to her tiredness, electrolyte and renal abnormalities and near syncope. REC: 1)restart Coreg to 6.25mg PO BID. 2)continue to hold Demadex, Aldactone and Entresto 3)echo this afternoon to reassess LVEF and RVEF 4)interrogate her AICD for any VT/Vfib or afib. 5)follow weight daily. Probably restart on some diuretics but at less dose soon. 08/02/18 12:48 Objective: Vital Signs Temp Pulse Resp BP Pulse Ox 36.8 C 98 17 142/49 H 96 08/02/18 10:56 08/02/18 10:56 08/02/18 10:56 08/02/18 10:56 08/02/18 10:56 08/01/18 08/02/18 08/03/18 05:59 05:59 05:59 Intake Total 1500 Output Total 200 Balance 1300 PT 14.8 SEC (12.0-15.0) 08/02/18 05:30 INR 1.14 (0.83-1.16) 08/02/18 05:30 ICD10 Worksheet Patient Problems: Problems Problem Status Onset Cellulitis Acute Dehydration Acute CHF (congestive heart failure) Acute Chronic Disease Mgmt/Transitional Care Acute Diverticulitis large intestine w/o perforation or abscess w/o bleeding Acute Shortness of breath Acute
[2018-08-02] MEDS ORDERED: HEPARIN 5,000 UNIT/0.5 ML INJ SC SCH (14:00)
[2018-08-02] MEDS: ceFAZolin 2 GM/DEXTROSE 100 ML IV SCH ×2 (14:32→21:42)
--- NOTE | 2018-08-02 14:56 | WOCRNPDOC ---
SANDEEP Advanced Assessment Note - Skin Integrity Problem, Advanced Assess Left Lower Leg Dressing Type: Open to Air Devorah Wound Tissue: Erythema, Rubor (non dependent) Pulse Location & Description: 1+ bilateral DP Extremity Temperature: Warm Skin Integrity Problem Comment: Leg does not have any open wounds at this time. Erythematic along gaiter area to metatarsal heads. Cluster of papules along anterior proximal lower leg that seem to be an extension of the rash the patient has on her back, arms, torso and thighs. Non dependent rubor around malleolus. Dried skin flaking off much of the lower leg. The flaking skin appears to have zinc tint to it. Patient reports having had unna boots placed bilaterally at outpatient [facility] recently without any improvement. Patient's daughter gave wound RN extensive history of patient's wounds which stemmed from a bone removal in her foot and the compression that was initiated after the removal last year. Then a few months ago the patient became quite edematous due to CHF and began weeping large amounts of fluid from her lower legs. Per the daughter the wounds have continued to worsen since then. Discussed patient's care with Humph[facility] from [facility]. Per her report homecare nursing has found patient to be non compliant with both wound care and PT/OT recc's at home, as well as there being some other cleanliness/care issues. Patient has declined services including [facility]. There is no record of the patient having any MOON's done to ensure there is no arterial component that may be contributing to the wounds worsening with compression, so if this could be done during inpt stay it would be helpful. Felix ORTIZ in room for care. Right Lower Leg Dressing Type: Open to Air Exudate Amount: Minimal Exudate Characteristic(s): Serous Devorah Wound Tissue: Erythema, Painful/Tender Site Measurement - Head-to-Toe Length X Width X Depth (cm): 28x35 (entire circumference of right lower leg)x0.2 Pulse Location & Description: 1+ DP Extremity Temperature: Warm Skin Integrity Problem Comment: Flushed leg with ns. There was some xeroform with ABD adhered to patient's calf. This had a greenish tinged drainage similar to that caused by pseudomonas. Culture has been sent. Will not compress legs while patient is inpatient. Will initiate BID 1/4 strength Dakins dressing changes for it's bacteriacidal and mechanical debridement properties. Reported findings to Dr. Crenshaw via [facility]. Wound care will follow.
[2018-08-02] MEDS ORDERED: SODIUM HYPOCHLORITE (DAKINS 1/4 STR) 473 ML BTL TP PRN (16:13)
--- NOTE | 2018-08-02 16:21 | ECHO ---
[email or web address] [address] [address] Main: [phone] Fax: Transthoracic Echocardiogram Name: KI ARIZA MR#: [id number] Study Date: 08/02/2018 Study Time: 01:14 PM Date of : 1940 Age: 77 year(s) Height: 154.9 cm (61 in.) Weight: 109.32 kg (241 lb.) BSA: 2.04 m2 Gender: Female Examination: Echo Indication: CHF now s/p business development executive-d and near syncope/reassess LVEF and RVEF Image Quality: Technically Difficult Contrast: Requested by: Avila Okeefe BP: 142 mmHg/49 mmHg Heart Rate: Rhythm: Indication: CHF now s/p business development executive-d and near syncope/reassess LVEF and RVEF Procedure Staff Historic Site Administrator: Aida Perez [facility] Reading Physician: Haile Christensen MD Requesting Provider: Conclusions: Mildly to moderately dilated left ventricle. The ejection fraction is estimated to be 30-35 %. Diastolic dysfunction is present. . There is a pacemaker lead noted in the right ventricle. The left atrium is mildly dilated. There is mild thickening of the mitral valve leaflets. Mild to moderate mitral regurgitation. Mild tricuspid regurgitation is present. RVSP is 41mmHG.. Trivial anterior pericardial effusion. No signficant change compared to 06/06/2018. Measurements: Chambers Valvular Assessment AV/MV Valvular Assessment TV/PV Normal Normal Normal Name Value Range Name Value Range Name Value Range Ao Mary Jane (MM): 2.9 cm (2.2 cm-3.7 AV Vmax: 1.70 m/s (1 m/s-1.7 TR Vmax: 3.01 mm/s ( - ) cm) m/s) TR PGmax: 36 mmHg ( - ) IVSd (2D): 0.8 cm (0.6 cm-1.1 AV meanP mmHg ( - ) syst. PAP: 41 mmHg ( - ) cm) INDIA (VTI): 1.5 cm ( - ) LVDd (2D): 5.8 cm (3.9 cm-5.3 MV E Vmax: 1.04 m/s ( - ) cm) MV A Vmax: 1.60 m/s ( - ) LVPWd (2D): 0.8 cm ( - ) MV E/A: 0.65 ( - ) LVOTd 1.9 cm 1.9 cm mm MV meanP mmHg ( - ) EF Range: 30-35 % MVA (Vmax): 2.1 m/s ( - ) Continued Measurements: Chambers Valvular Assessment AV/MV Valvular Assessment TV/PV Patient: KI ARIZA Study Date: 08/02/2018 Page 1 of 2 01:14 PM Name Value Name Value Name Value LADs: 4.5 cm MV Annulus: 2.9 cm CVP (est.): 5 mmHg LADs Lon.0 cm MV E' Septal: 0.07 m/s LA Area: 26.8 cm2 MV E/E' Septal: 14.10 MV E/E' Lateral: 16.90 MV VTI: 25.20 cm Additional Vessels Name Value Ao Ascendin.9 cm Findings: Left Ventricle: Mildly to moderately dilated left ventricle. No LV hypertrophy. The ejection fraction is estimated to be 30-35 %. Diastolic dysfunction is present. . Unable to assess regional wall motion abnormalities. Right Ventricle: Normal size right ventricle. Normal RV function. There is a pacemaker lead noted in the right ventricle. Left Atrium: The left atrium is mildly dilated. Right Atrium: The right atrium is normal in size. Mitral Valve: There is mild thickening of the mitral valve leaflets. Mild to moderate mitral regurgitation. Aortic Valve: The aortic valve is normal in appearance and function. Tricuspid Valve: The tricuspid valve is normal in appearance and function. Mild tricuspid regurgitation is present. The pulmonary artery pressure is mildly increased. RVSP is 41mmHG.. Pulmonic Valve: Pulmonary valve not well visualized. Aorta: The aorta is normal. Pericardium: Trivial anterior pericardial effusion. There is pericardial fat. Exam Comments: Pt flat for echo (red hot painful legs). (No Signature Object) Patient: KI ARIZA Study Date: 08/02/2018 Page 2 of 2 01:14 PM [id number]
--- NOTE | 2018-08-02 17:19 | GCON ---
[f rep st] CONSULTATION CONGESTIVE HEART FAILURE CONSULT DATE OF CONSULTATION: 08/02/2018 REASON FOR CONSULTATION: Evaluate woman with near syncope, weakness, fatigue, and chronic severe leg edema. HISTORY OF PRESENT ILLNESS: The patient is a 77-year-old woman with multiple medical problems. From a heart standpoint, she has coronary artery disease with a known chronic total RCA and chronic ische armin systolic heart failure with an LVEF of 33%, and a biventricular AICD placed in June 2018 with a chronic left bundle branch block. Her last echocardiogram in June 2018 demonstrated an LVEF o f 33%. A left and right heart catheterization in June 2018 demonstrated 100% occluded right venkata nary artery, and mild to moderate LAD and left circumflex disease with an LVEDP of 32. Her mean RA w as 21, PA 52/23 with a mean pulmonary artery pressure of 37, and a mean pulmonary capillary wedge pre ssure of 21. She also has severe chronic venous insufficiency with weeping edema in [facility]. S he was brought in from her senior care facility with near syncope, hypotension, and fevers with c oncern for cellulitis. Her weight is down 7 pounds. She denies chest pain, PND, or syncope. PAST MEDICAL HISTORY: Chronic morbid obesity, chronic ischemic systolic heart failure with an LVEF o f 33%, chronic renal insufficiency, previous breast cancer status post bilateral mastectomy, chronic venous insufficiency, coronary artery disease as per HPI, diabetes mellitus, and hypothyroidism. PAST SURGICAL HISTORY: Bilateral mastectomies and biventricular AICD. HOME MEDICATIONS: Aspirin 325 mg per day, Neurontin 600 mg three times daily, Wellbutrin XL 300 mg d aily, Coreg 25 mg twice daily, Entresto 24/26 mg twice daily, Aldactone 25 mg per day, and Demadex 10 0 mg per day. ALLERGIES: As per documentation. SOCIAL HISTORY: The patient denies tobacco or excessive alcohol intake. FAMILY HISTORY: Positive for coronary artery disease. REVIEW OF SYSTEMS: The patient reports no GI bleed symptoms such as hematemesis, melena, or bright r ed blood per rectum. She has no TIA or CVA symptoms. Rest of 10-point review of systems is negative . PHYSICAL EXAM: VITAL SIGNS: Weight 109.3 kg, pulse 98, blood pressure 142/49, respirations 20, and on 2 L/minute 96%. GENERAL: A morbidly obese woman in no acute distress without chest pain or using accessory respiratory muscles. EYES: Pupils equal and reactive to light. ENT: Oral mucosa with no cyanosis. NECK: Jugular venous pressure to 7 cm. Carotid pulses 2+ bilaterally with no obvious br uits. No thyromegaly noted. LUNGS: Clear to auscultation bilaterally without rales, rhonchi, or wh eezing. HEART: Normal PMI. Regular rate and rhythm with a 1/6 nonradiating systolic murmur and no S3. ABDOMEN: Soft and nontender. No guarding or rebound. No obvious ascites. EXTREMITIES: 1+ pe ripheral pulses including femoral and pedal pulses, 2+ to 3+ edema to the level just below the knees. MUSCULOSKELETAL: No scoliosis or nuchal rigidity. SKIN: Erythema and redness over the lower extr emities with no obvious cyanosis. NEUROLOGICAL: Normal affect and mood. LABS: White count 15.0, hematocrit 34, platelets 273,000, and MCV 95. Sodium 129, potassium 5.5, ch loride 100, bicarbonate 24, BUN 55, creatinine 1.1, and glucose 371. NT proBNP level 760. INR 1.14. IMPRESSION: A 77-year-old woman with multiple medical problems. From a heart standpoint, she has co ronary artery disease with known chronically 100% occluded right coronary artery and chronic ischemic systolic heart failure with a left ventricular ejection fraction of 33%, and an automatic implantabl e cardioverter-defibrillator in place with class 3 [place] [employer] symptoms. I wonder if her left ventricular function has gotten better with congestive heart failure medications and cardiac resynchronization therapy pacing. She may be over diuresed now contributing to her weakness and hyp otension. I think her edema is in large part from venous insufficiency, not related to volume overlo ad. RECOMMENDATIONS: 1. Agree with stopping Entresto, Aldactone, and Demadex for now. 2. Would place on Coreg 6.25 mg twice daily. 3. We will repeat an echocardiogram to see if her LV function has improved and in particular look at her RV function. 4. I suspect we will probably need to restart on some degree of Demadex and Aldactone, but could be at a very lower dose. 5. Agree with wound care as I think her leg edema issues are out of proportion to her heart failure. Thank you for allowing me to participate in the care of this patient. I will follow along closely wi th you during her hospitalization. /[id number]/MODL
--- NOTE | 2018-08-02 18:12 | CPEKG ---
Test Reason : OPEN Blood Pressure : / mmHG Vent. Rate : 099 BPM Atrial Rate : 097 BPM P-R Int : 104 ms QRS Dur : 181 ms QT Int : 407 ms P-R-T Axes : 080 176 017 degrees QTc Int : 523 ms Ventricular-paced complexes Confirmed by Marissa Vega ([id number]) on 08/02/2018 6:11:39 PM Referred By: Xavier Allan Confirmed By:Marissa Vega
[2018-08-02] MEDS: CARVEDILOL 6.25 MG TAB PO SCH (18:14)
[2018-08-02] MEDS: ACETAMINOPHEN 500 MG TAB PO SCH ×2 (18:14→21:42)
[2018-08-02] MEDS: PRAMIPEXOLE 1 MG TAB PO SCH (21:41)
[2018-08-02] MEDS: HYDROCORTISONE 2.5% 30 GM CRTUBE TP SCH (22:48)
[2018-08-02] MEDS: NYSTATIN POWDER 15 GM BTL TP SCH (22:48)
[2018-08-02] MEDS: SODIUM HYPOCHLORITE (DAKINS 1/4 STR) 473 ML BTL TP SCH (22:49)
[2018-08-03] MEDS: LEVOTHYROXINE 137 MCG TAB PO SCH (04:42)
[2018-08-03] MEDS: ceFAZolin 2 GM/DEXTROSE 100 ML IV SCH (04:47)
[2018-08-03 06:09] LABS: PLATELET COUNT 225 10^3/uL (150-400)
[2018-08-03] MEDS: ASPIRIN EC 325 MG TAB PO SCH (09:06)
[2018-08-03] MEDS: CARVEDILOL 6.25 MG TAB PO SCH ×2 (09:06→18:15)
[2018-08-03] MEDS: ENOXAPARIN 40 MG/0.4 ML SYR SC SCH ×2 (09:06→21:49)
[2018-08-03] MEDS: GABAPENTIN 300 MG CAP PO SCH ×3 (09:06→21:49)
[2018-08-03] MEDS: buPROPion XL 150 MG TAB PO SCH (09:06)
[2018-08-03] MEDS: ACETAMINOPHEN 500 MG TAB PO SCH ×3 (09:10→21:50)
[2018-08-03] MEDS: NYSTATIN POWDER 15 GM BTL TP SCH ×2 (09:11→21:49)
[2018-08-03] MEDS: SODIUM HYPOCHLORITE (DAKINS 1/4 STR) 473 ML BTL TP SCH ×2 (09:12→21:54)
[2018-08-03] MEDS: HYDROCORTISONE 2.5% 30 GM CRTUBE TP SCH ×2 (09:12→21:49)
--- NOTE | 2018-08-03 11:16 | SOAPPROG ---
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 AICD checked and normal function with no arrhythmias. Echo shows LVEF still 33% with normal RVEF. She feels a little more energy and stable BP. PLAN: 1)start Ethacrynic Acid 25mg BID 2)rest of meds without changes. No Entresto or Aldactone yet. 3)AM BMP 08/03/18 11:13 Subjective: overall feels a little stronger. REESE at 10ft. Denies CP, near syncope, palpitations or PND. Objective: Vital Signs Temp Pulse Resp BP Pulse Ox 36.7 C 91 16 114/47 L 99 08/03/18 08:00 08/03/18 08:00 08/03/18 08:00 08/03/18 08:00 08/03/18 08:00 Microbiology 08/02/18 11:25 Gram Stain - Final Leg - Swab Laboratory Results 08/03/18 05:50 08/03/18 05:50 08/02/18 08/03/18 08/04/18 05:59 05:59 05:59 Intake Total 2090 Output Total 950 400 Balance 1140 -400 PT 14.8 SEC (12.0-15.0) 08/02/18 05:30 INR 1.14 (0.83-1.16) 08/02/18 05:30 Physical Exam - Physical Exam General Appearance: obese EENT: PERRL/EOMI Neck: non-tender Respiratory: lungs clear Cardiac/Chest: regular rate, rhythm, systolic murmur, No gallop (1/6 LUCERO) Peripheral Pulses: 1+: femoral (R), femoral (L), dorsalis-pedis (R), dorsalis- pedis (L), 2+: carotid (R), carotid (L) Abdomen: non-tender, No guarding, No ascites Skin: warm/dry Extremities: pedal edema Neuro/Psych: alert ICD10 Worksheet Patient Problems: Problems Problem Status Onset Cellulitis Acute Dehydration Acute CHF (congestive heart failure) Acute Chronic Disease Mgmt/Transitional Care Acute Diverticulitis large intestine w/o perforation or abscess w/o bleeding Acute Shortness of breath Acute
[2018-08-03] MEDS: ETHACRYNIC ACID 25 MG TAB PO SCH ×2 (12:17→21:54)
[2018-08-03] MEDS ORDERED: IOHEXOL 300 mgI/ML (OMNIPAQUE) 150 ML BTL IV ONE (14:18)
[2018-08-03] MEDS: MEROPENEM 1 GM in NS 100 ML IV SCH (14:56)
[2018-08-03] MEDS: oxyCODONE IR 5 MG TAB PO PRN ×2 (14:56→21:51)
--- NOTE | 2018-08-03 16:59 | HOSPPROG ---
Hospitalist Progress Note Assessment/Plan: * RLE cellulitis - superimposed on known venous stasis - purulent/malodorous -Non-lactose fermenting GNR on culture - change to IV meropenum -consult ID -assess for PVD -failed attempt at MOON due to wound -check CTA LE with runoff * Hyperkalemia - potassium 6.3 -now improved -hold Entresto, Spironolactone and KCl -cards consult to reconsider CHF med regimen * Rash - suspect drug rash -newest med is Demadex -now on Ethacrynic acid * Hypotension -holding meds * Chronic systolic CHF - EF 33% - s/p BiV ICD -Dr. Okeefe following * CAD - known 100% occluded RCA -check lipids - likely needs statin * Morbid obesity BMI 45 - with JENNA/OHS * Chronic respiratory failure due to above -baseline 2L * CKD -at baseline * Hyponatremia -fluid restrict Subjective: No new complaints Objective: Vital Signs Temp Pulse Resp BP Pulse Ox 36.7 C 100 15 118/49 L 97 08/03/18 16:00 08/03/18 16:00 08/03/18 16:00 08/03/18 16:00 08/03/18 16:00 Microbiology 08/02/18 11:25 Gram Stain - Final Leg - Swab Laboratory Results 08/03/18 05:50 08/03/18 05:50 08/02/18 08/03/18 08/04/18 05:59 05:59 05:59 Intake Total 2090 Output Total 950 650 Balance 1140 -650 PT 14.8 SEC (12.0-15.0) 08/02/18 05:30 INR 1.14 (0.83-1.16) 08/02/18 05:30 - Physical Exam Constitutional: no apparent distress, appears nourished, not in pain Cardiovascular: regular rate and rhythym, no murmur, rub, or gallop Respiratory: no respiratory distress, no rales or rhonchi, clear to auscultation Gastrointestinal: normoactive bowel sounds, soft, non-tender abdomen, no palpable masses Skin: warm, erythema, other (skin breakdown with oozing purulent material, maloderous) Neurologic: AAOx3, sensation intact bilaterally Psychiatric: interacting appropriately, not anxious, not encephalopathic, thought process linear ICD10 Worksheet Patient Problems: Problems Problem Status Onset Cellulitis Acute Dehydration Acute CHF (congestive heart failure) Acute Chronic Disease Mgmt/Transitional Care Acute Diverticulitis large intestine w/o perforation or abscess w/o bleeding Acute Shortness of breath Acute
--- NOTE | 2018-08-03 17:19 | ASMTCMCOM ---
CM Note CM Note Notes: CM met with pt. at this time PT/OT are recommending SNF. Pt was agreeable for CM to submit a referral to [facility]. CM to follow. Plan: SNF. Date Signed: 08/03/2018 05:18 PM Electronically Signed By:CARLITO Dawson
[2018-08-03] MEDS: PRAMIPEXOLE 1 MG TAB PO SCH (21:50)
[2018-08-04] MEDS: MEROPENEM 1 GM in NS 100 ML IV SCH ×2 (01:47→14:34)
[2018-08-04] MEDS: oxyCODONE IR 5 MG TAB PO PRN ×4 (01:47→22:39)
[2018-08-04] MEDS: LEVOTHYROXINE 137 MCG TAB PO SCH (06:28)
[2018-08-04] MEDS: ACETAMINOPHEN 500 MG TAB PO SCH ×3 (06:28→22:42)
--- NOTE | 2018-08-04 07:59 | SOAPPROG ---
SOAP Progress Note Assessment/Plan: Assessment: 77 y/o woman with multiple medical issues including: CAD with known [employer] of RCA, chronic ischemic systolic CHF with LVEF 33% s/p HEAD PORTER-D in 06/21, chronic morbid obesity, CRI, IDDM and chronic venous insufficiency admitted with near syncope, hypotension, fevers and concern for leg cellulitis. AICD checked and normal function with no arrhythmias. Echo shows LVEF still 33% with normal RVEF. She feels a little more energy and stable BP. PLAN: 1)increase Coreg to 12.5mg PO BID 2)rest of meds without changes. 3)once serum K normalizes and okay renal function, will restart Entresto 24/ 26mg PO BID later this weekend. 4)daily BMP. 5)continue IV ABX for cellulitis and ID consult. 08/04/18 07:56 Subjective: feels stronger. Pain and throbbing in legs better but still there. Denies CP, near syncope, palpitations or PND. Ambulated around room with assistance. Objective: Vital Signs Temp Pulse Resp BP Pulse Ox 36.6 C 90 18 134/59 H 96 08/04/18 04:00 08/04/18 04:00 08/04/18 04:00 08/04/18 04:00 08/04/18 04:00 Microbiology 08/02/18 11:25 Gram Stain - Final Leg - Swab Laboratory Results 08/03/18 05:50 08/03/18 05:50 08/03/18 08/04/18 08/05/18 05:59 05:59 05:59 Intake Total 2090 1390 Output Total 950 1250 Balance 1140 140 PT 14.8 SEC (12.0-15.0) 08/02/18 05:30 INR 1.14 (0.83-1.16) 08/02/18 05:30 Physical Exam - Physical Exam General Appearance: alert, obese EENT: PERRL/EOMI Neck: non-tender Respiratory: chest non-tender, lungs clear Cardiac/Chest: regular rate, rhythm, systolic murmur, No JVD Peripheral Pulses: 1+: femoral (R), femoral (L), dorsalis-pedis (R), dorsalis- pedis (L), 2+: carotid (R), carotid (L) Abdomen: non-tender, No guarding, No rebound, No ascites Skin: warm/dry Extremities: pedal edema Neuro/Psych: oriented x 3 ICD10 Worksheet Patient Problems: Problems Problem Status Onset Cellulitis Acute Dehydration Acute CHF (congestive heart failure) Acute Chronic Disease Mgmt/Transitional Care Acute Diverticulitis large intestine w/o perforation or abscess w/o bleeding Acute Shortness of breath Acute
[2018-08-04] MEDS: HYDROCORTISONE 2.5% 30 GM CRTUBE TP SCH ×2 (09:00→22:43)
[2018-08-04] MEDS: GABAPENTIN 300 MG CAP PO SCH ×3 (09:22→22:40)
[2018-08-04] MEDS: ASPIRIN EC 325 MG TAB PO SCH (09:22)
[2018-08-04] MEDS: buPROPion XL 150 MG TAB PO SCH (09:22)
[2018-08-04] MEDS: ATORVASTATIN CALCIUM 40 MG TAB PO SCH ×2 (09:22→15:23)
[2018-08-04] MEDS: ETHACRYNIC ACID 25 MG TAB PO SCH ×2 (09:22→22:50)
[2018-08-04] MEDS: ENOXAPARIN 40 MG/0.4 ML SYR SC SCH ×2 (09:22→22:42)
[2018-08-04] MEDS: CARVEDILOL 25 MG TAB PO SCH ×2 (09:23→18:11)
[2018-08-04] MEDS ORDERED: ALTEPLASE 2 MG VIAL IVP PRN (09:53)
--- NOTE | 2018-08-04 09:58 | HOSPPROG ---
Hospitalist Progress Note Assessment/Plan: #MRSA/Pseudomonas RLE cellulitis - superimposed on known venous stasis -IV meropenum, Daptomycin -CTA legs without PAD * Hyperkalemia - now resolved -now improved -hold Entresto, Spironolactone and KCl -cards consult to reconsider CHF med regimen * Rash - suspect drug rash -newest med is Demadex, now on Ethacrynic acid. PRN hydroxyzine * Hypotension: resolved. Resuming BP meds slowly * Chronic systolic CHF - EF 33% - s/p BiV ICD -Dr. Okeefe following. Coreg 12.5 BID, re-add Entresto this weekend. Follow BMP * CAD - known 100% occluded RCA. Hold statin while on Dapto * Morbid obesity BMI 45 - with JENNA/OHS * Chronic respiratory failure due to above -baseline 2L * CKD -at baseline * Hyponatremia: fluid restrict #Cardiac diet #DVT ppx: Lovenox Disp: inpatient admission for IV abx, cardiac med titration Subjective: itching all over Objective: Vital Signs Temp Pulse Resp BP Pulse Ox 36.6 C 85 17 122/51 H 99 08/04/18 08:00 08/04/18 09:23 08/04/18 08:00 08/04/18 09:23 08/04/18 08:00 Microbiology 08/02/18 11:25 Gram Stain - Final Leg - Swab Laboratory Results 08/03/18 05:50 08/03/18 05:50 08/03/18 08/04/18 08/05/18 05:59 05:59 05:59 Intake Total 2090 1390 300 Output Total 950 1250 Balance 1140 140 300 PT 14.8 SEC (12.0-15.0) 08/02/18 05:30 INR 1.14 (0.83-1.16) 08/02/18 05:30 - Time Spent With Patient Time Spent with Patient: greater than 35 minutes Time Spent with Patient: Greater than 35 minutes spent on this patients care, greater than 50% of time spent counseling, educating, and coordinating care regarding the above mentioned plan. - Physical Exam Constitutional: obese Eyes: PERRL Ears, Nose, Mouth, Throat: moist mucous membranes Cardiovascular: regular rate and rhythym, edema (+2 LE edema) Respiratory: no respiratory distress Gastrointestinal: normoactive bowel sounds Skin: rash (diffuse maculopapular rash over trunk and extremities) Musculoskeletal: other (cellulitis right leg) Neurologic: AAOx3, CN II-XII Intact Psychiatric: interacting appropriately ICD10 Worksheet Patient Problems: Problems Problem Status Onset Cellulitis Acute Dehydration Acute CHF (congestive heart failure) Acute Chronic Disease Mgmt/Transitional Care Acute Diverticulitis large intestine w/o perforation or abscess w/o bleeding Acute Shortness of breath Acute
[2018-08-04] MEDS: NYSTATIN POWDER 15 GM BTL TP SCH ×2 (12:05→22:42)
[2018-08-04] MEDS: SODIUM HYPOCHLORITE (DAKINS 1/4 STR) 473 ML BTL TP SCH ×2 (12:05→22:44)
[2018-08-04] MEDS ORDERED: diphenhydrAMINE 25 MG CAP PO PRN (12:18)
[2018-08-04] MEDS: hydrOXYzine HCL 25 MG TAB PO PRN ×2 (13:16→22:41)
--- NOTE | 2018-08-04 13:57 | PCMIDPN ---
Assessment/Plan: Assessment: Bilateral lower extremity edema. Secondary to poorly compensated congestive heart failure. Patient has a right lower extremity however that is intensely red and edematous. This is consistent with acute soft tissue infection. Cultures of the wound have shown Pseudomonas, Proteus and MRSA. Currently the patient is on meropenem which is adequate for the Pseudomonas and Proteus however does not cover MRSA. Will add daptomycin IV Q 24 hr but given her borderline creatinine clearance and general poor health will dose at 4 milligrams/kilogram. Plan: 1. Continue IV meropenem. 2. Start daptomycin 400 mg IV Q 24 hr. 3. Follow appearance of right lower extremity. 4. Will hold her atorvastatin while dosing daptomycin. 08/04/18 13:57 Subjective: Patient is resting in her hospital bed. Daughter is in the room. She notes that her right lower extremity looks about the same as it did when she was admitted. She has no new complaints. She notes that her rash over her back and upper extremities has been present for around 1 month. It precedes any antibiotics. Objective: Meropenem # 2 Vital Signs Temp Pulse Resp BP Pulse Ox 36.6 C 85 17 122/51 H 99 08/04/18 08:00 08/04/18 09:23 08/04/18 08:00 08/04/18 09:23 08/04/18 08:00 Microbiology 08/02/18 11:25 Gram Stain - Final Leg - Swab Laboratory Results 08/03/18 05:50 08/04/18 12:10 08/03/18 08/04/18 08/05/18 05:59 05:59 05:59 Intake Total 2090 1390 300 Output Total 950 1250 Balance 1140 140 300 - Physical Exam General Appearance: WD/WN, alert, obese, non-toxic Respiratory: lungs clear, normal breath sounds, No respiratory distress Cardiac/Chest: regular rate, rhythm, No tachycardia Extremities: pedal edema, inflammation, erythema (Right lower extremity), No non -tender, No normal inspection Skin: normal color, warm/dry, rash (Over back and shoulders and bilateral upper extremities.) Neuro/Psych: alert, normal mood/affect, oriented x 3 ICD10 Worksheet Patient Problems: Problems Problem Status Onset Cellulitis Acute Dehydration Acute CHF (congestive heart failure) Acute Chronic Disease Mgmt/Transitional Care Acute Diverticulitis large intestine w/o perforation or abscess w/o bleeding Acute Shortness of breath Acute
--- NOTE | 2018-08-04 14:39 | ASMTCMCOM ---
CM Note CM Note Notes: 08/04/2018 Case Management Note Discussed d/c plan with pt, son Asher [phone] and daughter Aida MEDRANO [phone]. Pt was at [facility] for approximately 2 hours before admission to [facility]. Pt agreeable to return. Faxed updates to [facility]. Onsite conversation with Africa velazquez from [facility]. Accepted pt for return. Discussed with RN. Anticipating d/c early next week. Case Management d/c poc: [facility] rehab. Case Management to follow. Date Signed: 08/04/2018 02:38 PM Electronically Signed By:Gosia Xiong RN
--- NOTE | 2018-08-04 15:13 | WOCRNPDOC ---
WOCRN Advanced Assessment Note - Skin Integrity Problem, Advanced Assess Right Lower Leg Dressing Type: ABD Pad, Gauze, Kerlix Dressing Description: Intact, Shadowed Exudate Amount: Minimal Exudate Characteristic(s): Serous Integumentary Issue Intervention: Dressing Changed Devorah Wound Tissue: Erythema (bright beet red extending from gaiter area to metatarsal heads.) Wound Bed Constitution: Red/Export - Non Granular Tissue (80%), Adhered Slough (20 %) Wound Edges: Attached, Irregular Skin Integrity Problem Comment: Wound is much duct cleaner than previous assessment two days ago and much of the skin/loose slough has been debrided with the dressing changes. Patient's leg is also much less swollen. The erythema has not changed/improved much since the first assessment. Plan to continue 1/4 strength dakins moist to dry dressing changes BID over the weekend and will reassess Tuesday. ANGEL carver in room and assissted with care. Patient's daughter in room. All questions answered.
[2018-08-04] MEDS ORDERED: oxyCODONE IR 5 MG TAB PO PRN (15:30)
[2018-08-04] MEDS: DAPTOmycin 400 MG in NS 100 ML IV SCH (15:54)
[2018-08-04 17:14] LABS: CREATINE KINASE 48 IU/L (0-156)
[2018-08-04] MEDS: PRAMIPEXOLE 1 MG TAB PO SCH (22:42)
[2018-08-05] MEDS: MEROPENEM 1 GM in NS 100 ML IV SCH ×2 (02:24→13:44)
[2018-08-05] MEDS: hydrOXYzine HCL 25 MG TAB PO PRN (05:51)
[2018-08-05] MEDS: LEVOTHYROXINE 137 MCG TAB PO SCH (05:51)
[2018-08-05] MEDS: DAPTOmycin 400 MG in NS 100 ML IV SCH (09:46)
--- NOTE | 2018-08-05 09:46 | SOAPPROG ---
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 AICD checked and normal function with no arrhythmias. Echo shows LVEF still 33% with normal RVEF. She feels a little more energy and stable BP. PLAN: 1) continue current cardiac meds 2)rest of meds without changes. 3) if patient has stable potassium and creatinine in on Tuesday will restart Entresto. 4)daily BMP. 5)continue IV ABX for cellulitis and ID consult. 08/04/18 07:56 Plan: Increase activity as tolerated and allowed by nursing service. 08/05/18 09:45 Subjective: Patient up in chair feeling better today no cardiovascular complaints. Objective: Vital Signs Temp Pulse Resp BP Pulse Ox 37.2 C 95 12 136/61 H 97 08/05/18 08:43 08/05/18 08:43 08/05/18 08:43 08/05/18 08:43 08/05/18 08:43 Microbiology 08/02/18 11:25 Gram Stain - Final Leg - Swab Wound Culture - Final Pseudomonas Aeruginosa Proteus Mirabilis Staphylococcus Aureus Aerococcus Viridans Laboratory Results 08/03/18 05:50 08/05/18 04:00 08/04/18 08/05/18 08/06/18 05:59 05:59 05:59 Intake Total 1390 1680 Output Total 1250 600 Balance 140 1080 PT 14.8 SEC (12.0-15.0) 08/02/18 05:30 INR 1.14 (0.83-1.16) 08/02/18 05:30 Physical Exam - Physical Exam Respiratory: lungs clear Cardiac/Chest: normal peripheral pulses, regular rate, rhythm (Left dorsalis pedis pulse was normal right was unable to be felt due to bandaging of her leg.) ICD10 Worksheet Patient Problems: Problems Problem Status Onset Cellulitis Acute Dehydration Acute Chronic Disease Mgmt/Transitional Care Acute Diverticulitis large intestine w/o perforation or abscess w/o bleeding Acute CHF (congestive heart failure) Acute Shortness of breath Acute
[2018-08-05] MEDS: ETHACRYNIC ACID 25 MG TAB PO SCH ×2 (09:47→14:58)
[2018-08-05] MEDS: CARVEDILOL 25 MG TAB PO SCH ×2 (09:47→17:56)
[2018-08-05] MEDS: buPROPion XL 150 MG TAB PO SCH (09:48)
[2018-08-05] MEDS: ACETAMINOPHEN 500 MG TAB PO SCH ×3 (09:48→20:04)
[2018-08-05] MEDS: GABAPENTIN 300 MG CAP PO SCH ×3 (09:48→22:06)
[2018-08-05] MEDS: ENOXAPARIN 40 MG/0.4 ML SYR SC SCH ×2 (09:49→20:07)
[2018-08-05] MEDS: ASPIRIN EC 325 MG TAB PO SCH (09:49)
[2018-08-05] MEDS: NYSTATIN POWDER 15 GM BTL TP SCH ×2 (09:59→20:03)
[2018-08-05] MEDS: SODIUM HYPOCHLORITE (DAKINS 1/4 STR) 473 ML BTL TP SCH ×2 (09:59→22:09)
[2018-08-05] MEDS: HYDROCORTISONE 2.5% 30 GM CRTUBE TP SCH ×2 (09:59→20:03)
--- NOTE | 2018-08-05 10:38 | HOSPPROG ---
Hospitalist Progress Note Assessment/Plan: #MRSA/Pseudomonas RLE cellulitis - superimposed on known venous stasis -IV meropenum, Daptomycin -CTA legs without PAD #Hyperkalemia - now resolved -now improved -hold Entresto, Spironolactone and KCl -cards consult to reconsider CHF med regimen # Rash - suspect drug rash from Demadex, now on Ethacrynic acid. PRN hydroxyzine. Less itching today #Hypotension: resolved. Resuming BP meds slowly #Chronic systolic CHF - EF 33% - s/p BiV ICD - Coreg 12.5 BID, re-add Entresto this weekend if K and Cr stable #CAD - known 100% occluded RCA. Hold statin while on Dapto #Morbid obesity BMI 45 - with JENNA/OHS #Chronic respiratory failure due to above -baseline 2L *CKD: Cr baseline #Hyponatremia: resolved. fluid restrict #Cardiac diet #DVT ppx: Lovenox Disp: inpatient admission for IV abx, cardiac med titration Subjective: rash less itchy today Objective: Vital Signs Temp Pulse Resp BP Pulse Ox 37.2 C 95 12 136/61 H 97 08/05/18 08:43 08/05/18 08:43 08/05/18 08:43 08/05/18 08:43 08/05/18 08:43 Microbiology 08/02/18 11:25 Gram Stain - Final Leg - Swab Wound Culture - Final Pseudomonas Aeruginosa Proteus Mirabilis Staphylococcus Aureus Aerococcus Viridans Laboratory Results 08/03/18 05:50 08/05/18 04:00 08/04/18 08/05/18 08/06/18 05:59 05:59 05:59 Intake Total 1390 1680 Output Total 1250 600 Balance 140 1080 PT 14.8 SEC (12.0-15.0) 08/02/18 05:30 INR 1.14 (0.83-1.16) 08/02/18 05:30 - Time Spent With Patient Time Spent with Patient: greater than 35 minutes Time Spent with Patient: Greater than 35 minutes spent on this patients care, greater than 50% of time spent counseling, educating, and coordinating care regarding the above mentioned plan. - Physical Exam Constitutional: no apparent distress, obese Ears, Nose, Mouth, Throat: moist mucous membranes Cardiovascular: regular rate and rhythym, edema Respiratory: no respiratory distress Gastrointestinal: normoactive bowel sounds Genitourinary: no bladder fullness Skin: rash (diffuse maculopapular rash chest, back, arms. Right leg dressed. Left lower leg red, warm to touch) Musculoskeletal: full muscle strength Neurologic: AAOx3, CN II-XII Intact Psychiatric: interacting appropriately ICD10 Worksheet Patient Problems: Problems Problem Status Onset Cellulitis Acute Dehydration Acute CHF (congestive heart failure) Acute Chronic Disease Mgmt/Transitional Care Acute Diverticulitis large intestine w/o perforation or abscess w/o bleeding Acute Shortness of breath Acute
--- NOTE | 2018-08-05 12:17 | PCMIDPN ---
Assessment/Plan: Assessment: Bilateral lower extremity edema. Secondary to poorly compensated congestive heart failure. Patient has a right lower extremity however that is intensely red and edematous in this has not changed much in the last 24 hr. This is consistent with acute soft tissue infection. Cultures of the wound have shown Pseudomonas, Proteus and MRSA as well as Aeromonas. Currently the patient is on meropenem and daptomycin for coverage. Plan: 1. Continue IV meropenem and daptomycin. 2. Follow appearance of right lower extremity. 3. Will hold her atorvastatin while dosing daptomycin. 08/04/18 13:57 08/05/18 12:15 Subjective: Patient is sitting up in a chair in her hospital bed. She denies any new complaint. States that her wound dressing was changed earlier today. To her I the right lower extremity does not look significantly different. She denies any fevers or chills. No rash. Objective: Meropenem # 3 Daptomycin # 1 Vital Signs Temp Pulse Resp BP Pulse Ox 37.6 C 97 19 116/57 L 99 08/05/18 11:03 08/05/18 11:03 08/05/18 11:03 08/05/18 11:03 08/05/18 11:03 Microbiology 08/02/18 11:25 Gram Stain - Final Leg - Swab Wound Culture - Final Pseudomonas Aeruginosa Proteus Mirabilis Staphylococcus Aureus Aerococcus Viridans Laboratory Results 08/03/18 05:50 08/05/18 04:00 08/04/18 08/05/18 08/06/18 05:59 05:59 05:59 Intake Total 1390 1680 Output Total 1250 600 Balance 140 1080 - Physical Exam General Appearance: WD/WN, alert, no apparent distress, non-toxic Respiratory: lungs clear, normal breath sounds, No respiratory distress Cardiac/Chest: regular rate, rhythm, No tachycardia Extremities: pedal edema, No non-tender, No normal inspection (No proximal erythema above the dressing on the right lower extremity.) Skin: normal color, warm/dry, rash (Unchanged in appearance) Neuro/Psych: alert, normal mood/affect, oriented x 3 ICD10 Worksheet Patient Problems: Problems Problem Status Onset Cellulitis Acute Dehydration Acute CHF (congestive heart failure) Acute Chronic Disease [facility]/Transitional Care Acute Diverticulitis large intestine w/o perforation or abscess w/o bleeding Acute Shortness of breath Acute
[2018-08-05] MEDS: PRAMIPEXOLE 1 MG TAB PO SCH (20:05)
[2018-08-05] MEDS: oxyCODONE IR 5 MG TAB PO PRN (20:06)
[2018-08-06] MEDS: MEROPENEM 1 GM in NS 100 ML IV SCH ×2 (02:34→14:45)
[2018-08-06] MEDS: LEVOTHYROXINE 137 MCG TAB PO SCH (05:24)
[2018-08-06] MEDS: hydrOXYzine HCL 25 MG TAB PO PRN ×2 (05:24→21:28)
--- NOTE | 2018-08-06 09:14 | SOAPPROG ---
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 AICD checked and normal function with no arrhythmias. Echo shows LVEF still 33% with normal RVEF. She feels a little more energy and stable BP. .1. restart entresto 4)daily BMP. 5)continue IV ABX for cellulitis and ID consult. 08/04/18 07:56 Plan: restart entresto 08/05/18 09:45 08/06/18 09:06 Subjective: pt doing well from a cv standpoint...labs at baseline...will restart entresto today Objective: Vital Signs Temp Pulse Resp BP Pulse Ox 37.3 C 92 18 145/64 H 97 08/06/18 08:00 08/06/18 08:00 08/06/18 08:00 08/06/18 08:00 08/06/18 08:00 Microbiology 08/02/18 11:25 Gram Stain - Final Leg - Swab Wound Culture - Final Pseudomonas Aeruginosa Proteus Mirabilis Staphylococcus Aureus Aerococcus Viridans Laboratory Results 08/03/18 05:50 08/06/18 03:50 08/05/18 08/06/18 08/07/18 05:59 05:59 05:59 Intake Total 1680 1370 Output Total 600 1200 Balance 1080 170 PT 14.8 SEC (12.0-15.0) 08/02/18 05:30 INR 1.14 (0.83-1.16) 08/02/18 05:30 Physical Exam - Physical Exam Cardiac/Chest: regular rate, rhythm, No edema ICD10 Worksheet Patient Problems: Problems Problem Status Onset Cellulitis Acute Dehydration Acute CHF (congestive heart failure) Acute Chronic Disease Mgmt/Transitional Care Acute Diverticulitis large intestine w/o perforation or abscess w/o bleeding Acute Shortness of breath Acute
[2018-08-06] MEDS: ENOXAPARIN 40 MG/0.4 ML SYR SC SCH ×2 (09:16→20:51)
[2018-08-06] MEDS: GABAPENTIN 300 MG CAP PO SCH ×3 (09:16→20:51)
[2018-08-06] MEDS: ACETAMINOPHEN 500 MG TAB PO SCH ×3 (09:16→20:50)
[2018-08-06] MEDS: ASPIRIN EC 325 MG TAB PO SCH (09:17)
[2018-08-06] MEDS: CARVEDILOL 25 MG TAB PO SCH ×2 (09:17→17:08)
[2018-08-06] MEDS: ETHACRYNIC ACID 25 MG TAB PO SCH ×2 (09:18→14:46)
--- NOTE | 2018-08-06 09:51 | HOSPPROG ---
Hospitalist Progress Note Assessment/Plan: #MRSA/Pseudomonas RLE cellulitis - superimposed on known venous stasis -IV meropenum, Daptomycin; monitor response -CTA legs without PAD #Hyperkalemia - now resolved # Rash- from Demadex, now on Ethacrynic acid. PRN hydroxyzine. Less itching today -Zyrtec #Hypotension: resolved. Resuming BP meds slowly #Chronic systolic CHF - EF 33% - s/p BiV ICD - Coreg 12.5 BID, re-add Entresto today #CAD -known 100% occluded RCA. Hold statin while on Dapto #Morbid obesity BMI 45 - with JENNA/OHS #Chronic respiratory failure due to above. Baseline 2L *CKD: Cr at baseline #Hyponatremia: resolved. fluid restrict #Cardiac diet #DVT ppx: Lovenox Disp: inpatient admission for IV abx, cardiac med titration. Discussed with Dr. Delgadillo. Will DC to SNF when clinically improved Subjective: itching less today. No chest pain or SOB Objective: Vital Signs Temp Pulse Resp BP Pulse Ox 37.3 C 92 18 145/64 H 97 08/06/18 08:00 08/06/18 08:00 08/06/18 08:00 08/06/18 08:00 08/06/18 08:00 Microbiology 08/02/18 11:25 Gram Stain - Final Leg - Swab Wound Culture - Final Pseudomonas Aeruginosa Proteus Mirabilis Staphylococcus Aureus Aerococcus Viridans Laboratory Results 08/03/18 05:50 08/06/18 03:50 08/05/18 08/06/18 08/07/18 05:59 05:59 05:59 Intake Total 1680 1370 Output Total 600 1200 Balance 1080 170 PT 14.8 SEC (12.0-15.0) 08/02/18 05:30 INR 1.14 (0.83-1.16) 08/02/18 05:30 - Time Spent With Patient Time Spent with Patient: greater than 35 minutes Time Spent with Patient: Greater than 35 minutes spent on this patients care, greater than 50% of time spent counseling, educating, and coordinating care regarding the above mentioned plan. - Physical Exam Constitutional: no apparent distress, obese Eyes: PERRL Ears, Nose, Mouth, Throat: moist mucous membranes Cardiovascular: regular rate and rhythym Respiratory: no respiratory distress Gastrointestinal: normoactive bowel sounds Genitourinary: No hair in urethra Skin: rash (maculpapular rash over posterior legs, chest, arms, back) Musculoskeletal: full muscle strength, other (right UE PICC line) Neurologic: AAOx3, CN II-XII Intact Psychiatric: interacting appropriately ICD10 Worksheet Patient Problems: Problems Problem Status Onset Cellulitis Acute Dehydration Acute CHF (congestive heart failure) Acute Chronic Disease Mgmt/Transitional Care Acute Diverticulitis large intestine w/o perforation or abscess w/o bleeding Acute Shortness of breath Acute
[2018-08-06] MEDS: HYDROCORTISONE 2.5% 30 GM CRTUBE TP SCH ×2 (09:56→20:54)
[2018-08-06] MEDS: DAPTOmycin 400 MG in NS 100 ML IV SCH (09:57)
[2018-08-06] MEDS: SACUBITRIL/VALSARTAN 24/26MG 1 EA TAB PO SCH ×2 (09:57→20:51)
[2018-08-06] MEDS: buPROPion XL 150 MG TAB PO SCH (09:57)
[2018-08-06] MEDS: NYSTATIN POWDER 15 GM BTL TP SCH ×2 (09:57→21:06)
[2018-08-06] MEDS: SODIUM HYPOCHLORITE (DAKINS 1/4 STR) 473 ML BTL TP SCH ×2 (09:58→21:06)
[2018-08-06] MEDS: oxyCODONE IR 5 MG TAB PO PRN ×2 (13:22→21:28)
[2018-08-06] MEDS: CETIRIZINE 10 MG TAB PO SCH (14:57)
[2018-08-06] MEDS: PRAMIPEXOLE 1 MG TAB PO SCH (20:51)
[2018-08-06] MEDS ORDERED: LORazepam 0.5 MG TAB PO ONE (22:41)
[2018-08-07] MEDS: MEROPENEM 1 GM in NS 100 ML IV SCH ×2 (01:18→14:44)
[2018-08-07] MEDS: LEVOTHYROXINE 137 MCG TAB PO SCH (07:23)
[2018-08-07] MEDS: ACETAMINOPHEN 500 MG TAB PO SCH ×3 (07:23→21:43)
[2018-08-07] MEDS: CARVEDILOL 25 MG TAB PO SCH ×2 (07:24→18:20)
[2018-08-07] MEDS: ETHACRYNIC ACID 25 MG TAB PO SCH ×2 (09:30→18:20)
[2018-08-07] MEDS: CETIRIZINE 10 MG TAB PO SCH (09:30)
[2018-08-07] MEDS: ASPIRIN EC 325 MG TAB PO SCH (09:30)
[2018-08-07] MEDS: buPROPion XL 150 MG TAB PO SCH (09:30)
[2018-08-07] MEDS: DAPTOmycin 400 MG in NS 100 ML IV SCH (09:31)
[2018-08-07] MEDS: NYSTATIN POWDER 15 GM BTL TP SCH ×2 (09:31→21:46)
[2018-08-07] MEDS: ENOXAPARIN 40 MG/0.4 ML SYR SC SCH ×2 (09:31→21:45)
[2018-08-07] MEDS: GABAPENTIN 300 MG CAP PO SCH ×3 (09:31→21:43)
[2018-08-07] MEDS: HYDROCORTISONE 2.5% 30 GM CRTUBE TP SCH ×2 (09:32→21:54)
[2018-08-07] MEDS: SODIUM HYPOCHLORITE (DAKINS 1/4 STR) 473 ML BTL TP SCH ×2 (09:33→22:08)
--- NOTE | 2018-08-07 10:22 | PCMIDPN ---
Assessment/Plan: Assessment/Plan: * Right lower extremity cellulitis likely superimposed on venous insufficiency in the setting of congestive heart failure: Erythema over right lower extremity which is faint in color. Ulcerations are clean based and shallow without purulent drainage. Cultures likely represent colonization with multiple pathogens. Reviewed with lab as formal susceptibility of Staphylococcus aureus shows MSSA; currently felt initial identification is MRSA in error. Will therefore discontinue daptomycin in continue therapy with meropenem which is providing activity against other isolated pathogens including Pseudomonas. Anticipate short duration of therapy of 5-7 days. Continue with ongoing wound care. * Rash: Likely drug related and felt to be due to Demadex prior to admission. 08/07/18 10:19 08/07/18 10:24 Subjective: Patient complains of persistent pain in right lower extremity. Rash over upper extremities preceded use of antibiotic therapy. Objective: Vital Signs Temp Pulse Resp BP Pulse Ox 36.9 C 87 18 154/73 H 96 08/07/18 07:29 08/07/18 07:29 08/07/18 07:29 08/07/18 07:29 08/07/18 07:29 Microbiology 08/02/18 11:25 Gram Stain - Final Leg - Swab Wound Culture - Final Pseudomonas Aeruginosa Proteus Mirabilis Staphylococcus Aureus Aerococcus Viridans Laboratory Results 08/03/18 05:50 08/07/18 05:10 08/06/18 08/07/18 08/08/18 05:59 05:59 05:59 Intake Total 1370 1190 Output Total 1200 500 Balance 170 690 Meropenem # 4 Daptomycin # 2 Wound culture with growth of Pseudomonas, Proteus, MSSA, and Aerococcus; previously identified MRSA reviewed with lab and not felt to be consistent with actual presence of MRSA. - Physical Exam General Appearance: alert, no apparent distress, obese EENT: No scleral icterus, No thrush Respiratory: lungs clear, No respiratory distress Cardiac/Chest: regular rate, rhythm Extremities: inflammation (Right lower extremity with multiple shallow based ulcers over anterior arenas and posterior calf; no purulent drainage; erythema at above ulcer margins extending below knee with mild warmth and tenderness) Skin: rash (Upper extremities with erythematous scaly rash bilaterally) ICD10 Worksheet Patient Problems: Problems Problem Status Onset Cellulitis Acute Dehydration Acute CHF (congestive heart failure) Acute Chronic Disease Mgmt/Transitional Care Acute Diverticulitis large intestine w/o perforation or abscess w/o bleeding Acute Shortness of breath Acute
[2018-08-07] MEDS: SACUBITRIL/VALSARTAN 24/26MG 1 EA TAB PO SCH ×2 (10:39→21:45)
[2018-08-07] MEDS: oxyCODONE IR 5 MG TAB PO PRN ×2 (10:42→21:44)
--- NOTE | 2018-08-07 12:27 | ASMTCMCOM ---
CM Note CM Note Notes: Per ID, patient does not need Daptomycin any more and only a few more days of Meropenem. Her discharge to [facility] was conditional on the above, so I alerted the facility. Anticipate undremarkable d/c to [facility] in 2-3 days. Case Management will follow. Date Signed: 08/07/2018 12:26 PM Electronically Signed By:Dawna Linares RN
--- NOTE | 2018-08-07 12:33 | SOAPPROG ---
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 AICD checked and normal function with no arrhythmias. Echo shows LVEF still 33% with normal RVEF. She feels a little more energy and stable BP. PLAN: 1)increase ethacrynic acid to 50mg PO BID 2)rest of meds without changes. For now no aldactone 3)okay from CHF standpoint to transfer to SNF or rehab center when rest of medical issues ready. 08/07/18 12:31 Subjective: REESE at 20-30ft. Feet less painful and weepy. Denies CP, near syncope or palpitations. Objective: Vital Signs Temp Pulse Resp BP Pulse Ox 36.8 C 78 18 139/59 H 97 08/07/18 12:00 08/07/18 12:00 08/07/18 12:00 08/07/18 12:00 08/07/18 12:00 Microbiology 08/02/18 11:25 Gram Stain - Final Leg - Swab Wound Culture - Final Pseudomonas Aeruginosa Proteus Mirabilis Staphylococcus Aureus Aerococcus Viridans Laboratory Results 08/03/18 05:50 08/07/18 05:10 08/06/18 08/07/18 08/08/18 05:59 05:59 05:59 Intake Total 1370 1190 Output Total 1200 500 Balance 170 690 PT 14.8 SEC (12.0-15.0) 08/02/18 05:30 INR 1.14 (0.83-1.16) 08/02/18 05:30 Physical Exam - Physical Exam General Appearance: alert, obese EENT: PERRL/EOMI Neck: non-tender Respiratory: lungs clear Cardiac/Chest: regular rate, rhythm, systolic murmur, No gallop, No JVD Peripheral Pulses: 1+: femoral (R), femoral (L), dorsalis-pedis (R), dorsalis- pedis (L), 2+: carotid (R), carotid (L) Abdomen: non-tender, No guarding, No rebound, No ascites Skin: warm/dry Extremities: pedal edema Neuro/Psych: alert ICD10 Worksheet Patient Problems: Problems Problem Status Onset Cellulitis Acute Dehydration Acute CHF (congestive heart failure) Acute Chronic Disease Mgmt/Transitional Care Acute Diverticulitis large intestine w/o perforation or abscess w/o bleeding Acute Shortness of breath Acute
--- NOTE | 2018-08-07 12:52 | HOSPPROG ---
Hospitalist Progress Note Assessment/Plan: #MSSA/Pseudomonas RLE cellulitis - superimposed on known venous stasis. Improving -not MRSA, Dapto stopped. Continue IV meropenum -CTA legs without PAD #Hyperkalemia - now resolved # Rash- from Demadex, now on Ethacrynic acid. PRN hydroxyzine. Less itching today -Zyrtec #Hypotension: resolved. Resuming BP meds slowly #Chronic systolic CHF - EF 33% - s/p BiV ICD - Coreg 12.5 BID, Enestro. Stable from Cardiology standpoint #CAD -known 100% occluded RCA. Statin #Morbid obesity BMI 45 - with JENNA/OHS #Chronic respiratory failure due to above. Baseline 2L *CKD: Cr at baseline #Hyponatremia: resolved. fluid restrict #Cardiac diet #DVT ppx: Lovenox Disp: inpatient admission for IV abx, cardiac med titration. Discussed with Dr. Dlegadillo. Will DC to SNF when clinically improved Subjective: pain in leg with dressing change Objective: Vital Signs Temp Pulse Resp BP Pulse Ox 36.8 C 78 18 139/59 H 97 08/07/18 12:00 08/07/18 12:00 08/07/18 12:00 08/07/18 12:00 08/07/18 12:00 Microbiology 08/02/18 11:25 Gram Stain - Final Leg - Swab Wound Culture - Final Pseudomonas Aeruginosa Proteus Mirabilis Staphylococcus Aureus Aerococcus Viridans Laboratory Results 08/03/18 05:50 08/07/18 05:10 08/06/18 08/07/18 08/08/18 05:59 05:59 05:59 Intake Total 1370 1190 Output Total 1200 500 Balance 170 690 PT 14.8 SEC (12.0-15.0) 08/02/18 05:30 INR 1.14 (0.83-1.16) 08/02/18 05:30 - Time Spent With Patient Time Spent with Patient: greater than 35 minutes Time Spent with Patient: Greater than 35 minutes spent on this patients care, greater than 50% of time spent counseling, educating, and coordinating care regarding the above mentioned plan. - Physical Exam Constitutional: obese Eyes: PERRL Ears, Nose, Mouth, Throat: moist mucous membranes Cardiovascular: regular rate and rhythym, edema (RLE >LLE) Gastrointestinal: normoactive bowel sounds Genitourinary: no bladder fullness Skin: warm, rash (erythema improved left leg. Right leg ulcers with clean base, no purulence. Diffuse maculopapular rash over trunk/back/extremities slowly improving) Musculoskeletal: full muscle strength Neurologic: AAOx3, CN II-XII Intact Psychiatric: interacting appropriately ICD10 Worksheet Patient Problems: Problems Problem Status Onset Cellulitis Acute Dehydration Acute CHF (congestive heart failure) Acute Chronic Disease Mgmt/Transitional Care Acute Diverticulitis large intestine w/o perforation or abscess w/o bleeding Acute Shortness of breath Acute
[2018-08-07] MEDS: ATORVASTATIN CALCIUM 40 MG TAB PO SCH ×2 (12:56→13:23)
[2018-08-07] MEDS: PRAMIPEXOLE 1 MG TAB PO SCH (21:43)
[2018-08-08] MEDS: MEROPENEM 1 GM in NS 100 ML IV SCH (02:21)
[2018-08-08] MEDS: LEVOTHYROXINE 137 MCG TAB PO SCH (05:59)
[2018-08-08] MEDS: ATORVASTATIN CALCIUM 40 MG TAB PO SCH (08:11)
[2018-08-08] MEDS: CARVEDILOL 25 MG TAB PO SCH ×2 (08:11→17:47)
[2018-08-08] MEDS: GABAPENTIN 300 MG CAP PO SCH ×3 (08:11→21:45)
[2018-08-08] MEDS: ETHACRYNIC ACID 25 MG TAB PO SCH ×2 (08:12→17:48)
[2018-08-08] MEDS: ACETAMINOPHEN 500 MG TAB PO SCH ×3 (08:13→21:45)
[2018-08-08] MEDS: buPROPion XL 150 MG TAB PO SCH (08:13)
[2018-08-08] MEDS: CETIRIZINE 10 MG TAB PO SCH (08:13)
[2018-08-08] MEDS: SACUBITRIL/VALSARTAN 24/26MG 1 EA TAB PO SCH ×2 (08:14→21:46)
[2018-08-08] MEDS: ASPIRIN EC 325 MG TAB PO SCH (08:14)
[2018-08-08] MEDS: ENOXAPARIN 40 MG/0.4 ML SYR SC SCH ×2 (08:14→21:46)
[2018-08-08] MEDS: HYDROCORTISONE 2.5% 30 GM CRTUBE TP SCH ×2 (08:19→21:51)
[2018-08-08] MEDS: NYSTATIN POWDER 15 GM BTL TP SCH ×2 (08:19→21:50)
[2018-08-08] MEDS: oxyCODONE IR 5 MG TAB PO PRN (09:38)
--- NOTE | 2018-08-08 09:40 | PCMIDPN ---
Assessment/Plan: #RLE cellulitis : wound cx of venous insufficiency ulcer showed MSSA, PsA, Proteus, Aerococcus. Suspect primary pathogen MSSA and others just colonizers. CrCl 50-60. CHF also contributor to MARY --narrow to ancef 2gm IV q8h, based on CrCl and weight --continue LE elevation and wound care --patient feels wound care at [facility] not as good, could consider weekly Wound healing center visits until stabilized, also concerned that [facility] will not have needed wound supplies #Diffuse MP rash w/o mucosal involvement: attributed to diuretic meds meropenem 1gm IV q12 #5 Microbiology 08/02/18 11:25 Leg - Swab Wound Culture - Final Pseudomonas Aeruginosa Proteus Mirabilis Staphylococcus Aureus Aerococcus Viridans 08/02/18 05:50 Blood Cx (2) Neg Subjective: feels like legs are better no oral pain no diarrhea Objective: Vital Signs Temp Pulse Resp BP Pulse Ox 36.9 C 90 20 153/75 H 94 08/08/18 07:42 08/08/18 07:42 08/08/18 07:42 08/08/18 07:42 08/08/18 07:42 Microbiology 08/02/18 11:25 Gram Stain - Final Leg - Swab Wound Culture - Final Pseudomonas Aeruginosa Proteus Mirabilis Staphylococcus Aureus Aerococcus Viridans Laboratory Results 08/03/18 05:50 08/08/18 03:45 08/07/18 08/08/18 08/09/18 05:59 05:59 05:59 Intake Total 1190 1150 Output Total 500 Balance 690 1150 - Physical Exam General Appearance: alert, no apparent distress, obese EENT: dry mucous membranes, other (no oral ulcerations), No thrush Respiratory: other (decrease bs throughout), No accessory muscle use Cardiac/Chest: regular rate, rhythm, No systolic murmur Extremities: pedal edema, other (R LE denuded with open venous ulcerations, mild erythema on R still present with sloughing skin. mild tenderness, no creptitis) Peripheral Pulses: 1+: dorsalis-pedis (R), dorsalis-pedis (L) Skin: rash (MP eruption - appears to be fadeing arms, chest, back. Mostly spares LE and face) Neuro/Psych: alert, normal mood/affect, oriented x 3 - Line/s RUE PICC Lines: No drainage, No erythema - Time Spent With Patient Time Spent with Patient: greater than 35 minutes (care coordinated with RN at bedside & pharmacy) Time Spent with Patient: Greater than 35 minutes spent on this patients care, greater than 50% of time spent counseling, educating, and coordinating care regarding the above mentioned plan. ICD10 Worksheet Patient Problems: Problems Problem Status Onset Cellulitis Acute Dehydration Acute CHF (congestive heart failure) Acute Chronic Disease Mgmt/Transitional Care Acute Diverticulitis large intestine w/o perforation or abscess w/o bleeding Acute Shortness of breath Acute
--- NOTE | 2018-08-08 12:31 | ASMTCMCOM ---
GAGE Note GAGE Note Notes: Pts case discussed in tx rounds. Pt had concerns about [facility] abilities to address her wounds. However, she would like to return to [facility]. She wants to make sure they have the proper wound care supplies and instructions. Wound Care is not in today. Aleta pts nurse will call the outpatient wound care for direction. GAGE spoke to Dr. Major about this matter as well. Dr. Major is changing her ivabx to cefazolin. Pt will most likely be here for a couple more days. GAGE spoke to Keira at [facility] and she will speak to Aleta about the wound care concerns. CM spoke w/ pts son Jens on the phone about d/c POC. CM to follow. Plan: [facility] Date Signed: 08/08/2018 12:31 PM Electronically Signed By:CARLITO Mckeon
[2018-08-08] MEDS: ceFAZolin 2 GM/DEXTROSE 100 ML IV SCH ×2 (13:57→22:39)
--- NOTE | 2018-08-08 14:10 | HOSPPROG ---
Hospitalist Progress Note Assessment/Plan: #MSSA/Pseudomonas RLE cellulitis - superimposed on known venous stasis. Improving -Narrow to Ancef 08/08/18. Wound care, elevate legs -CTA legs without PAD #Hyperkalemia - now resolved #Rash: much improved. From Demadex. PRN hydroxyzine. Less itching today -Zyrtec #Hypotension: resolved. Resuming BP meds slowly #Chronic systolic CHF - EF 33% - s/p BiV ICD - Coreg 12.5 BID, Enestro. Stable from Cardiology standpoint #CAD -known 100% occluded RCA. Statin #Morbid obesity BMI 45 - with JENNA/OHS #Chronic respiratory failure due to above. Baseline 2L *CKD: Cr at baseline #Hyponatremia: resolved. fluid restrict #Cardiac diet #DVT ppx: Lovenox Disp: inpatient admission for IV abx, cardiac med titration. DC to [facility] with wound care when clinically stable Subjective: less pain RLE with dressing changes Objective: Vital Signs Temp Pulse Resp BP Pulse Ox 36.6 C 81 20 111/59 L 96 08/08/18 10:38 08/08/18 10:38 08/08/18 10:38 08/08/18 10:38 08/08/18 10:38 Microbiology 08/02/18 11:25 Gram Stain - Final Leg - Swab Wound Culture - Final Pseudomonas Aeruginosa Proteus Mirabilis Staphylococcus Aureus Aerococcus Viridans Laboratory Results 08/03/18 05:50 08/08/18 03:45 08/07/18 08/08/18 08/09/18 05:59 05:59 05:59 Intake Total 1190 1150 Output Total 500 Balance 690 1150 PT 14.8 SEC (12.0-15.0) 08/02/18 05:30 INR 1.14 (0.83-1.16) 08/02/18 05:30 - Time Spent With Patient Time Spent with Patient: greater than 35 minutes Time Spent with Patient: Greater than 35 minutes spent on this patients care, greater than 50% of time spent counseling, educating, and coordinating care regarding the above mentioned plan. - Physical Exam Constitutional: obese Eyes: PERRL Ears, Nose, Mouth, Throat: moist mucous membranes Cardiovascular: regular rate and rhythym, edema (RLE>LLE) Respiratory: no respiratory distress Gastrointestinal: normoactive bowel sounds Genitourinary: no bladder fullness Skin: other (RLE dressed with Kerlex, CDI. LLE erythema improved. Diffuse maculopapular rash improving daily) Musculoskeletal: full muscle strength Neurologic: AAOx3 Psychiatric: interacting appropriately ICD10 Worksheet Patient Problems: Problems Problem Status Onset Cellulitis Acute Dehydration Acute CHF (congestive heart failure) Acute Chronic Disease Mgmt/Transitional Care Acute Diverticulitis large intestine w/o perforation or abscess w/o bleeding Acute Shortness of breath Acute
--- NOTE | 2018-08-08 14:43 | PDCARPN ---
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 Pre- syncope on admission, hypotension, fevers and concern for leg cellulitis. AICD interrogated--normal function with no arrhythmias. Echo shows LVEF still 33% w/normal LVEF. Today she is feeling better. Able to get up and ambulate w/o significant SOB. She still feels "winded" at times. Legs improving. Right leg wrap in place. Continues on ABx. Plan: 08/08/18 14:36 Continue on ethacrynic acid to 50mg PO BID Entresto 24mg/26 mg BID Coreg 12.[address] Okeefe will see tomorrow. Subjective: I feel better each day. Reviewed/Discussed With: hospitalist, multidisciplinary team Time Spent with Patient: greater than 25 minutes Time Spent with Patient: Greater than 25 minutes spent on this patients care, greater than 50% of time spent counseling, educating, and coordinating care regarding the above mentioned plan. Objective: Vital Signs (8 Hrs) Temp Pulse Resp BP Pulse Ox 08/08/18 10:38 36.6 C 81 20 111/59 L 96 08/08/18 07:42 36.9 C 90 20 153/75 H 94 Intake/Output (24 Hrs) 08/07/18 08/08/18 08/09/18 05:59 05:59 05:59 Intake Total 1190 1150 Output Total 500 Balance 690 1150 Intake: Oral (ml) 990 1150 IV Infused (ml) 200 DAPTOmycin 400 mg In Ns 100 100 ml @ 200 mls/hr IV DAILY VANDA Rx#:[id number] Meropenem 1 gm In Ns 100 100 ml @ 120 mls/hr IV Q12H VANDA Rx#:[id number] Output: Urine (ml) 500 Toilet 500 Other: Weight 110.1 kg 109.7 kg Number of Voids Toilet 6 2 Number of Stools Toilet 6 1 Result Diagrams: 08/03/18 05:50 08/08/18 03:45 - Physical Exam Constitutional: no apparent distress Cardiovascular: regular rate and rhythm, no rubs, no gallops, systolic murmur Respiratory: clear to auscultate bilat, no crackles, no wheezes Skin: warm Neurologic: AAOx3 Psychiatric: cooperative, interactive ICD10 Worksheet Patient Problems: Problems Problem Status Onset Cellulitis Acute Dehydration Acute Chronic Disease Mgmt/Transitional Care Acute Diverticulitis large intestine w/o perforation or abscess w/o bleeding Acute CHF (congestive heart failure) Acute Shortness of breath Acute
[2018-08-08] MEDS: PRAMIPEXOLE 1 MG TAB PO SCH (21:45)
[2018-08-09] MEDS: oxyCODONE IR 5 MG TAB PO PRN ×3 (00:35→22:49)
[2018-08-09] MEDS: ceFAZolin 2 GM/DEXTROSE 100 ML IV SCH ×3 (05:51→22:40)
[2018-08-09] MEDS: LEVOTHYROXINE 137 MCG TAB PO SCH (05:51)
[2018-08-09] MEDS: GABAPENTIN 300 MG CAP PO SCH ×3 (08:57→22:40)
[2018-08-09] MEDS: ACETAMINOPHEN 500 MG TAB PO SCH ×3 (08:58→22:40)
[2018-08-09] MEDS: buPROPion XL 150 MG TAB PO SCH (08:58)
[2018-08-09] MEDS: ATORVASTATIN CALCIUM 40 MG TAB PO SCH (08:58)
[2018-08-09] MEDS: ASPIRIN EC 325 MG TAB PO SCH (08:58)
[2018-08-09] MEDS: ETHACRYNIC ACID 25 MG TAB PO SCH ×2 (08:58→17:28)
[2018-08-09] MEDS: CETIRIZINE 10 MG TAB PO SCH (08:58)
[2018-08-09] MEDS: ENOXAPARIN 40 MG/0.4 ML SYR SC SCH ×2 (08:59→20:48)
[2018-08-09] MEDS: CARVEDILOL 25 MG TAB PO SCH ×2 (08:59→17:28)
[2018-08-09] MEDS: SACUBITRIL/VALSARTAN 24/26MG 1 EA TAB PO SCH ×2 (08:59→20:49)
[2018-08-09] MEDS: HYDROCORTISONE 2.5% 30 GM CRTUBE TP SCH ×2 (08:59→20:49)
[2018-08-09] MEDS: NYSTATIN POWDER 15 GM BTL TP SCH ×2 (09:00→20:49)
--- NOTE | 2018-08-09 10:17 | PCMIDPN ---
Assessment/Plan: Assessment: 77-year-old woman with bilateral chronic venous stasis dermatitis with right lower extremity ulcerations. She will complete a total of 7 days of IV antibiotics after today's doses with no ongoing evidence for an active infection. Remains difficult to determine if new onset of redness and any point resistance infection or the natural history of venous stasis changes. She was require ongoing wound care as an outpatient and assistance with management of her edema. 1. Right lower extremity cellulitis, improved 2. Chronic bilateral lower extremity venous stasis dermatitis 3. Morbid obesity contributing to 2. 4. Chronic systolic heart failure, compensated; contributing to 2. Plan: 1. Continue cefazolin 2 g q.8h; stop after today's doses, order placed 2. Outpatient wound care follow-up Jef Tamayo MD Infectious Diseases 08/09/18 10:20 Subjective: No fever or chills. Denies nausea, occasional loose stools. Appetite improving. Ambulating without difficulty. No new concerns today. Objective: Vital Signs Temp Pulse Resp BP Pulse Ox 37.0 C 88 14 143/85 H 94 08/09/18 08:30 08/09/18 08:30 08/09/18 08:30 08/09/18 08:30 08/09/18 08:30 Microbiology 08/02/18 11:25 Gram Stain - Final Leg - Swab Wound Culture - Final Pseudomonas Aeruginosa Proteus Mirabilis Staphylococcus Aureus Aerococcus Viridans Laboratory Results 08/09/18 03:55 08/09/18 03:55 08/08/18 08/09/18 08/10/18 05:59 05:59 05:59 Intake Total 1150 450 Balance 1150 450 Microbiology 08/02/18 11:25 Leg - Swab Gram Stain - Final 08/02/18 11:25 Leg - Swab Wound Culture - Final Pseudomonas Aeruginosa Proteus Mirabilis Staphylococcus Aureus Aerococcus Viridans 08/02/18 06:05 Blood Blood Culture - Final 08/02/18 05:50 Blood Blood Culture - Final Laboratory Tests 08/03/18 08/08/18 08/09/18 05:50 03:45 03:55 WBC 8.88 8.79 Hgb 9.9 L 10.5 L Plt Count 225 235 Creatinine 0.8 08/09/18 03:55 WBC Hgb Plt Count Creatinine 0.8 - Physical Exam General Appearance: alert, no apparent distress, non-toxic EENT: No scleral icterus Respiratory: lungs clear, normal breath sounds, No respiratory distress, No crackles, No wheezing Neck: full range of motion, supple Cardiac/Chest: regular rate, rhythm, No bradycardia, No tachycardia, No diastolic murmur, No systolic murmur Extremities: other (Left lower extremity with circumferential erythema in chronic venous stasis dermatitis; right lower extremity dressing not taken down problem) Abdomen: normal bowel sounds (He is), non-tender, soft, No distended (This) Skin: rash (Blanching erythema over the back diffusely, right upper extremity with blanching erythematous macular rash) Neuro/Psych: alert, normal mood/affect, oriented x 3, No confused - Time Spent With Patient Time Spent with Patient: greater than 25 minutes Time Spent with Patient: Greater than 25 minutes spent on this patients care, greater than 50% of time spent counseling, educating, and coordinating care regarding the above mentioned plan. ICD10 Worksheet Patient Problems: Problems Problem Status Onset Cellulitis Acute Dehydration Acute CHF (congestive heart failure) Acute Chronic Disease Mgmt/Transitional Care Acute Diverticulitis large intestine w/o perforation or abscess w/o bleeding Acute Shortness of breath Acute
--- NOTE | 2018-08-09 14:19 | WOCRNPDOC ---
WOCRN Advanced Assessment Note - Skin Integrity Problem, Advanced Assess Left Lower Leg Dressing Type: Open to Air Skin Integrity Problem Comment: Leg has significantly improved since patient was first admitted approximately one week ago. Erythema and lipodermatoscerlosis is present, but most of the large amounts of skin has been removed and the skin has been moisturized. Patient has a negative stemmers but wound RN queries whether there is some component of lymphedema present. Patient has good arterial flow to lower legs so compression will be initiated. Education done with patient and her daughter on compression and LEVD. Patient's daughter was nervous about d/c to rehab and wanted to ensure that very detailed wound care orders were written so the staff there could follow them in the interim until patient goes to [facility] for follow up. Right Lower Leg Dressing Type: ABD Pad, Hydrofera Blue Ready (x3), Kerlix Dressing Description: Intact, Shadowed Exudate Amount: Moderate Exudate Characteristic(s): Serosanguinous Integumentary Issue Intervention: Dressing Removed Devorah Wound Tissue: Erythema, Macerated, Lipodermatosclerosis, Venous Dermatitis , Shiny, Painful/Tender Wound Bed Color: Red Wound Bed Constitution: Granulation Tissue (100%) Wound Edges: Attached, Irregular Site Measurement - Head-to-Toe Length X Width X Depth (cm): 10x27.5x0.2 Skin Integrity Problem Comment: Dressing removed with copious amounts of NS. Explained to patient that it is alright if dressings remove some tissue when they come off so mechanical debridement occurs. Islands of epithelial cells are developing throughout wound bed. They was shown to both the patient and her daughter to yun their fears about dressing changes causing damage to the wound bed. Wound bed is almost 40% smaller than last week and is healing very well. Measured bilateral calf circumference: right is 43, left is 35.5. Education re: compression and application of compression. Will supply two sizes , Tubigrip E for moderate compression and Tubigrip F for right leg (light compression until swelling reduces more in the patient's right leg). Foaming cleanser applied to right foot and leg (devorah wound skin) and more skin was removed and area was cleaned. Dimethicone cream applied after cleaning. All questions answered. Nini ORTIZ was in room for all care and assisted with patient. Wound care will follow. Patient encouraged to call outpatient [facility] to schedule a follow up appt for application of compression wraps and wound care follow up. All questions answered. Shared images of wound with Dr. Tamayo from [place] via [facility].
--- NOTE | 2018-08-09 14:27 | SOAPPROG ---
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 AICD checked and normal function with no arrhythmias. Echo shows LVEF still 33% with normal RVEF. She feels a little more energy and stable BP. PLAN: 1)no change in current meds. Would not restart aldactone currently with serum K + today 4.8 already and history of hyperkalemia on Aldactone in past. 2)agree with right leg u/s to rule out DVT 3)okay to transfer to SNF from CHF standpoint when rest of medical issues stable enough. 08/09/18 14:24 Subjective: REESE at 10-20 ft. Denies CP, palpitations or syncope. Right leg is more swollen than left. Overall leg pain less. Objective: Vital Signs Temp Pulse Resp BP Pulse Ox 36.7 C 70 18 128/82 H 97 08/09/18 12:10 08/09/18 12:10 08/09/18 12:10 08/09/18 12:10 08/09/18 12:10 Microbiology 08/02/18 11:25 Gram Stain - Final Leg - Swab Wound Culture - Final Pseudomonas Aeruginosa Proteus Mirabilis Staphylococcus Aureus Aerococcus Viridans Laboratory Results 08/09/18 03:55 08/09/18 03:55 08/08/18 08/09/18 08/10/18 05:59 05:59 05:59 Intake Total 1150 450 Balance 1150 450 PT 14.8 SEC (12.0-15.0) 08/02/18 05:30 INR 1.14 (0.83-1.16) 08/02/18 05:30 Physical Exam - Physical Exam General Appearance: alert, obese EENT: PERRL/EOMI Neck: non-tender Respiratory: lungs clear Cardiac/Chest: regular rate, rhythm, systolic murmur, No gallop, No JVD Peripheral Pulses: 1+: femoral (R), femoral (L), dorsalis-pedis (R), dorsalis- pedis (L), 2+: carotid (R), carotid (L) Abdomen: non-tender, No guarding, No rebound, No ascites Skin: warm/dry Extremities: pedal edema Neuro/Psych: alert ICD10 Worksheet Patient Problems: Problems Problem Status Onset Cellulitis Acute Dehydration Acute CHF (congestive heart failure) Acute Chronic Disease Mgmt/Transitional Care Acute Diverticulitis large intestine w/o perforation or abscess w/o bleeding Acute Shortness of breath Acute
--- NOTE | 2018-08-09 15:27 | HOSPPROG ---
Hospitalist Progress Note Assessment/Plan: #MSSA/Pseudomonas RLE cellulitis - superimposed on known venous stasis. Improving - Narrowed to Ancef 08/08/18. Per ID last day for abx is today, s/p 7 day course - Wound care, elevate legs - CTA legs without PAD - R > L edema this AM, LE U/S ordered which was negative for DVT #Hyperkalemia - now resolved #Rash: much improved. From Demadex. PRN hydroxyzine. Less itching today - Continue Zyrtec #Hypotension: resolved. Resuming BP meds slowly #Chronic systolic CHF - EF 33% - s/p BiV ICD - Coreg 12.5 BID, Enestro. Stable from Cardiology standpoint #CAD -known 100% occluded RCA. Statin #Morbid obesity BMI 45 - with JENNA/OHS #Chronic respiratory failure due to above. Baseline 2L *CKD: Cr at baseline #Hyponatremia: resolved. fluid restrict #Cardiac diet #DVT ppx: Lovenox Disp: inpatient admission for IV abx, cardiac med titration. DC to [facility] with wound care when clinically stable, likely tomorrow Subjective: Patient reports R >L leg swelling this AM Objective: Vital Signs Temp Pulse Resp BP Pulse Ox 36.6 C 86 17 132/68 H 97 08/09/18 15:10 08/09/18 15:10 08/09/18 15:10 08/09/18 15:10 08/09/18 15:10 Microbiology 08/02/18 11:25 Gram Stain - Final Leg - Swab Wound Culture - Final Pseudomonas Aeruginosa Proteus Mirabilis Staphylococcus Aureus Aerococcus Viridans Laboratory Results 08/09/18 03:55 08/09/18 03:55 08/08/18 08/09/18 08/10/18 05:59 05:59 05:59 Intake Total 1150 450 550 Balance 1150 450 550 PT 14.8 SEC (12.0-15.0) 08/02/18 05:30 INR 1.14 (0.83-1.16) 08/02/18 05:30 - Physical Exam Constitutional: chronically ill appearing Eyes: PERRL Ears, Nose, Mouth, Throat: moist mucous membranes Cardiovascular: regular rate and rhythym Respiratory: no respiratory distress Gastrointestinal: soft, non-tender abdomen Skin: warm Neurologic: AAOx3 Psychiatric: interacting appropriately ICD10 Worksheet Patient Problems: Problems Problem Status Onset Cellulitis Acute Dehydration Acute CHF (congestive heart failure) Acute Chronic Disease Mgmt/Transitional Care Acute Diverticulitis large intestine w/o perforation or abscess w/o bleeding Acute Shortness of breath Acute
[2018-08-09] MEDS: PRAMIPEXOLE 1 MG TAB PO SCH (20:49)
[2018-08-10] MEDS: LEVOTHYROXINE 137 MCG TAB PO SCH (06:26)
[2018-08-10 08:00] VITALS: BP 146/77
[2018-08-10] MEDS: CARVEDILOL 25 MG TAB PO SCH (09:04)
[2018-08-10] MEDS: ETHACRYNIC ACID 25 MG TAB PO SCH (09:04)
[2018-08-10] MEDS: SACUBITRIL/VALSARTAN 24/26MG 1 EA TAB PO SCH (09:04)
[2018-08-10] MEDS: buPROPion XL 150 MG TAB PO SCH (09:04)
[2018-08-10] MEDS: ACETAMINOPHEN 500 MG TAB PO SCH (09:05)
[2018-08-10] MEDS: ATORVASTATIN CALCIUM 40 MG TAB PO SCH (09:05)
[2018-08-10] MEDS: GABAPENTIN 300 MG CAP PO SCH (09:05)
[2018-08-10] MEDS: CETIRIZINE 10 MG TAB PO SCH (09:05)
[2018-08-10] MEDS: HYDROCORTISONE 2.5% 30 GM CRTUBE TP SCH (09:06)
[2018-08-10] MEDS: ENOXAPARIN 40 MG/0.4 ML SYR SC SCH (09:06)
[2018-08-10] MEDS: ASPIRIN EC 325 MG TAB PO SCH (09:06)
--- NOTE | 2018-08-10 10:51 | PDIAF ---
- Diagnosis Diagnosis: RLE Cellulitis Code Status: Full Code - Medication Management Discharge Medications: electronically signed and located in the Home Medication List. - Orders Services needed: Home Care, Registered Nurse, Physical Therapy, Occupational Therapy Home Care Face to Face: I certify that this patient was under my care and that I had the required [id number] encounter meeting the encounter requirements on the discharge day. My findings support the fact that the patient is homebound as defined in Home Care Face to Face Continued: CMS Chapter 7 Medicare Benefits Manual 30.1.1 , The condition of the patient is such that there exists a normal inability to leave home and consequently, leaving home would require a considerable and taxing effort. Isolation Type: None Additional Instructions: Please follow up within 3- 4 weeks of discharge with [facility] so they may continue to manage your venous stasis ulcers: You may reach them at [phone] for an appointment and continued management of your wounds. Please call them [facility] to schedule your appointment as they fill up quickly. If before that time you have any issues, please follow up with your PCP. Patient should have Tubigrip size E on bilateral lower legs from balls of feet to 1 inch under the knees. If right leg cannot tolerate the E size you may use size F until patient goes to outpatient wound healing center and has compression wraps applied. These tubigrips should be applied each morning before patient gets out of bed, and are to be taken off each night. Wound care orders: Right lower leg:Please pre-medicate patient with pain medication prior to dressing changes. Clean andrew wound skin on feet/toes/leg on right side and all lower leg skin on left side every other day. Take down the dressing, then use foaming cleanser and clean the skin indicated above. Remove loose skin manually. Then use dimethicone cream on all the skin you cleaned except between the toes. After that: Change dressings on the right lower leg venous stasis ulcer wounds every 2 days and prn saturation. 1. Clean with ns and gauze removing any loose skin/tissue with the gauze. 2. Apply a layer of wound/silver gel over all wounds. 3. Cover with hydrofera blue transfer (HBT) 4. Cover HBT with ABD's 5. Secure with Kerlix and netting If dressing is saturated you may leave the hydrofera blue transfer on and change it Q2D, but change out the ABD and kerlix prn. Cele Burgos CWON - Follow Up Care Current Providers and Referrals: Patient,NotPresent [Unknown] - As per Instructions
--- NOTE | 2018-08-10 10:58 | PDDCSUM ---
Discharge Summary Discharge Summary: Date of Admission: 08/02/2018 Date of Discharge: 07/10/2018 Consults: Cardiology Procedures: TTE, CTA, CXR, US LLE Followup: PCP, Cardiology, Wound Clinic #MSSA/Pseudomonas RLE cellulitis - superimposed on known venous stasis. - Narrowed to Ancef 08/08/18. s/p 7 day course per ID - Wound care, elevate legs - CTA legs without PAD - R > L edema on 07/09, LE U/S ordered which was negative for DVT #Hyperkalemia - now resolved, discontinuing Spiranolactone per Cardiology #Rash: much improved. From Demadex. PRN hydroxyzine. Less itching today - Continue Zyrtec qd #Hypotension: resolved. Resumed home bP meds #Chronic systolic CHF - EF 33% - s/p BiV ICD - Coreg 12.5 BID, Enestro. Stable for discharge from Cardiology standpoint #CAD -known 100% occluded RCA. Statin #Morbid obesity BMI 45 - with JENNA/OHS #Chronic respiratory failure due to above. Baseline 2L *CKD: Cr at baseline #Hyponatremia: resolved. fluid restrict #Cardiac diet Time spent on discharge was >35 minutes with >50% of time spent on patient education and counseling.
--- NOTE | 2018-08-10 11:34 | ASMTLACE ---
LACE Length of stay for Answers: 7-13 days current admission Acuity / Level of Answers: Yes Care: Did the patient have an inpatient admission? Comorbidities - select Answers: Any tumor (including all that apply lymphoma or leukemia) Congestive heart failure Other Notes: HTN; Hypothyroid # of Emergency department Answers: 1-2 visits in the last 6 months Score: 14 Date Signed: 08/10/2018 11:33 AM Electronically Signed By:Gosia Xiong RN
--- NOTE | 2018-08-10 11:46 | ASMTDCNOTE ---
Case Management Discharge Discharge Order Complete? Answers: Yes Patient to Obtain Answers: Other Notes: [facility] rehab Medications Transportation Arranged Answers: Other Notes: w/c transport arranged by [facility] Transport will Pick (Date 08/10/2018 11:45 AM & Time) Faxed Final Orders Answers: Yes Notes: to [facility] Agency/Facility Transfer Answers: Yes Notes: tp [facility] Report Printed & Faxed to Receiving Agency Family Notified Answers: Yes Notes: called daughter Aida o n the phone Discharge Comments Notes: 08/10/2018 Case Management Note Faxed final orders including detailed wound care instructions to [facility]. Notified Aida on the phone. Confirmed for Aida that pain medication was faxed to [facility] as well. [facility] arranged transport w/c with O2. RN called report. [facility] Date Signed: 08/10/2018 11:45 AM Electronically Signed By:Gosia Xiong RN
--- NOTE | 2018-08-10 11:47 | ASDISCHSUM ---
Discharge Information Plan Status:SNF Medically Cleared to Leave:08/09/2018 Discharge Date:08/09/2018 CM D/C Disposition:Long Term Facility ADT D/C Disposition: Projected Discharge Date:08/05/2018 11:00 AM Transportation at D/C:Wheelchair Van Discharge Delay Reason: Follow-Up Date:08/05/2018 11:00 AM Discharge Slot: Final Diagnosis: Placement Information Referral Type:*[facility]/SNF Referral ID:[id number] Provider Name:[facility] Address 1:[address] Address 2: City:[place] Selection Factors: State:[place] Patient Contact Information Contact Name:ALINA Relationship:Daughter Address:[address] [facility] City:[place] Alternate Phone: State/Zip Code:[place] [address] Email: Financial Information Financial Class:Medicare Primary Plan Desc:MEDICARE INPATIENT Primary Plan Number:[id number] Secondary Plan Desc:AARP/MDR SUPPLEMENT Secondary Plan Number:[id number] Assessment Information LACE LACE Length of stay for Answers: 7-13 days current admission Acuity / Level of Answers: Yes Care: Did the patient have an inpatient admission? Comorbidities - select Answers: Any tumor (including all that apply lymphoma or leukemia) Congestive heart failure Other Notes: HTN; Hypothyroid # of Emergency department Answers: 1-2 visits in the last 6 months Score: 14 Date Signed: 08/10/2018 11:33 AM Electronically Signed By:oGsia Xiong RN [facility] CM Progress Note CM Note CM Note Notes: Chart reviewed for discharge planning purposes. 77 year old female admitted with hypotension s/p fall at her home at [facility]. She was admitted through the ED with concerns of sepsis and leg wound. Therapy evaluations pending. CM to follow for needs. Plan: TBD Date Signed: 08/02/2018 10:49 AM Electronically Signed By:Hoa Valenzuela RN [facility] CM Progress Note CM Note CM Note Notes: CM met with pt. at this time PT/OT are recommending SNF. Pt was agreeable for CM to submit a referral to [facility]. CM to follow. Plan: SNF. Date Signed: 08/03/2018 05:18 PM Electronically Signed By:CARLITO Dawson [facility] CM Progress Note CM Note CM Note Notes: 08/04/2018 Case Management Note Discussed d/c plan with pt, son Asher [phone] and daughter Aida MEDRANO [phone]. Pt was at [facility] for approximately 2 hours before admission [address] [facility]. Pt agreeable to return. Faxed updates to [facility]. Onsite conversation with Africa velazquez from [facility]. Accepted pt for return. Discussed with RN. Anticipating d/c early next week. Case Management d/c poc: [facility] rehab. Case Management to follow. Date Signed: 08/04/2018 02:38 PM Electronically Signed By:Gosia Xiong RN [employer] Progress Note CM Note CM Note Notes: Per ID, patient does not need Daptomycin any more and only a few more days of Meropenem. Her discharge to [facility] was conditional on the above, so I alerted the facility. Anticipate undremarkable d/c to [facility] in 2-3 days. Case Management will follow. Date Signed: 08/07/2018 12:26 PM Electronically Signed By:Dawna Linares RN [employer] Progress Note CM Note CM Note Notes: Pts case discussed in tx rounds. Pt had concerns about [facility] abilities to address her wounds. However, she would like to return to [facility]. She wants to make sure they have the proper wound care supplies and instructions. Wound Care is not in today. [facility] nurse will call the outpatient wound care for direction. GAGE spoke to Dr. Major about this matter as well. Dr. Major is changing her ivabx to cefazolin. Pt will most likely be here for a couple more days. GAGE spoke to Keira at [facility] and she will speak to Aleta about the wound care concerns. GAGE spoke w/ pts son Jens on the phone about d/c POC. CM to follow. Plan: [facility] Date Signed: 08/08/2018 12:31 PM Electronically Signed By:CARLITO Mckeon Case Management Discharge Plan Note Case Management Discharge Discharge Order Complete? Answers: Yes Patient to Obtain Answers: Other Notes: [facility] Medications Transportation Arranged Answers: Other Notes: w/c transport arranged by [facility] Transport will Pick (Date 08/10/2018 11:45 AM & Time) Faxed Final Orders Answers: Yes Notes: to [facility] Agency/Facility Transfer Answers: Yes Notes: tp [facility] Report Printed & Faxed to Receiving Agency Family Notified Answers: Yes Notes: called daughter Aida espinal n the phone Discharge Comments Notes: 08/10/2018 Case Management Note Faxed final orders including detailed wound care instructions to [facility]. Notified Aida on the phone. Confirmed for Aida that pain medication was faxed to [facility] as well. [facility] arranged transport w/c with O2. RN called report. Case Management d/c poc: [facility]. Date Signed: 08/10/2018 11:45 AM Electronically Signed By:Gosia Xiong RN Intervention Information
== END 2018-08-10 12:10 | DRG 603 ==
LOC: EDUNIT# → F2N 07:37 → OBSVTOIN 10:30 → F2W 08-04 18:20
PROVIDERS: ADMIT Student in an Organized Health Care Education/Training Program; ATTEND Student in an Organized Health Care Education/Training Program
PROC: 02HV33Z Insertion of Infusion Device into Superior Vena Cava, Percutaneous Approach (ICD-10-PCS; principal; 2018-08-04)
DX: L03.115 Cellulitis of right lower limb (principal); I13.0 Hypertensive heart and chronic kidney disease with heart failure and stage 1 through stage 4 chronic kidney disease, or unspecified chronic kidney disease; I50.22 Chronic systolic (congestive) heart failure; E66.2 Morbid (severe) obesity with alveolar hypoventilation; Z68.42 Body mass index [BMI] 45.0-49.9, adult; J96.10 Chronic respiratory failure, unspecified whether with hypoxia or hypercapnia; E87.1 Hypo-osmolality and hyponatremia; N18.3 Chronic kidney disease, stage 3 (moderate); B95.61 Methicillin susceptible Staphylococcus aureus infection as the cause of diseases classified elsewhere; B96.5 Pseudomonas (aeruginosa) (mallei) (pseudomallei) as the cause of diseases classified elsewhere; I87.8 Other specified disorders of veins; E87.5 Hyperkalemia; L27.0 Generalized skin eruption due to drugs and medicaments taken internally; T50.1X5A Adverse effect of loop [high-ceiling] diuretics, initial encounter; I25.10 Atherosclerotic heart disease of native coronary artery without angina pectoris; E03.9 Hypothyroidism, unspecified; Z87.891 Personal history of nicotine dependence; Z85.3 Personal history of malignant neoplasm of breast; Z95.810 Presence of automatic (implantable) cardiac defibrillator
CPT/HCPCS: 96374; 97110-GP; 97116-GP; 97161-GP; 97166-GO; 97530-GO; 97530-GP; 97535-GO; C1751; J0690; J0878; J1200; J1644; J1650; J2185; J3010; Q9967